=== PATIENT | male | born 1950 | race Caucasian/White ===

== ENCOUNTER → 2016-07-10 | Outpatient (CLI) | payer MEDICARE ==
--- NOTE | 2016-07-10 13:18 | REP ---
Clinical: Trauma. Technique: AP, lateral, bilateral oblique views of the left toes. Findings: There is a very subtle intra-articular corner fracture at the base of the second toe distal phalanx involving the DIP joint. No other fracture dislocation identified. Impression: Small corner fracture at the base of the second toe distal phalanx. Signed by Tom Heath MD 07/10/2016 01:09 P
== END ==
LOC: M RAD 12:43
PROVIDERS: ATTEND Physician Assistant Medical
DX: S92.535A Nondisplaced fracture of distal phalanx of left lesser toe(s), initial encounter for closed fracture (principal); X58.XXXA Exposure to other specified factors, initial encounter; Y92.89 Other specified places as the place of occurrence of the external cause; Y93.89 Activity, other specified; Y99.8 Other external cause status

== ENCOUNTER → 2016-07-13 | Outpatient (CLI) | payer MEDICARE | LOC: M WUC 08:56 | PROVIDERS: ATTEND Physician Assistant Medical | DX: G40.89 Other seizures (principal) ==

== ENCOUNTER → 2016-08-04 | Outpatient (CLI) | payer MEDICARE ==
--- NOTE | 2016-08-04 13:10 | REP ---
Lumbar spine five views History: Back pain There is no acute fracture or subluxation. The L3-4 through L5-S1 intervertebral discs are decreased in height consistent with disc degeneration. Osteophytes are present on L1-5. There is narrowing of the L4-5 and L5-S1 facet joints. There is scoliosis convex to the right. IMPRESSION: Degenerative change as described above. Signed by David Jimenez MD 08/04/2016 01:31 P
== END ==
LOC: M WUC 11:53
PROVIDERS: ATTEND Family Medicine
DX: M51.36 Other intervertebral disc degeneration, lumbar region (principal); M51.37 Other intervertebral disc degeneration, lumbosacral region

== ENCOUNTER 2016-09-01 23:17 | Inpatient (IN) | payer MEDICARE, MEDICAID ==
[~2016-09-01] VITALS: Ht 175.3 cm; Wt 77.2 kg
[2016-09-01] MEDS ORDERED: KEPP500T5 (23:37)
[2016-09-01] MEDS ORDERED: COMB0.2S OU (23:37)
[2016-09-01] MEDS ORDERED: OXYB5TA PO (23:37)
[2016-09-01] MEDS ORDERED: FIBE62TA PO (23:37)
[2016-09-01] MEDS ORDERED: DIVA500T3 PO (23:37)
[2016-09-01] MEDS ORDERED: FLOM5CAP PO (23:37)
[2016-09-01] MEDS ORDERED: COLA100C3 PO (23:37)
[2016-09-01] MEDS ORDERED: PROV100T4 PO (23:37)
[2016-09-01] MEDS ORDERED: [UNRECOGNIZED DRUG - OTHER] (23:37)
[2016-09-01] MEDS ORDERED: VIMP50TA3 PO (23:37)
[2016-09-02] MEDS ORDERED: ONDANSETRON 4MG/2ML VIAL (J2405) IV ONE (00:30)
[2016-09-02] MEDS ORDERED: MORPHINE 4 MG/ML 1ML SYRINGE IV PRN (00:30)
[2016-09-02 01:06] LABS: BASO % 0.2 % (0.0-1.0); EOS % 0.2 % (0.0-3.0); LARGE UNSTAINED CELL % 0.3 % (0.0-4.0); LYMPH # 0.5 K/mm3 (1.5-4.5); LYMPH % 3.7 % (24.0-44.0); MEAN CORPUSCULAR HEMOGLOBIN 31.4 pg (27.0-33.0); MEAN CORPUSCULAR HGB CONC 34.7 g/dl (32.0-36.5); MEAN CORPUSCULAR VOLUME 90.4 fl (80.0-96.0); MONO # 0.4 K/mm3 (0.0-0.8); MONO % 3.7 % (0.0-5.0); NEUTROPHILS # 10.5 K/mm3 (1.8-7.7); NEUTROPHILS % 91.9 % (36.0-66.0); PLATELET COUNT, AUTOMATED 221 k/mm3 (150-450); RED CELL DISTRIBUTION WIDTH 13.8 % (11.5-14.5); WHITE BLOOD COUNT 11.4 K/mm3 (4.0-10.0)
[2016-09-02] MEDS ORDERED: ISOVUE-370 76% 100ML VIAL (Q9967) As Ordered ONE (01:08)
[2016-09-02 01:33] LABS: ALBUMIN 3.7 GM/DL (3.2-5.2); ALBUMIN/GLOBULIN RATIO 1.09 (1.00-1.93); ALKALINE PHOSPHATASE 94 U/L (45-117); ALT/SGPT 19 U/L (12-78); ANION GAP 6 MEQ/L (8-16); AST/SGOT 13 U/L (15-37); BILIRUBIN,DIRECT 0.2 MG/DL (0.0-0.2); BILIRUBIN,TOTAL 0.5 MG/DL (0.2-1.0); BLOOD UREA NITROGEN 16 MG/DL (7-18); CALCIUM LEVEL 8.7 MG/DL (8.8-10.2); CARBON DIOXIDE LEVEL 30 MEQ/L (21-32); CHLORIDE LEVEL 93 MEQ/L (98-107); CREATININE FOR GFR 0.69 MG/DL (0.70-1.30); GLOMERULAR FILTRATION RATE > 60.0 (>49); GLUCOSE, FASTING 148 MG/DL (80-110); POTASSIUM SERUM 4.3 MEQ/L (3.5-5.1); SODIUM LEVEL 129 MEQ/L (136-145); TOTAL PROTEIN 7.1 GM/DL (6.4-8.2)
--- NOTE | 2016-09-02 02:30 | REPUSA ---
CLINICAL HISTORY: Abdominal pain. TECHNIQUE: Multiple axial, sagittal and coronal CT images were obtained through the abdomen and pelvi s after administration of oral and intravenous contrast material. COMMENTS: Comparison is made to the prior exam performed on 06/10/2015. Interval appearance of bilateral basilar atelectatic pulmonary changes and groundglass densities of t he lung bases. Moderate sliding hiatal hernia. Fluid and air distended stomach. Moderate partial small bowel obstruction. Transition zone in the right lower quadrant. Associated mil d ascites. Partial colectomy. Unremarkable left total quadrant colostomy. The liver is of uniform attenuation without mass or defect. There is no intra or extrahepatic biliary ductal dilatation. The spleen is normal. The gallbladder is distended containing multiple gallstones . The pancreas is of normal contour and attenuation characteristics. There is no evidence of adrenal mass. Both kidneys demonstrate prompt and equal nephrograms. The kidneys are normal in size, shape and conf iguration. There is no evidence of renal or ureteral mass. No renal or ureteral calculi are identifie d. There is no hydroureter or hydronephrosis. No evidence for appendicitis. There is no evidence of intrinsic or extrinsic bladder mass. Images of the lung bases show no evidence of pleural or parenchymal mass. There are no pleural effusi ons. Bilateral basilar atelectatic pulmonary changes. The bony structures are free of lytic or blastic lesions. Multilevel degenerative changes are seen in volving the thoracolumbar spine. Scattered calcifications are seen involving the aorta and major bran ches compatible with atherosclerosis. IMPRESSION: Moderate partial small bowel obstruction. Transition zone in the right lower quadrant. No evidence of bowel perforation or pneumatosis intestinalis. Mild ascites. Sliding hiatal hernia. Significantly distended gallbladder containing gallstones. Thank you for your kind referral of this patient.
[2016-09-02] MEDS ORDERED: FLON50SP (03:59)
[2016-09-02] MEDS ORDERED: MODA200T15 PO (03:59)
[2016-09-02] MEDS ORDERED: KEPP500T6 PO (03:59)
[2016-09-02] MEDS ORDERED: TRAV04OPD OU (03:59)
[2016-09-02] MEDS ORDERED: ALEN70TA39 PO (03:59)
[2016-09-02] MEDS ORDERED: CALCTAB68 PO (03:59)
[2016-09-02] MEDS ORDERED: ACET-654 PO (04:00)
[2016-09-02 04:45] VITALS: BP 139/82
[2016-09-02] MEDS ORDERED: ONDANSETRON 4MG/2ML VIAL (J2405) IV PRN (05:15)
[2016-09-02] MEDS: LR 1,000 ML IV SCH ×2 (05:24→14:36)
[2016-09-02 06:00] VITALS: BP 135/71
[2016-09-02 08:00] VITALS: BP 147/77
[2016-09-02] MEDS ORDERED: MAGNESIUM CITRATE 300 ML BTL PO ONE (09:15)
[2016-09-02] MEDS: PANTOPRAZOLE 40MG INJ (PROTONIX) (C9113) IV SCH (10:37)
[2016-09-02] MEDS: SENOKOT S TAB PO SCH ×2 (10:37→22:04)
[2016-09-02] MEDS: levETIRAcetam 250MG TABLET (KEPPRA) PO SCH ×2 (10:37→22:03)
[2016-09-02] MEDS: LACOSAMIDE 50 MG TAB (VIMPAT) PO SCH ×2 (10:37→22:03)
[2016-09-02] MEDS: DIVALPROEX 500 MG TAB PO SCH ×3 (10:37→22:03)
[2016-09-02] MEDS: AMPICILLIN SOD/SULBACTAM SOD 3 GM in D5W MINI-BAG PLUS 100 ML IV SCH ×3 (10:38→22:23)
[2016-09-02] MEDS: MODAFINIL 200MG TABLET PO SCH (10:38)
--- NOTE | 2016-09-02 10:58 | HPE ---
DATE OF ADMISSION: 09/02/2016 CHIEF COMPLAINT: Abdominal pain. HISTORY OF PRESENT ILLNESS: The patient 65-year-old male, currently a [facility] ([facility]) patient with mild intellectual disability. Presents to the emergency room (ER) with complaints of pain around his ostomy and low outputs for the past couple of days. He had a couple episodes of nausea and vomiting; and once he reached the emergency room, his bag was full the air. Laboratories were completed that showed he had a slightly elevated white count, as well as some hyponatremia; and then a CT scan was done, which showed some slightly dilated loops of small intestine with a transition zone somewhere in the right lower quadrant. No distinct transition site was identified. The patient does have the ostomy in the left lower quadrant. He is unsure of what this was for. He thinks it was due to having some bowel in the area, but the patient is a fairly poor historian. He was able to answer a few yes-and-no questions but not much more than that. The rest of her the history was obtained from his limited chart. These symptoms appear to have only been going on for a day or two. Currently, on examination, he feels much better. He has no more nausea or vomiting. No abdominal pains. He denies fevers, although the nurses reported a fever of 100.6 this morning. No problems with cough, shortness of breath. No difficulty with ambulation and no difficulty with diet. ALLERGIES: None. HOME MEDICATIONS: Please see medical record. REVIEW OF SYSTEMS: As per the history of present illness (HPI). MEDICAL HISTORY: History of seizures, osteoporosis, benign prostatic hypertrophy (BPH), and a colostomy. PAST SURGICAL HISTORY: Left knee surgery and a colostomy creation. SOCIAL HISTORY: Negative. PHYSICAL EXAMINATION: General: The patient is awake and alert. Vital signs: Temperature 98.9, pulse 72, respirations 18, blood pressure 138/81, pulse oximetry 96% on room air. HEENT: Pupils equally round and react to light and accommodation. Heart: S1, S2. Regular rate and rhythm. Lungs: Clear to auscultation bilaterally. Abdomen: Soft, nondistended, and nontender. Ostomy in the left lower quadrant. No signs of parastomal hernia. The ostomy is pink and patent. There is no air or stool in the bag currently. Extremities: No clubbing, cyanosis, or edema. LABORATORIES: White count 11.4, hemoglobin 13.3, platelets 221. Sodium 129, potassium 4.3, creatinine 0.69, lipase 139. IMAGING: CT abdomen and pelvis shows a moderate partial small bowel obstruction, transition zone in the right lower quadrant. No evidence of bowel perforation or pneumatosis intestinalis. ASSESSMENT AND PLAN: The patient is a 65-year-old male, currently a [facility] patient, presents with some vomiting and some abdominal pain, found to have a partial versus complete small bowel obstruction on CAT scan. He also has a mild leukocytosis, mild hyponatremia. Recommendation at this time is to keep him with the nasogastric (NG) tube for decompression. He has already had about 300-400 mL of dark liquid out, and the abdomen is soft and nondistended. Once he starts to have output from his ostomy, we will remove the NG tube, started him on a clear-liquid diet, and once he is having normal output from his ostomy and his abdominal pain is resolved, he will be able to be discharged home. We will replace his sodium slowly, give him a dose of antibiotics because of the mild leukocytosis. This partial small bowel obstruction could be secondary to an inflammatory versus infectious source versus scar tissue from previous surgeries, and the antibiotics will help to resolve it if it is a mild infectious source. On further review of the CT scan, he does also appear to have a significant amount of stool and air in the large intestine. Therefore, I will also attempt to clamp his NG tube later this afternoon and give him a half a dose of magnesium citrate to see if that will help to flush out his system gently, as well; and then again, once his ostomy is producing, the NG tube will be removed, and we will slowly advance his diet until he is ready be discharged home.
[2016-09-02] MEDS: HEPARIN SOD (PORCINE) 5000 UNITS/ML VIAL SC SCH ×2 (14:34→22:05)
[2016-09-02 16:00] VITALS: BP 141/74
[2016-09-02] MEDS: MORPHINE 2 MG/ML 1ML SYRINGE IV PRN (20:04)
--- NOTE | 2016-09-02 20:11 | REP ---
Clinical: NG tube placement. Technique: Two portable semiupright views of the chest. Findings: A nasogastric tube is identified coiled back in the mid esophagus. Mediastinum and cardiac silhouette are stable. Bibasilar atelectasis is suggested. Impression: Nasogastric tube coiled back in the mid esophagus. Bibasilar atelectasis. Signed by Tom Heath MD 09/02/2016 08:01 P
[2016-09-02 22:00] VITALS: BP 144/77
[2016-09-02] MEDS: TAMSULOSIN 0.4 MG CAP PO SCH (22:03)
[2016-09-02] MEDS: oxyBUTYnin 5 MG TAB PO SCH (22:04)
[2016-09-02] MEDS: LATANOPROST 0.005% OPHTH SOLN 2.5 ML OU SCH (22:05)
[2016-09-03] MEDS: LR 1,000 ML IV SCH ×2 (01:46→10:15)
[2016-09-03] MEDS: MORPHINE 2 MG/ML 1ML SYRINGE IV PRN ×3 (01:47→21:08)
[2016-09-03] MEDS: AMPICILLIN SOD/SULBACTAM SOD 3 GM in D5W MINI-BAG PLUS 100 ML IV SCH ×4 (05:46→22:00)
[2016-09-03] MEDS: HEPARIN SOD (PORCINE) 5000 UNITS/ML VIAL SC SCH ×3 (05:47→21:08)
[2016-09-03 06:00] VITALS: BP 142/80
[2016-09-03 07:00] LABS: MEAN CORPUSCULAR HEMOGLOBIN 31.2 pg (27.0-33.0); MEAN CORPUSCULAR HGB CONC 34.9 g/dl (32.0-36.5); MEAN CORPUSCULAR VOLUME 89.3 fl (80.0-96.0); RED CELL DISTRIBUTION WIDTH 13.5 % (11.5-14.5)
[2016-09-03 07:34] LABS: ANION GAP 7 MEQ/L (8-16); BLOOD UREA NITROGEN 11 MG/DL (7-18); CALCIUM LEVEL 7.7 MG/DL (8.8-10.2); CARBON DIOXIDE LEVEL 30 MEQ/L (21-32); CHLORIDE LEVEL 93 MEQ/L (98-107); CREATININE FOR GFR 0.59 MG/DL (0.70-1.30); GLOMERULAR FILTRATION RATE > 60.0 (>49); GLUCOSE, FASTING 120 MG/DL (80-110); MAGNESIUM LEVEL 1.9 MG/DL (1.8-2.4); POTASSIUM SERUM 3.7 MEQ/L (3.5-5.1); SODIUM LEVEL 130 MEQ/L (136-145)
--- NOTE | 2016-09-03 07:37 | REP ---
Clinical: Nasogastric tube placement. Comparison: 09/02/2016 at 07:27 p.m. Findings: Nasogastric tube is now identified in satisfactory position extending below left hemidiaphragm. Bibasilar infiltrate/atelectasis again noted. Small layering effusion cannot be excluded. No pneumothorax. Mediastinum and cardiac silhouette are stable. Atherosclerotic changes to the thoracic aorta again noted. Skeletal structures intact. Impression: Nasogastric tube courses below left hemidiaphragm in satisfactory position. Bibasilar atelectasis/infiltrate. Signed by Tom Heath MD 09/03/2016 07:29 A
[2016-09-03] MEDS: PANTOPRAZOLE 40MG INJ (PROTONIX) (C9113) IV SCH (09:27)
[2016-09-03] MEDS: SENOKOT S TAB PO SCH ×2 (09:30→20:04)
[2016-09-03] MEDS: DIVALPROEX 500 MG TAB PO SCH ×3 (09:30→20:04)
[2016-09-03] MEDS: LACOSAMIDE 50 MG TAB (VIMPAT) PO SCH ×2 (09:31→20:04)
[2016-09-03] MEDS: levETIRAcetam 250MG TABLET (KEPPRA) PO SCH ×2 (09:31→20:04)
[2016-09-03] MEDS: MODAFINIL 200MG TABLET PO SCH (09:31)
[2016-09-03 14:00] VITALS: BP 139/89
[2016-09-03] MEDS: KCL 10MEQ IN D5/0.45NS 1000ML 1,000 ML IV SCH (15:06)
[2016-09-03] MEDS: BISACODYL 10 MG SUPP XX SCH ×2 (16:43→23:01)
[2016-09-03] MEDS: oxyBUTYnin 5 MG TAB PO SCH (20:04)
[2016-09-03] MEDS: LATANOPROST 0.005% OPHTH SOLN 2.5 ML OU SCH (20:04)
[2016-09-03] MEDS: TAMSULOSIN 0.4 MG CAP PO SCH (20:04)
[2016-09-03 20:45] VITALS: BP 132/77
[2016-09-04] VITALS (13 sets, daily range): BP systolic 96–119; BP diastolic 61–71
[2016-09-04] MEDS: KCL 10MEQ IN D5/0.45NS 1000ML 1,000 ML IV SCH ×2 (01:35→04:05)
[2016-09-04] MEDS: AMPICILLIN SOD/SULBACTAM SOD 3 GM in D5W MINI-BAG PLUS 100 ML IV SCH (04:04)
[2016-09-04] MEDS ORDERED: LR 500 ML IV ONE (04:30)
[2016-09-04] MEDS: HEPARIN SOD (PORCINE) 5000 UNITS/ML VIAL SC SCH ×3 (05:41→23:33)
[2016-09-04] MEDS: BISACODYL 10 MG SUPP XX SCH ×3 (05:41→17:32)
[2016-09-04] MEDS ORDERED: ALENDRONATE 70 MG TABLET (FOSAMAX) PO SCH (06:00)
[2016-09-04] MEDS: ACETAMINOPHEN 325 MG SUPP PR PRN (06:06)
[2016-09-04 06:55] LABS: MEAN CORPUSCULAR HEMOGLOBIN 31.2 pg (27.0-33.0); MEAN CORPUSCULAR VOLUME 89.1 fl (80.0-96.0); PLATELET COUNT, AUTOMATED 170 k/mm3 (150-450); RED CELL DISTRIBUTION WIDTH 13.6 % (11.5-14.5); WHITE BLOOD COUNT 3.4 K/mm3 (4.0-10.0)
[2016-09-04 07:04] LABS: ANION GAP 7 MEQ/L (8-16); BLOOD UREA NITROGEN 15 MG/DL (7-18); CALCIUM LEVEL 7.7 MG/DL (8.8-10.2); CARBON DIOXIDE LEVEL 28 MEQ/L (21-32); CHLORIDE LEVEL 91 MEQ/L (98-107); CREATININE FOR GFR 0.66 MG/DL (0.70-1.30); GLOMERULAR FILTRATION RATE > 60.0 (>49); GLUCOSE, FASTING 116 MG/DL (80-110); MAGNESIUM LEVEL 2.1 MG/DL (1.8-2.4); POTASSIUM SERUM 3.7 MEQ/L (3.5-5.1); SODIUM LEVEL 126 MEQ/L (136-145)
--- NOTE | 2016-09-04 07:06 | REP ---
Clinical: Abdominal distension. Pneumoperitoneum. Technique: Portable supine view of the abdomen and pelvis. Findings: Evaluation is significantly limited by technique. A nasogastric tube is identified just passing the level of diaphragm and may warrant advancement. Gas filled stomach and air filled loops of bowel are identified along with diffuse hazy opacifications. No secondary signs are appreciated to suggest pneumoperitoneum although evaluation is significantly limited. Ostomy is identified overlying the left lower quadrant. Impression: 1. Significantly limited examination demonstrating air-filled stomach and for bowel without obvious or secondary signs of pneumoperitoneum. 2. Consider advancement of the nasogastric tube which is suspected to be just below the level of diaphragm. Signed by Tom Heath MD 09/04/2016 06:58 A
[2016-09-04] MEDS ORDERED: SODIUM CHLORIDE 0.9% 1000 ML IV ONE ×2 (07:30→14:30)
--- NOTE | 2016-09-04 07:50 | CR ---
DATE OF CONSULTATION: 09/04/2016 REASON FOR CONSULTATION: Atrial fibrillation with rapid ventricular response (RVR). CONSULTING PHYSICIAN: Dr. Faye covering for Dr. Ackerman. HISTORY OF PRESENT ILLNESS: Patient is a 65-year-old, [facility]) patient who presented to the hospital on 09/03/2016 after he started having pain around his colostomy and low output over the past 2 days. Patient had two episodes of nausea and vomiting. In the emergency room, he underwent a CT scan which showed slightly dilated loops of small intestine with transition zone somewhere in the right lower quadrant. He was admitted under surgical service for partial versus complete small bowel obstruction. Nasogastric (NG) tube was placed and patient was started on Unasyn for possible infectious etiology. Earlier this morning, patient went into atrial fibrillation RVR with heart rate in the 160s and the hospitalist service was consulted. REVIEW OF SYSTEMS: Unable to obtain due to patient's current mental status. PAST MEDICAL HISTORY: Significant for a history of seizures, osteoporosis, BPH and colostomy. SURGICAL HISTORY: Significant for colostomy and left knee surgery. SOCIAL HISTORY: Patient lives in a [facility] facility. FAMILY HISTORY: Noncontributory. ALLERGIES: None. HOME MEDICATIONS: Include: - Tylenol 650 mg every 4 hours as needed for pain - alendronate 70 mg by mouth once a week - calcium polycarbophil one tablet by mouth twice a day - calcium with vitamin D one tablet by mouth twice a day - divalproex 500 mg by mouth three times a day - Colace 100 mg by mouth twice a day - oxybutynin 5 mg at bedtime - modafinil 4 mg by mouth daily - Keppra 500 mg by mouth twice a day - Vimpat 50 mg by mouth twice a day - Flomax 0.4 mg at bedtime - Travatan one drop in each eye at bedtime PHYSICAL FINDINGS: Vital signs: 100.2 for temperature, pulse is 176, respiratory rate 30, blood pressure is 98/66, pulse oximetry 92% on 2 liter nasal cannula. HEENT: Pupils equal, round, and reactive to light and accommodation. Neck: Supple. No jugular venous distention (JVD). Lungs: Clear to auscultation (CTA) bilaterally. Abdomen: No tenderness to palpation, but abdomen is distended with hypoactive bowel sounds. Extremities: No clubbing, cyanosis or edema. LABORATORY FINDINGS: Sodium 126, potassium 3.7, chloride 91, BUN 15, creatinine 0.66, fasting glucose 116, calcium 7.7. Lactic acid yesterday was 1.3. WBC 3.4, hemoglobin 14, hematocrit 40.1, platelet count 170. Blood cultures are pending. Patient underwent a CT abdomen and pelvis on admission, which showed moderate partial small bowel obstruction. No evidence of bowel perforation. Another KUB was ordered this morning, which showed significantly limited exam, but demonstrating air-filled stomach and bowel without obvious or secondary signs of pneumoperitoneum. Chest x-ray showed NG tube in place and bibasilar atelectasis. ASSESSMENT AND PLAN: 1. Sepsis. Unknown etiology at this time. May be secondary to gastrointestinal process versus other. We will obtain blood cultures times two sets. We will start patient on broad-spectrum antibiotics, vancomycin and Zosyn. We will order lactic acid. We will continue IV fluids after a bolus of 500 mL. We will transfer patient down to progressive care unit (PCU). 2. Atrial fibrillation with rapid ventricular response. Likely secondary to sepsis with unknown etiology. We will start patient on a 500 mL fluid bolus and monitor on telemetry. May need cardiology consultation. 3. Small bowel obstruction. Surgery is involved in managing. Patient currently has NG tube with low output per KUB this morning. NG tube may need to be readjusted. We will defer to surgery for further imaging. 4. History of seizure disorder. Continue patient's home medications. 5. History of osteoporosis. 6. Deep venous thrombosis (DVT) prophylaxis. Sequential compressive devices (SCDs) while in bed.
[2016-09-04] MEDS: VANCOMYCIN HCL 1,000 MG, VIAL MATE ADAPTER 1 EACH in D5W 250 ML IV SCH ×2 (08:06→17:36)
[2016-09-04 08:17] LABS: BLOOD UREA NITROGEN 16 MG/DL (7-18); CHLORIDE LEVEL 91 MEQ/L (98-107); CREATININE FOR GFR 0.68 MG/DL (0.70-1.30); GLOMERULAR FILTRATION RATE > 60.0 (>49); GLUCOSE, FASTING 123 MG/DL (80-110); POTASSIUM SERUM 3.9 MEQ/L (3.5-5.1); SODIUM LEVEL 129 MEQ/L (136-145)
[2016-09-04 08:18] LABS: ANION GAP 9 MEQ/L (8-16); CALCIUM LEVEL 7.4 MG/DL (8.8-10.2); CARBON DIOXIDE LEVEL 29 MEQ/L (21-32)
--- NOTE | 2016-09-04 08:39 | PHACANCOPD ---
PHARMACY VANCOMYCIN DOSING Pt Demographics Demographics Patient Age:65 , Weight:72.000 , Gender: male Adjusted Body Weight Date: 09/04/16, Adjusted Body Weight: Kg Events Past 24 Hours Events Past 24 Hours: YES: Fever, Pending Diagnostics Vancomycin Vancomycin indication: SEPSIS Vancomycin Target Ranges: 15-20 mcg/ml Vancomycin Load Y/N: Yes Load Dose Date Time Vancomycin Load Dose: 1750mg Date: 09/04/16 Time: 0800 Vancomycin Dose Date: 09/04/16. Current Vancomycin Dose: [1g IV Q8H] Intermittent Dosing?: No Labs Labs Item Value Date Time White Blood Count 3.4 K/mm3 L 09/04/16 0635 White Blood Count 15.0 K/mm3 H 09/03/16 0639 White Blood Count 11.4 K/mm3 H 09/02/16 0030 Creatinine 0.68 MG/DL L 09/04/16 0726 Creatinine 0.66 MG/DL L 09/04/16 0635 Creatinine 0.59 MG/DL L 09/03/16 0639 Micro Microbiology 09/04/16 Blood Culture, Received Pending 09/04/16 Blood Culture, Received Pending Creatinine Clearance Date:09/04/16. Estimated Creatinine Clearance: [>100ml/min]. Pending Labs Vancomycin trough scheduled 09/05/16 @0700, prior to the 4th dose Assessment and Plan Maintaining Current Dose?: Yes Reason for dose change: No Dose Change Pharmacist Note Pharmacist Note Date: 09/04/16. Pharmacist note: Day #1 empiric zosyn/vancomycin initiated with a 1750mg loading dose, followed by a maintenance regimen of 1g IV Q8H for the treatment of sepsis - aiming for a goal trough of 15-20mcg/ml. WBC and BP are currently low, and pulse, temp, and RR are elevated. No PMH of MRSA or vanco use here at [facility]. A vancomycin trough has been scheduled 09/05/16 @0700. We will continue to monitor and adjust accordingly. [facility] September 04, 2016 08:39
[2016-09-04] MEDS ORDERED: GASTROGRAFIN SOLUTION 30ML PO ONE (08:45)
[2016-09-04] MEDS: DIVALPROEX 500 MG TAB PO SCH ×2 (08:55→14:05)
[2016-09-04] MEDS: SENOKOT S TAB PO SCH (08:56)
[2016-09-04] MEDS: MODAFINIL 200MG TABLET PO SCH (08:56)
--- NOTE | 2016-09-04 08:56 | REP ---
Clinical: Hypoxia. Comparison: 09/02/2016. Findings: Moderate right pleural effusion is suggested with bibasilar atelectasis. Further evaluation is limited by portable technique and poor inspiratory effort. No free air is identified below the diaphragm to suspect pneumoperitoneum. Mediastinum and cardiac silhouette are stable. A nasogastric tube is identified with its tip just extending below the diaphragm and may warrant advancement. No pneumothorax. Skeletal structures intact. Impression: Suspected moderate right pleural effusion and basilar atelectasis. Consider advancement to the nasogastric tube. No obvious free air below diaphragm to suspect pneumoperitoneum. Signed by Tom Heath MD 09/04/2016 08:47 A
[2016-09-04] MEDS ORDERED: VANCOMYCIN HCL 750 MG, VIAL MATE ADAPTER 1 EACH in D5W 250 ML IV ONE ×2 (09:00→21:58)
[2016-09-04] MEDS ORDERED: PREVNAR 13 VACCINE SYRINGE (CPT CODE:90670) IM ONE (09:00)
[2016-09-04] MEDS ORDERED: LACOSAMIDE 10MG/ML 20ML VIAL (VIMPAT) (C9254) IV SCH (09:00)
[2016-09-04] MEDS: PANTOPRAZOLE 40MG INJ (PROTONIX) (C9113) IV SCH (09:10)
[2016-09-04] MEDS: LACOSAMIDE 10MG/ML 20ML VIAL (VIMPAT) (C9254) IV SCH (09:11)
[2016-09-04] MEDS ORDERED: GASTROGRAFIN SOLUTION 30ML (Q9963) PO ONE ×2 (09:15→21:58)
[2016-09-04] MEDS ORDERED: NS 1,500 ML IV ONE (09:30)
[2016-09-04 09:31] LABS: BASO % 0.3 % (0.0-1.0); EOS % 0.3 % (0.0-3.0); LARGE UNSTAINED CELL # 0.1 K/mm3 (0.0-0.4); LARGE UNSTAINED CELL % 1.4 % (0.0-4.0); LYMPH # 0.5 K/mm3 (1.5-4.5); LYMPH % 11.8 % (24.0-44.0); MONO # 0.6 K/mm3 (0.0-0.8); MONO % 17.2 % (0.0-5.0); NEUTROPHILS # 2.4 K/mm3 (1.8-7.7); NEUTROPHILS % 69.1 % (36.0-66.0)
[2016-09-04 09:50] LABS: BANDS 16 % (< 11); BASOPHILS 1 % (0-4); EOSINOPHILS 1 % (0-5)
[2016-09-04 09:58] LABS: DIFF SLIDE NUMBER 28
[2016-09-04 10:10] LABS: OSMOLALITY SERUM 266 MOSM/KG (280-301)
[2016-09-04] MEDS ORDERED: ISOVUE-370 76% 100ML VIAL (Q9967) As Ordered ONE (10:29)
[2016-09-04] MEDS: PIPERACILLIN/TAZOBACTAM SOD 3.375 GM in D5W MINI-BAG PLUS 50 ML IV SCH ×2 (11:22→18:00)
--- NOTE | 2016-09-04 11:22 | REP ---
Clinical: Bowel obstruction. Comparison: 09/02/2016. Technique: Axial contrast enhanced images from the lung bases to the pubic symphysis using oral and 100 ml Isovue 370 intravenous contrast material with coronal and sagittal re-formations. Findings: There is evidence for high-grade small bowel obstruction with small-bowel fecal sign extending to the right lower abdomen/pelvis likely related to the point of obstruction, but the exact transition is not identifiable. The colon is completely collapsed to the ostomy in the left lower anterior abdominal wall. Moderate amount of free fluid is identified without free air to suggest perforation. Liver, spleen, pancreas, bilateral adrenal glands and kidneys are relatively normal. Incidental note is made of a 1.7 cm left renal cyst. Cholelithiasis noted without CT evidence for acute cholecystitis. Pelvis demonstrates a Tai catheter in collapsed bladder and age appropriate prostate/seminal vesicles. Normal Dawna's pouch identified in the pelvis. Musculoskeletal structures demonstrate degenerative changes including hemangioma in the T12 vertebral body as well as posterior left eighth through tenth rib fractures. Lung bases demonstrate right lower lobe consolidation and smaller left lower lobe consolidation along with small pleural effusions. Impression: 1. High-grade small bowel obstruction with transition suggested in the right lower abdomen. Complete collapse of the residual colon extending to the ostomy. Small to moderate amount of free fluid. No free air. 2. Moderate right and small left lower lobe consolidations with small pleural effusions. 3. Multiple nondisplaced left posterior rib fractures appear subacute. 4. 1.7 cm left renal cyst. Signed by Tom Heath MD 09/04/2016 11:14 A
[2016-09-04 11:24] LABS: MEAN CORPUSCULAR HEMOGLOBIN 30.5 pg (27.0-33.0); MEAN CORPUSCULAR HGB CONC 33.8 g/dl (32.0-36.5); MEAN CORPUSCULAR VOLUME 90.2 fl (80.0-96.0); PLATELET COUNT, AUTOMATED 144 k/mm3 (150-450); RED CELL DISTRIBUTION WIDTH 13.4 % (11.5-14.5)
--- NOTE | 2016-09-04 11:29 | REP ---
Clinical: Small bowel obstruction and chest pain with dyspnea. Rule out infiltrate. Technique: Axial contrast enhanced images from the thoracic inlet to the upper abdomen using 100 ml Isovue 370 intravenous contrast material with coronal and sagittal re-formations. Findings: Moderate right and small left lower lobe consolidations with associated small pleural effusions (right greater than left) noted. No pneumothorax. Tracheobronchial tree is patent. No obvious adenopathy. Atherosclerotic changes to the thoracic aorta and coronary arteries noted without aortic aneurysm/dissection or cardiomegaly. Nasogastric tube terminates at the gastroesophageal junction and oral contrast fills the mid/distal esophagus and stomach. Upper abdomen demonstrates presumed high-grade small bowel obstruction with ascites. Skeletal structures demonstrate a subacute left 8th through 11th rib fractures and hemangioma in the T12 vertebral body. Impression: 1. Moderate right and small left lower lobe consolidations with air bronchograms and associated pleural effusions. 2. The nasogastric tube terminates at the gastroesophageal junction and requires advancement. Oral contrast noted in the mid to distal esophagus and stomach. 3. Left 8th through 11th rib fractures appears subacute. Signed by Tom eHath MD 09/04/2016 11:20 A
[2016-09-04] MEDS ORDERED: MORPHINE 2 MG/ML 1ML SYRINGE IV ONE (11:30)
[2016-09-04 11:49] LABS: BANDS 6 % (< 11); BASOPHILS 1 % (0-4)
[2016-09-04 11:59] LABS: ANION GAP 6 MEQ/L (8-16); BLOOD UREA NITROGEN 13 MG/DL (7-18); CALCIUM LEVEL 7.1 MG/DL (8.8-10.2); CARBON DIOXIDE LEVEL 32 MEQ/L (21-32); CHLORIDE LEVEL 92 MEQ/L (98-107); CREATININE FOR GFR 0.69 MG/DL (0.70-1.30); GLOMERULAR FILTRATION RATE > 60.0 (>49); GLUCOSE, FASTING 94 MG/DL (80-110); POTASSIUM SERUM 4.1 MEQ/L (3.5-5.1); SODIUM LEVEL 130 MEQ/L (136-145)
[2016-09-04] MEDS: levETIRAcetam INJection 500 MG in D5W MINI-BAG PLUS 100 ML IV SCH ×2 (12:05→23:33)
[2016-09-04] MEDS: NS 1,000 ML IV SCH ×2 (12:26→23:26)
[2016-09-04] MEDS ORDERED: MORPHINE 2 MG/ML 1ML SYRINGE IV PRN (13:00)
--- NOTE | 2016-09-04 14:35 | ECGEPIP ---
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
--- NOTE | 2016-09-04 14:37 | IPNPDOC ---
Text Note Date of Service The patient was seen on 09/04/16. NOTE Subjective: Patient is a 65 year old male from [facility] with a PMHx of Seizures, Osteoporosis, BPH and Sigmoidectomy - s/p Colostomy (2/2 Obstruction) who presented to the ER on 09/03/2016 after there was decreased output from the colostomy. Patient was found to have nausea and vomiting. He received a CT abdomen/pelvis which revealed a SBO (partial vs. complete). He received an NGT and was started on Unasyn. On the morning of 09/04/2016 patient had gone into a tachycardic episode and the hospitalist service was consulted. Patient was seen and examined at the bedside. He was noted to have left upper / lower quadrant abdominal pain. Objective: Vitals (See below) General: Lying in bed, no acute distress, comfortable, AAOx3 HEENT: NC, AT, NGT in place CVS: Tachycardic, regular rhythm, +S1S2 Lungs: Fair air entry b/l, -w/r/r Abdomen: Soft, Mildly distended, Left upper / lower quadrant, +BSx4 Extremities: +PPx4, - Edema, - Calf tenderness Assessment and plan: 1. Hypotensive / Tachycardic - likely 2/2 sepsis, less likely 2/2 arrhythmia - Etiology of sepsis - likely 2/2 intra-abdominal source, possibly 2/2 healthcare associated pneumonia - Physical reveals L upper / lower quadrant abdominal pain; + Fever of 100.2F - EKG reviewed; appears regular, P waves present, sinus tachycardia - CT chest 09/04: moderate R & L LL consolidations + pleural effusions, L 8-11th rib fracture - CT abdomen / pelvis 09/04: high grade SBO, 1.7 cm L renal cyst - Will check cardiac enzymes and trend - Will f/u Blood cultures - Will continue with IV fluid hydration; s/p 2 L bolus, will give additional 1 L and c/w 100cc/hr - c/w Broad spectrum antibiotics (Vancomycin and Zosyn - Day #0); s/p Unasyn - Plan for surgical intervention today with Dr. Ackerman 2. SBO - c/w IV fluid hydration to improve HR - BP has improved - c/w NGT - Plan for surgical intervention today with Dr. Ackerman 3. Seizure disorder - converted some medications to IV route; given SBO and history of nausea / vomiting - c/w seizure precautions 4. Osteoporosis 5. DVT prophylaxis - c/w SCDs VS,Fishbone, I+O VS, Fishbone, I+O Laboratory Tests 09/04/16 06:35 Red Blood Count 4.50, Mean Corpuscular Volume 89.1, Mean Corpuscular Hemoglobin 31.2, Mean Corpuscular Hemoglobin Concent 35.0, Red Cell Distribution Width 13.6 , Calcium Level 7.7 L 09/04/16 07:26 Calcium Level 7.4 L 09/04/16 11:09 Red Blood Count 4.31, Mean Corpuscular Volume 90.2, Mean Corpuscular Hemoglobin 30.5, Mean Corpuscular Hemoglobin Concent 33.8, Red Cell Distribution Width 13.4 , Calcium Level 7.1 L Vital Signs Date Time Temp Pulse Resp B/P (MAP) Pulse Ox O2 Delivery O2 Flow Rate FiO2 09/04/16 13:28 18 95 Nasal Cannula 2.0 09/04/16 13:01 100.5 155 108/63 (78) I&O- Last 24 Hours up to 6 AM 09/04/16 06:00 Intake Total 790 ml Output Total 975 ml Balance -185 ml CONNOR JONES MD September 04, 2016 14:37
--- NOTE | 2016-09-04 14:40 | ECGEPIP ---
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
[2016-09-04 14:47] LABS: ALBUMIN 2.5 GM/DL (3.2-5.2); ALBUMIN/GLOBULIN RATIO 0.83 (1.00-1.93); ALKALINE PHOSPHATASE 62 U/L (45-117); ALT/SGPT 12 U/L (12-78); ANION GAP 8 MEQ/L (8-16); AST/SGOT 10 U/L (15-37); BILIRUBIN,TOTAL 0.8 MG/DL (0.2-1.0); BLOOD UREA NITROGEN 15 MG/DL (7-18); CALCIUM LEVEL 7.3 MG/DL (8.8-10.2); CARBON DIOXIDE LEVEL 28 MEQ/L (21-32); CHLORIDE LEVEL 92 MEQ/L (98-107); CREATININE FOR GFR 0.58 MG/DL (0.70-1.30); GLOMERULAR FILTRATION RATE > 60.0 (>49); GLUCOSE, FASTING 114 MG/DL (80-110); POTASSIUM SERUM 3.9 MEQ/L (3.5-5.1); SODIUM LEVEL 128 MEQ/L (136-145); TOTAL PROTEIN 5.5 GM/DL (6.4-8.2)
--- NOTE | 2016-09-04 14:48 | ECGEPIP ---
Stationary ECG Study [facility] Test Date: 2016-09-04 Pat Name: Kelli BANKS Department: Room: [place] [address] Gender: M Study Specialist: : 1950 Requested By: CONNOR JONES Order Number: [id number] Reading MD: Ankush Harley Measurements Intervals [place] Rate: 98 P: 46 WV: 136 QRS: 7 QRSD: 104 T: 32 QT: 334 QTc: 428 Interpretive Statements SINUS RHYTHM Low voltages with slow precordial R-wave progression Body habitus versus pulmonary disease Nonspecific ST/T-wave abnormalities Rhythm has converted from tracing earlier this same day. Electronically Signed On 09-04-2016 14:47:40 EDT by Ankush Harley
[2016-09-04 15:11] LABS: ANION GAP 5 MEQ/L (8-16); BLOOD UREA NITROGEN 12 MG/DL (7-18); CARBON DIOXIDE LEVEL 30 MEQ/L (21-32); CHLORIDE LEVEL 95 MEQ/L (98-107); CREATININE FOR GFR 0.55 MG/DL (0.70-1.30); GLOMERULAR FILTRATION RATE > 60.0 (>49); GLUCOSE, FASTING 101 MG/DL (80-110); POTASSIUM SERUM 3.8 MEQ/L (3.5-5.1); SODIUM LEVEL 130 MEQ/L (136-145)
[2016-09-04] MEDS ORDERED: PROPOFOL 200 MG/20 ML VIAL As Ordered ONE (16:54)
[2016-09-04] MEDS ORDERED: MIDAZOLAM INJ 5 MG/ML VIAL (J2250) As Ordered ONE (16:54)
[2016-09-04] MEDS ORDERED: ROCURONIUM BROMIDE 50 MG/5 ML VIAL As Ordered ONE ×3 (16:54→20:36)
[2016-09-04] MEDS ORDERED: fentaNYL 250 MCG/5 ML INJECTION (J3010) As Ordered ONE (16:54)
[2016-09-04] MEDS ORDERED: LIDOCAINE 2% INJ 100 MG/5 ML SDV (FOR ANES.) As Ordered ONE (16:54)
[2016-09-04] MEDS ORDERED: VANCOMYCIN 1000 MG/20 ML VIAL (J3370) As Ordered ONE (17:01)
[2016-09-04] MEDS ORDERED: PHENYLephrine HCL 500 MCG/5 ML (100MCG/ML) SYRINGE (J2370) As Ordered ONE ×2 (17:23→19:23)
[2016-09-04] MEDS ORDERED: PHENYLEPHRINE INJ 10MG/ML VIAL (J2370) As Ordered ONE (18:12)
[2016-09-04] MEDS ORDERED: HYDROmorphone HCL 2 MG/ML 1ML VIAL (J1170) As Ordered ONE (18:13)
[2016-09-04 18:20] LABS: ABG BASE EXCESS 1.9 (-2.0-2.0); ABG DEVICE MECHAN. VENT; ABG HCO3 24.7 MEQ/L (22.0-26.0); ABG PARTIAL PRESSURE CO2 32.6 mmHg (35.0-45.0); ABG PARTIAL PRESSURE O2 104.3 mmHg (75.0-100.0); ABG STANDARD HCO3 26.2 MEQ/L (22.0-26.0); ABG TOTAL CO2 25.7 MEQ/L (23.0-31.0); ABG pH (ARTERIAL) 7.497 UNITS (7.350-7.450)
[2016-09-04] MEDS ORDERED: DESFLURANE 240 ML INHALANT As Ordered ONE (19:04)
[2016-09-04] MEDS ORDERED: ESMOLOL INJ 100MG/10ML VIAL As Ordered ONE (19:35)
[2016-09-04 20:12] LABS: ABG BASE EXCESS -1.8 (-2.0-2.0); ABG DEVICE MECHAN. VENT; ABG HCO3 22.6 MEQ/L (22.0-26.0); ABG PARTIAL PRESSURE CO2 37.6 mmHg (35.0-45.0); ABG PARTIAL PRESSURE O2 83.5 mmHg (75.0-100.0); ABG STANDARD HCO3 22.9 MEQ/L (22.0-26.0); ABG TOTAL CO2 23.8 MEQ/L (23.0-31.0); ABG pH (ARTERIAL) 7.397 UNITS (7.350-7.450)
[2016-09-04] MEDS: LATANOPROST 0.005% OPHTH SOLN 2.5 ML OU SCH (21:00)
[2016-09-04] MEDS ORDERED: LACOSAMIDE 50 MG TAB (VIMPAT) PO SCH (21:58)
[2016-09-04] MEDS ORDERED: PROPOFOL 1,000 MG/100 ML VIAL As Ordered ONE (22:19)
[2016-09-04] MEDS ORDERED: fentaNYL 100 MCG/2 ML INJECTION (J3010) IV PRN (22:30)
[2016-09-04 22:31] LABS: ABG BASE EXCESS -3.9 (-2.0-2.0); ABG HCO3 21.1 MEQ/L (22.0-26.0); ABG PARTIAL PRESSURE CO2 38.2 mmHg (35.0-45.0); ABG PARTIAL PRESSURE O2 197.1 mmHg (75.0-100.0); ABG STANDARD HCO3 21.3 MEQ/L (22.0-26.0); ABG TOTAL CO2 22.3 MEQ/L (23.0-31.0)
[2016-09-04 22:32] LABS: DIFF SLIDE NUMBER 324; MEAN CORPUSCULAR HEMOGLOBIN 30.4 pg (27.0-33.0); MEAN CORPUSCULAR HGB CONC 34.6 g/dl (32.0-36.5); MEAN CORPUSCULAR VOLUME 87.8 fl (80.0-96.0); PLATELET COUNT, AUTOMATED 138 k/mm3 (150-450); RED CELL DISTRIBUTION WIDTH 14.7 % (11.5-14.5); WHITE BLOOD COUNT 2.2 K/mm3 (4.0-10.0)
[2016-09-04 22:42] LABS: OSMOLALITY SERUM 271 MOSM/KG (280-301)
[2016-09-04] MEDS ORDERED: NOREPINEPHRINE BITARTRATE 8 MG in D5W 500 ML IV SCH (22:45)
[2016-09-04 22:48] LABS: ALT/SGPT 7 U/L (12-78); ANION GAP 10 MEQ/L (8-16); AST/SGOT 7 U/L (15-37); BILIRUBIN,TOTAL 2.3 MG/DL (0.2-1.0); BLOOD UREA NITROGEN 13 MG/DL (7-18); CALCIUM LEVEL 5.9 MG/DL (8.8-10.2); CARBON DIOXIDE LEVEL 22 MEQ/L (21-32); CHLORIDE LEVEL 103 MEQ/L (98-107); CREATININE FOR GFR 0.62 MG/DL (0.70-1.30); GLOMERULAR FILTRATION RATE > 60.0 (>49); GLUCOSE, FASTING 138 MG/DL (80-110); PHOSPHORUS LEVEL 2.5 MG/DL (2.5-4.9); POTASSIUM SERUM 3.5 MEQ/L (3.5-5.1); SODIUM LEVEL 135 MEQ/L (136-145)
[2016-09-04 22:49] LABS: ALBUMIN 1.9 GM/DL (3.2-5.2); ALBUMIN/GLOBULIN RATIO 1.12 (1.00-1.93); ALKALINE PHOSPHATASE 48 U/L (45-117); CHOLESTEROL LEVEL < 50 MG/DL (< 200); MAGNESIUM LEVEL 1.6 MG/DL (1.8-2.4); TOTAL PROTEIN 3.6 GM/DL (6.4-8.2); TRIGLYCERIDES LEVEL 65 MG/DL (<150)
[2016-09-04 23:04] LABS: ANISOCYTOSIS 1+; BANDS 4 % (< 11); BASOPHILS 1 % (0-4)
[2016-09-04 23:05] LABS: DOHLE BODIES 1+
[2016-09-04] MEDS: PROPOFOL 1,000 MG in APPROPRIATE DILUENT 1 EA IV SCH (23:27)
[2016-09-04] MEDS: NOREPINEPHRINE BITARTRATE 8 MG in D5W 500 ML IV SCH (23:45)
[2016-09-04] MEDS: MORPHINE 2 MG/ML 1ML SYRINGE IV PRN (23:47)
[2016-09-05] VITALS (37 sets, daily range): BP systolic 80–142; BP diastolic 40–69
[2016-09-05] MEDS ORDERED: METOPROLOL 5 MG/5 ML VIAL As Ordered ONE
[2016-09-05] MEDS ORDERED: METOPROLOL 5 MG/5 ML VIAL IV STA (00:09)
[2016-09-05] MEDS ORDERED: NS 500 ML IV ONE ×3 (00:15→16:15)
[2016-09-05] MEDS: LACOSAMIDE 10MG/ML 20ML VIAL (VIMPAT) (C9254) IV SCH ×3 (00:35→21:33)
[2016-09-05] MEDS: oxyBUTYnin 5 MG TAB PO SCH ×2 (00:36→21:36)
[2016-09-05] MEDS: SENOKOT S TAB PO SCH ×3 (00:36→21:35)
[2016-09-05] MEDS: TAMSULOSIN 0.4 MG CAP PO SCH ×2 (00:36→21:36)
[2016-09-05] MEDS: DIVALPROEX 500 MG TAB PO SCH ×2 (00:36→08:23)
[2016-09-05] MEDS: MIDAZOLAM INJ 2 MG/2 ML VIAL (J2250) IV PRN ×12 (01:14→19:18)
[2016-09-05] MEDS: VANCOMYCIN HCL 1,000 MG, VIAL MATE ADAPTER 1 EACH in D5W 250 ML IV SCH ×3 (01:16→15:17)
[2016-09-05] MEDS: PIPERACILLIN/TAZOBACTAM SOD 3.375 GM in D5W MINI-BAG PLUS 50 ML IV SCH ×3 (02:38→17:44)
[2016-09-05] MEDS: PROPOFOL 1,000 MG in APPROPRIATE DILUENT 1 EA IV SCH ×3 (04:36→21:07)
[2016-09-05] MEDS: HEPARIN SOD (PORCINE) 5000 UNITS/ML VIAL SC SCH ×3 (05:10→21:35)
[2016-09-05] MEDS: BISACODYL 10 MG SUPP XX SCH ×3 (05:12→12:00)
[2016-09-05] MEDS: NOREPINEPHRINE BITARTRATE 8 MG in D5W 500 ML IV SCH ×3 (05:34→21:39)
[2016-09-05] MEDS: NS 1,000 ML IV SCH (05:34)
[2016-09-05] MEDS ORDERED: VASOPRESSIN INJ 20 UNITS/ML VIAL As Ordered ONE (05:37)
[2016-09-05] MEDS: VASOPRESSIN INJ 20 UNITS in NS 500 ML IV SCH ×3 (05:45→22:14)
[2016-09-05 05:57] LABS: ABG BASE EXCESS -0.1 (-2.0-2.0); ABG HCO3 23.2 MEQ/L (22.0-26.0); ABG PARTIAL PRESSURE CO2 33.2 mmHg (35.0-45.0); ABG PARTIAL PRESSURE O2 83.1 mmHg (75.0-100.0); ABG STANDARD HCO3 24.4 MEQ/L (22.0-26.0); ABG TOTAL CO2 24.2 MEQ/L (23.0-31.0); ABG pH (ARTERIAL) 7.462 UNITS (7.350-7.450)
[2016-09-05 06:19] LABS: MEAN CORPUSCULAR HEMOGLOBIN 30.5 pg (27.0-33.0); MEAN CORPUSCULAR HGB CONC 35.2 g/dl (32.0-36.5); MEAN CORPUSCULAR VOLUME 86.7 fl (80.0-96.0); PLATELET COUNT, AUTOMATED 136 k/mm3 (150-450); WHITE BLOOD COUNT 3.4 K/mm3 (4.0-10.0)
[2016-09-05 06:43] LABS: ALBUMIN 1.9 GM/DL (3.2-5.2); ALKALINE PHOSPHATASE 35 U/L (45-117); ALT/SGPT 8 U/L (12-78); ANION GAP 7 MEQ/L (8-16); AST/SGOT 9 U/L (15-37); BILIRUBIN,TOTAL 1.6 MG/DL (0.2-1.0); BLOOD UREA NITROGEN 15 MG/DL (7-18); CARBON DIOXIDE LEVEL 25 MEQ/L (21-32); CHLORIDE LEVEL 102 MEQ/L (98-107); CHOLESTEROL LEVEL 52 MG/DL (< 200); CREATININE FOR GFR 0.64 MG/DL (0.70-1.30); GLOMERULAR FILTRATION RATE > 60.0 (>49); GLUCOSE, FASTING 115 MG/DL (80-110); MAGNESIUM LEVEL 1.4 MG/DL (1.8-2.4); PHOSPHORUS LEVEL 1.6 MG/DL (2.5-4.9); POTASSIUM SERUM 3.4 MEQ/L (3.5-5.1); SODIUM LEVEL 134 MEQ/L (136-145); TOTAL PROTEIN 3.8 GM/DL (6.4-8.2); TRIGLYCERIDES LEVEL 80 MG/DL (<150)
--- NOTE | 2016-09-05 06:56 | REP ---
Clinical: Hypoxia. Comparison: 09/04/2016. Findings: Nasogastric tube in satisfactory position. Endotracheal tube appears to be approximately 3.3 cm above the ernesto. Mildly increasing bilateral opacities (right greater left) suggest layering pleural effusions. Air bronchograms in the right lower lobe suggests associated consolidation as well as bibasilar atelectasis. No pneumothorax. Mediastinum and cardiac silhouette stable. Impression: Suspected subtle increase in the bilateral pleural effusions with right lower lobe consolidation and bibasilar atelectasis. Signed by Tom Heath MD 09/05/2016 06:47 A
--- NOTE | 2016-09-05 06:58 | REP ---
Clinical: Shortness of breath. Fluid overload. Comparison: 09/04/2016. Findings: Endotracheal tube and nasogastric tube are in stable, satisfactory position. Right subclavian catheter with tip in the right atrium. The cardiac silhouette is stable and within normal limits. Lung modi demonstrate continued bilateral opacities (right greater than left) consistent with pleural effusions, right lower lobe consolidation and bibasilar atelectasis. Impression: Bibasilar opacities as described above similar to prior examination. Signed by Tom Heath MD 09/05/2016 06:49 A
[2016-09-05 07:03] LABS: BANDS 7 % (< 11)
--- NOTE | 2016-09-05 07:38 | PHACANCOPD ---
PHARMACY VANCOMYCIN DOSING Pt Demographics Demographics Patient Age:65 , Weight:84.200 , Gender: male Adjusted Body Weight Date: 09/04/16, Adjusted Body Weight: Kg Vancomycin Vancomycin indication: SEPSIS Vancomycin Target Ranges: 15-20 mcg/ml Vancomycin Load Y/N: Yes Load Dose Date Time Vancomycin Load Dose: 1750mg Date: 09/04/16 Time: 0800 Vancomycin Dose Date: 09/04/16. Current Vancomycin Dose: [1g IV Q8H] Intermittent Dosing?: No Labs Micro Microbiology 09/04/16 Blood Culture - Preliminary, Resulted No growth after 24 hours . All specim... 09/04/16 Blood Culture - Preliminary, Resulted No growth after 24 hours . All specim... Creatinine Clearance Date:09/04/16. Estimated Creatinine Clearance: [>100ml/min]. Pending Labs Vancomycin trough scheduled 09/05/16 @0700, prior to the 4th dose Assessment and Plan Maintaining Current Dose?: Yes Reason for dose change: No Dose Change Pharmacist Note Pharmacist Note 09/05/16: Day #2 empirix abx. Trough level today resulted at 11.5mcg/ml. I will schedule a 2g loading dose to be given this morning, and we will resume the 1g IV Q8H regimen thereafter. Scr remains stable, output is reduced, and blood cultures are still pending. A follow-up vancomycin trough has been scheduled for tomorrow, 09/05/16, at 1500. We will continue to monitor and make further dose adjustments if needed. Date: 09/04/16. Pharmacist note: Day #1 empiric zosyn/vancomycin initiated with a 1750mg loading dose, followed by a maintenance regimen of 1g IV Q8H for the treatment of sepsis - aiming for a goal trough of 15-20mcg/ml. WBC and BP are currently low, and pulse, temp, and RR are elevated. No PMH of MRSA or vanco use here at [facility]. A vancomycin trough has been scheduled 09/05/16 @0700. We will continue to monitor and adjust accordingly. SARAH BACA [facility] September 05, 2016 07:38
[2016-09-05] MEDS ORDERED: MAG SULF 1GM/100ML (MAG RUN) 1 GM in APPROPRIATE DILUENT 1 EA IV ONE (08:00)
[2016-09-05] MEDS ORDERED: NS 1,000 ML IV ONE ×2 (08:00→18:30)
[2016-09-05] MEDS: PANTOPRAZOLE 40MG INJ (PROTONIX) (C9113) IV SCH (08:21)
[2016-09-05] MEDS: levETIRAcetam INJection 500 MG in D5W MINI-BAG PLUS 100 ML IV SCH ×2 (08:24→21:00)
[2016-09-05] MEDS: MODAFINIL 200MG TABLET PO SCH (08:50)
[2016-09-05] MEDS ORDERED: VANCOMYCIN HCL 1,000 MG, VIAL MATE ADAPTER 1 EACH in D5W 250 ML IV ONE (09:00)
[2016-09-05] MEDS ORDERED: POTASSIUM PHOSPHATE INJ 30 MMOL in D5W 500 ML IV ONE (09:00)
--- NOTE | 2016-09-05 09:26 | REP ---
Portable chest x-ray: Single view. History: Respiratory failure. Comparison study: September 05, 2016. Findings: Endotracheal tube terminates in good position at the level of the transverse aorta. A right internal jugular venous line terminates in the region of the right atrium. NG tube enters the left upper quadrant of the abdomen. EKG electrodes are seen. The heart is unchanged in size, not enlarged. There is evidence of right pleural effusion and probably some left pleural fluid. This is unchanged. No new infiltrate is seen. Signed by Damian Gee MD 09/05/2016 11:19 A
--- NOTE | 2016-09-05 10:12 | CCN ---
DATE: 09/05/2016 START TIME: 09 hours STOP TIME: 0954 hours I again attended Mr. Quintero. The patient was examined. Electronic medical record and imaging has been reviewed. He remains intubated, sedated, and mechanically ventilated. Overnight, he had difficulties with his blood pressure and the hospitalist service did give additional IV fluids, but had increase in his Levophed, as well as the addition of vasopressin. Central venous pressure this morning remained between 8 and 12. Significant volume resuscitation was reinstituted. Blood pressure currently in the 120 systolic. He is beginning to make better urinary output. Maximum temperature (t-max) overnight 98.6, blood pressure 70s to currently the mid 120s. Heart rate was as high as 180 and currently is about 106 with a sinus mechanism. Respiratory rate upper teens to mid 20s. Most recent laboratories showed a white blood cell count of 3.4, hemoglobin 10.6, platelet count 136,000. Differential shows 78% segmented neutrophils, 7% bands. Sodium 134, potassium 3.4, chloride 102, CO2 of 25, BUN 15, creatinine is 0.64, glucose 115. Calcium 6, phosphorous 1.6, magnesium 1.4. Total bilirubin 1.6 today, down from 2.3 yesterday. Albumin 1.9. Most recent blood gas done on a PRVC rate of 15, tidal volume 400, PEEP 5, FiO2 of 30% shows pH of 7.462, PCO2 of 33.2, PO2 of 83.1, saturation of 97%. Chest x-ray is essentially an expiratory film, but lines and tubes appear in good position. On examination, when sedation is lightened, he is agitated. He does have significant underlying mental disability and is a resident of [facility] ([facility] . Pupils do react. Trachea is in the midline. Chest shows symmetric expansion, clear anteriorly, some dependent opening crackles and diminished breath sounds at the bases. No focal adventitious breath sounds are identified. Cardiac examination is mildly tachycardic but regular. Peripheral pulses palpable. There is diffuse trace edema. Abdomen shows dressings to be intact. Drains appear to be working well. Abdomen is generally soft. There may be some faint bowel sounds. Extremities show no cyanosis or clubbing. Diffuse edema, as noted above. Neurologically, he does have move all extremities when stimulated. 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 At this point, I plan no ventilator weaning today until we are sure that he is adequately volume resuscitated. CVPP was 8 to 12 this morning and I believe that it is safe to continue to push that as clinically he is still very volume responsive. As his fluids are increased, I would try to wean the Levophed first. I am in agreement with his current antibiotics. Ulcer and deep vein thrombosis (DVT) prophylaxis are in place through the primary service. He has not had any seizure activity. He is on his regular seizure medications, but currently the addition of Propofol and Versed for sedation both have seizure protective properties. Overall, he remains critically ill. I left the bedside at 0954 hours. 42 minutes of critical care time was delivered at the bedside, not including procedures.
[2016-09-05] MEDS: D5W/LR 1,000 ML IV SCH ×3 (11:39→21:07)
--- NOTE | 2016-09-05 14:51 | IPNPDOC ---
Text Note Date of Service The patient was seen on 09/05/16. NOTE Subjective: Patient is a 65 year old male from [facility] with a PMHx of Seizures, Osteoporosis, BPH and Sigmoidectomy - s/p Colostomy (2/2 Obstruction) who presented to the ER on 09/03/2016 after there was decreased output from the colostomy. Patient was found to have nausea and vomiting. He received a CT abdomen/pelvis which revealed a SBO (partial vs. complete). He received an NGT and was started on Unasyn. On the morning of 09/04/2016 patient had gone into a tachycardic episode and the hospitalist service was consulted. Patient was seen and examined at the bedside. He is currently intubated and sedated on a mechanical ventilator. Objective: Vitals (See below) General: Lying in bed, intubated and sedated HEENT: NC, AT, NGT in place, ETT in place CVS: Tachycardic, regular rhythm, +S1S2 Lungs: Fair air entry b/l, -w/r/r Abdomen: Soft, Mildly distended, Midline incision with dressing, Hypoactive BS Extremities: +PPx4, - Edema, - Calf tenderness Assessment and plan: 1. Hypotensive / Tachycardic - likely 2/2 sepsis, less likely 2/2 arrhythmia - Etiology of sepsis - likely 2/2 intra-abdominal source, possibly 2/2 healthcare associated pneumonia - Physical reveals L upper / lower quadrant abdominal pain; + Fever of 100.2F - EKG reviewed; appears regular, P waves present, sinus tachycardia - CT chest 09/04: moderate R & L LL consolidations + pleural effusions, L 8-11th rib fracture - CT abdomen / pelvis 09/04: high grade SBO, 1.7 cm L renal cyst - Blood cultures negative at 24 hours - s/p surgical intervention 09/04/[address] Ackerman - c/w IV fluid hydration; will adjust based on CVP - c/w Broad spectrum antibiotics (Vancomycin and Zosyn - Day #1); s/p Unasyn - c/w Pressor support (Levophed and Vasopressin) - will taper down as tolerated 2. Ventilator dependent respiratory failure - likely 2/2 hemodynamic instability - 2/2 sepsis - ABG this AM appears well compensated - Managed by Dr. Spicer in pulmonary / critical care 3. s/p SBO - c/w IV fluid hydration to improve HR - c/w NGT - s/p surgical intervention 4. Normocytic anemia - Hg has been trending down since surgery - s/p 2 unit PRBC - s/p 4 units FFP 5. Hyponatremia - likely 2/2 hypovolemic isotonic hyponatremia - c/w fluid resuscitation 6. Hypokalemia 7. Hypophosphatemia 8. Hypomagnesemia 9. Seizure disorder - converted some medications to IV route; given SBO and history of nausea / vomiting - c/w seizure precautions 10. Osteoporosis 11. DVT prophylaxis - c/w SCDs VS,Fishbone, I+O VS, Fishbone, I+O Laboratory Tests 09/04/16 14:38 Calcium Level 7.0 L 09/04/16 22:15 Calcium Level 5.9 #*L, Red Blood Count 4.11 L, Mean Corpuscular Volume 87.8, Mean Corpuscular Hemoglobin 30.4, Mean Corpuscular Hemoglobin Concent 34.6, Red Cell Distribution Width 14.7 H, Phosphorus Level 2.5, Aspartate Amino Transf ( AST/SGOT) 7 L, Alanine Aminotransferase (ALT/SGPT) 7 L, Lactate Dehydrogenase 118, Total Creatine Kinase 58, Alkaline Phosphatase 48, Total Bilirubin 2.3 #H, Triglycerides Level 65, Cholesterol Level < 50, Total Protein 3.6 #L, Albumin 1.9 #L 09/05/16 05:51 Calcium Level 6.0 L, Red Blood Count 3.47 L, Mean Corpuscular Volume 86.7, Mean Corpuscular Hemoglobin 30.5, Mean Corpuscular Hemoglobin Concent 35.2, Red Cell Distribution Width 15.0 H, Phosphorus Level 1.6 #L, Aspartate Amino Transf (AST/ SGOT) 9 L, Alanine Aminotransferase (ALT/SGPT) 8 L, Lactate Dehydrogenase 132, Total Creatine Kinase 65, Alkaline Phosphatase 35 L, Total Bilirubin 1.6 H, Triglycerides Level 80, Cholesterol Level 52, Total Protein 3.8 L, Albumin 1.9 L 09/05/16 13:30 Vital Signs Date Time Temp Pulse Resp B/P (MAP) Pulse Ox O2 Delivery O2 Flow Rate FiO2 09/05/16 12:16 101 102/59 (73) 98 112/51 (71) 09/05/16 12:01 97.0 17 09/05/16 12:00 30 09/05/16 06:00 Ventilator 09/04/16 14:01 2.0 I&O- Last 24 Hours up to 6 AM 09/05/16 05:59 Intake Total 8125 ml Output Total 3815 ml Balance 4310 ml CONNOR JONES MD September 05, 2016 14:51
[2016-09-05] MEDS: VALPROIC ACID SYRUP 250 MG/5 ML UDC PO SCH ×2 (17:44→21:36)
--- NOTE | 2016-09-05 17:50 | RO ---
DATE OF PROCEDURE: 09/04/2016 PREOPERATIVE DIAGNOSIS: Small bowel obstruction. POSTOPERATIVE DIAGNOSIS: Small bowel obstruction secondary to internal hernia with closed loop obstruction. PROCEDURES: Exploratory laparotomy with extensive lysis of adhesions, release of internal hernia, small bowel resection with primary anastomosis repair of small bowel enterotomy, abdominal washout and drain placement and SURGEON: Dr. Ackerman HOUSEHOLD COORDINATOR: Dr. Faye ANESTHESIA: General. ESTIMATED BLOOD LOSS: 800. COMPLICATIONS: None. INDICATIONS FOR PROCEDURE: The patient is a 65-year-old male presented with a small bowel obstruction. He continued to get progressively worse throughout the week which showed signs of sepsis starting early this morning with a heart rate 170. Therefore recommendation was to take him to the operation room for exploration. Risks and benefits of procedure were discussed with the patient's caregiver which is his sister. Risks include but are not limited bleeding, infection, hernia formation, damage to surrounding structures, possible need for further surgery and possible bowel resection and anastomotic leak. She understood the risks and agreed to proceed with the procedure. PROCEDURE: The patient brought back to operating room six after sufficient sedation the abdomen sterilely prepped and draped. Next a time-out was done to confirm patient and proper procedure. Following that a midline incision was created, incision was carried down to level of fascia with electrocautery. The fascia was then elevated and gently entered, there is serosanguineous fluid throughout the peritoneal cavity. This was all irrigated out along with a lot of very large distended loops of small bowel. The incision was extended superior and inferiorly. Inferiorly there were no adhesions the abdominal wall, superiorly there were adhesions to the abdominal wall. In the process obtained and down there was a small less than 1 cm enterotomy was created. This was oversewn with silk to prevent it from leaking throughout the rest of procedure. The next 2 1/2 hours was used to take down adhesions. There was a very tight band over the right midabdomen down to the left pelvis crossing through the entire abdominal cavity. There was a loop of small bowel underneath this that was twisted and completely kinked off and necrotic. All these adhesions were taken down. The bands were released. We were able to run the bowel from the ligament Treitz all the way to the terminal ileum. Once this was completed, the patient was starting to show signs of disseminated vascular coagulation (DIC), he was losing from every surface. We cannot control the oozing at all his blood pressure was dropping so we decided to resect the necrotic area, close abdomen and sent to the intensive care unit (ICU) for resuscitation. Took a KENDY 100 stapler and stapled across the small bowel proximal and distal to the area of that was necrotic. Went across the mesentery using the LigaSure. Once this was completed his bowel immediately started pink up. The oozing ceased and his blood pressure started to be stabilized. We cover up the bowel and waited a few minutes and let anesthesia recovery with a couple liters of fluid. He was much more stable, so he decided to continue the procedure because we were almost completed. Next, we made two small enterotomies on both sides of the small bowel where the anastomosis was to be created. KENDY 100 stapler was used to create a [id number] anastomosis. One KENDY stapler was used to bring the loops together parallel to each other another KENDY 100 load was used to go across the two enterotomies that we had created. Once this was completed the suture lines were oversewn with #3-0 silk sutures. The mesentery was then approximated with an 0 Vicryl suture. The other enterotomy that had been created in the proximal small bowel in the superior abdomen was elevated up and taken out with a TX 90 stapler. Once this was completed that was also oversewn with interrupted sutures. Both suture lines were then covered with Tisseel. The abdomen was irrigated. A 19-Thai Fredy drain was placed inside the pelvis next to the inferior anastomosis and brought out through the right lower quadrant. The fascia was then reapproximated with running #1 PDS sutures. The skin was brought together with staplers. Drains was tied in place with silk suture and abdomen was cleaned and dried, 4x4 and tape were applied thus ending procedure.
[2016-09-05] MEDS: MORPHINE 2 MG/ML 1ML SYRINGE IV PRN (18:28)
[2016-09-05 18:51] LABS: DIFF SLIDE NUMBER 313; MEAN CORPUSCULAR HEMOGLOBIN 30.1 pg (27.0-33.0); MEAN CORPUSCULAR HGB CONC 34.4 g/dl (32.0-36.5); MEAN CORPUSCULAR VOLUME 87.6 fl (80.0-96.0); RED CELL DISTRIBUTION WIDTH 14.9 % (11.5-14.5); WHITE BLOOD COUNT 7.6 K/mm3 (4.0-10.0)
[2016-09-05 19:14] LABS: MAGNESIUM LEVEL 1.7 MG/DL (1.8-2.4); PHOSPHORUS LEVEL 1.9 MG/DL (2.5-4.9)
[2016-09-05 19:15] LABS: ALBUMIN 1.6 GM/DL (3.2-5.2); ALBUMIN/GLOBULIN RATIO 0.84 (1.00-1.93); ALKALINE PHOSPHATASE 34 U/L (45-117); ALT/SGPT 10 U/L (12-78); ANION GAP 8 MEQ/L (8-16); AST/SGOT 17 U/L (15-37); BILIRUBIN,TOTAL 1.1 MG/DL (0.2-1.0); BLOOD UREA NITROGEN 13 MG/DL (7-18); CALCIUM LEVEL 5.5 MG/DL (8.8-10.2); CARBON DIOXIDE LEVEL 22 MEQ/L (21-32); CHLORIDE LEVEL 101 MEQ/L (98-107); CREATININE FOR GFR 0.53 MG/DL (0.70-1.30); GLOMERULAR FILTRATION RATE > 60.0 (>49); GLUCOSE, FASTING 152 MG/DL (80-110); POTASSIUM SERUM 3.6 MEQ/L (3.5-5.1); SODIUM LEVEL 131 MEQ/L (136-145); TOTAL PROTEIN 3.5 GM/DL (6.4-8.2)
[2016-09-05 19:16] LABS: PLATELET COUNT, AUTOMATED 90 k/mm3 (150-450)
[2016-09-05 19:29] LABS: BANDS 17 % (< 11); BURR CELLS 1+; DOHLE BODIES 1+; TOXIC GRANULATION 1+
[2016-09-05 19:30] LABS: TOXIC VACUOLATION 1+
--- NOTE | 2016-09-05 19:46 | ECGEPIP ---
Stationary ECG Study [facility] Test Date: 2016-09-05 Pat Name: Kelli BANKS Department: Room: T0212-94 Gender: M Online Marketing Coordinator: DARA : 1950 Requested By: TREVOR Brooks Order Number: [id number] Reading MD: Floyd Monahan Measurements Intervals [place] Rate: 142 P: 249 MD: 108 QRS: 11 QRSD: 104 T: 0 QT: 217 QTc: 334 Interpretive Statements Atrial tachycardia versus junctional tachycardia. NONSPECIFIC ST & T-WAVE ABNORMALITY ABNORMAL RHYTHM ECG Electronically Signed On 09-05-2016 19:46:31 EDT by Floyd Monahan
[2016-09-05] MEDS: LATANOPROST 0.005% OPHTH SOLN 2.5 ML OU SCH (21:00)
--- NOTE | 2016-09-05 21:29 | CCN ---
DATE: 09/04/2016 START TIME: 21:53. STOP TIME: 22:39 I attended SHERRIE Flores in the recovery room immediately upon his arrival from the operating room. Spoke at length with Dr. Reynolds from anesthesia and Dr. Ackerman from general surgery. Chart has been reviewed. In essence, this is a 65-year-old gentleman registered at [facility] with longstanding seizures disorder. She had a previous colostomy. He has underlying benign prostatic hypertrophy (BPH). He was admitted to the hospital with a small bowel obstruction. He did have some difficulties with atrial fibrillation with rapid ventricular response. Today had worsening mental status and went to the operating room. He was found to have an incarcerated internal hernia with ischemic bowel. He had developed what appeared to be early disseminated intravascular coagulation intraoperatively with diffuse oozing, but once the ischemic bowel was resected, that seemed to be improve. He did have some difficulties with episode of hypotension that also improved after resection of his ischemic segment. Intraoperatively, received 4 liters of Crystalloid, 2 units of packed red blood cells. He was on phenylephrine initially. This was weaned off in the recovery room. Ventilator settings changed by myself immediately after he arrived in the operating room. Blood gas done at 2215 hours showed a pH of 7.36, pCO2 of 38.2 and a pO2 97.1, saturating 99.5%. On PRVC, rate of 15, tidal volume 400, PEEP of 5, FiO2 of 100%. He has a CVB in place, but measurement able to be made yet. He does have an A-line in place. As stated above, phenylephrine weaned off. Low-dose Levophed added. He was receiving Crystalloid in the form of lactated Ringers at 200 mL an hour apparently. Blood pressure now 138 systolic. Heart rate varies from 120 to 140 in what appears to be currently a sinus mechanism. The remainder of his exam shows him to be sedate, but starting to arise from anesthesia. Membranes are mildly dry. Trachea is in the midline. There is a right IJ line in place. Oral endotracheal tube and nasogastric tube are noted. No obvious jugular venous distension (JVD). Chest shows symmetric expansion. No wheeze or rhonchi. Tactile fremitus is palpable. Cardiac exam was markedly tachycardiac. Peripheral pulses markedly diminished. He is currently cool. His temperature is 96.3 degrees. Abdomen shows his dressings and drains in place. Abdomen is quiet. Extremities do show mottling of the knees. Peripheral pulses markedly diminished. Neurologically, he is sedated, but is starting to move extremities as he is arousing from anesthesia. Other laboratories done postoperatively show a white blood cell count of 2.2, hepatitis B 12.5, platelet count 138,000. No differential available. Repeat electrolytes were done postoperative, but are pending. Chest x-ray done postop shows the endotracheal tube and central venous pressure (CVP) line to be good position. No acute findings. Most pressing problems requiring my immediate presence at the bedside are respiratory failure, hypothermia postoperative, ischemic bowel, now status post resection, known history of seizure disorder, intermittent atrial fibrillation with rapid ventricular response. At this point, we need to assure adequate volume resuscitation. His acid base status appears reasonable. He is beginning to make urine. We need to get him warmed up as well. Empiric broad-spectrum antimicrobials have been added by general surgery. He has been changed from phenylephrine to Levophed. My hope is that we can continue to wean this. He has shown improvements in his level of tachycardia in the recovery room, just with increased IV fluids and weaning vasopressors. We do plan on leaving him intubated overnight at the minimum. We will continue his IV fluids. Ulcer and deep vein thrombosis (DVT) prophylaxis has been ordered by general surgery. He is to continue his seizure medications. We will use low-dose propofol and as needed Versed for sedation. Pain medication per general surgery. At this point, he is critically ill. I left the bedside at 22:39 hours. 46 minutes of critical care time was delivered at the bedside, not including procedures. EDSON
[2016-09-05] MEDS ORDERED: PREVNAR 13 VACCINE SYRINGE (CPT CODE:90670) IM SCH (21:58)
[2016-09-05 22:44] LABS: INR 1.84
[2016-09-06] VITALS (35 sets, daily range): BP systolic 82–114; BP diastolic 51–68
[2016-09-06] MEDS: VANCOMYCIN HCL 1,000 MG, VIAL MATE ADAPTER 1 EACH in D5W 250 ML IV SCH ×4 (00:22→22:49)
[2016-09-06] MEDS: PROPOFOL 1,000 MG in APPROPRIATE DILUENT 1 EA IV SCH ×5 (02:19→21:24)
[2016-09-06] MEDS: PIPERACILLIN/TAZOBACTAM SOD 3.375 GM in D5W MINI-BAG PLUS 50 ML IV SCH ×3 (02:19→18:25)
[2016-09-06] MEDS: D5W/LR 1,000 ML IV SCH ×3 (03:25→15:04)
[2016-09-06 05:34] LABS: ABG BASE EXCESS -2.5 (-2.0-2.0); ABG HCO3 20.3 MEQ/L (22.0-26.0); ABG PARTIAL PRESSURE CO2 28.6 mmHg (35.0-45.0); ABG PARTIAL PRESSURE O2 76.1 mmHg (75.0-100.0); ABG STANDARD HCO3 22.3 MEQ/L (22.0-26.0); ABG TOTAL CO2 21.1 MEQ/L (23.0-31.0); ABG pH (ARTERIAL) 7.468 UNITS (7.350-7.450)
[2016-09-06] MEDS: HEPARIN SOD (PORCINE) 5000 UNITS/ML VIAL SC SCH ×3 (05:39→21:39)
[2016-09-06 05:45] LABS: DIFF SLIDE NUMBER 35; MEAN CORPUSCULAR HEMOGLOBIN 30.5 pg (27.0-33.0); MEAN CORPUSCULAR HGB CONC 34.6 g/dl (32.0-36.5); MEAN CORPUSCULAR VOLUME 88.1 fl (80.0-96.0); RED CELL DISTRIBUTION WIDTH 14.5 % (11.5-14.5); WHITE BLOOD COUNT 9.6 K/mm3 (4.0-10.0)
[2016-09-06 05:48] LABS: PLATELET COUNT, AUTOMATED 81 k/mm3 (150-450)
[2016-09-06] MEDS ORDERED: ALENDRONATE 70 MG TABLET (FOSAMAX) PO SCH ×2 (06:00→09:00)
[2016-09-06 06:07] LABS: ALBUMIN 1.6 GM/DL (3.2-5.2); ALKALINE PHOSPHATASE 46 U/L (45-117); ALT/SGPT 13 U/L (12-78); ANION GAP 9 MEQ/L (8-16); AST/SGOT 13 U/L (15-37); BILIRUBIN,TOTAL 1.5 MG/DL (0.2-1.0); BLOOD UREA NITROGEN 14 MG/DL (7-18); CALCIUM LEVEL 5.8 MG/DL (8.8-10.2); CARBON DIOXIDE LEVEL 23 MEQ/L (21-32); CHLORIDE LEVEL 99 MEQ/L (98-107); CHOLESTEROL LEVEL < 50 MG/DL (< 200); CREATININE FOR GFR 0.51 MG/DL (0.70-1.30); GLOMERULAR FILTRATION RATE > 60.0 (>49); GLUCOSE, FASTING 138 MG/DL (80-110); MAGNESIUM LEVEL 1.5 MG/DL (1.8-2.4); PHOSPHORUS LEVEL 1.5 MG/DL (2.5-4.9); POTASSIUM SERUM 3.4 MEQ/L (3.5-5.1); SODIUM LEVEL 131 MEQ/L (136-145); TOTAL PROTEIN 3.6 GM/DL (6.4-8.2); TRIGLYCERIDES LEVEL 175 MG/DL (<150)
[2016-09-06] MEDS: VASOPRESSIN INJ 20 UNITS in NS 500 ML IV SCH ×3 (06:08→21:39)
[2016-09-06 06:35] LABS: BANDS 15 % (< 11)
[2016-09-06 06:36] LABS: BURR CELLS 1+; DOHLE BODIES 1+; TOXIC VACUOLATION 1+
[2016-09-06 06:38] LABS: ANISOCYTOSIS 1+
--- NOTE | 2016-09-06 07:40 | REP ---
Clinical: Respiratory failure. Comparison: 09/05/2016. Findings: Endotracheal tube is approximately 2.5 cm above the ernesto. Nasogastric tube courses below left hemidiaphragm. Right IJ line with tip in the SVC. Mediastinum and cardiac silhouette are stable. Mid to lower lobe opacities (right greater left) are again noted and similar to prior examination. Findings suggest underlying moderate pleural effusions and consolidation/atelectasis. Impression: Continued moderate to large pleural effusions and underlying infiltrates (right greater than left). Signed by Tom Heath MD 09/06/2016 07:32 A
[2016-09-06] MEDS ORDERED: CALCIUM GLUCONATE 1,000 MG in D5W MINI-BAG PLUS 100 ML IV ONE (08:00)
[2016-09-06] MEDS ORDERED: NS 1,000 ML IV ONE (09:00)
[2016-09-06] MEDS ORDERED: MAG SULF 1GM/100ML (MAG RUN) 1 GM in APPROPRIATE DILUENT 1 EA IV ONE ×2 (09:00→16:00)
[2016-09-06] MEDS: PANTOPRAZOLE 40MG INJ (PROTONIX) (C9113) IV SCH (09:10)
[2016-09-06] MEDS: levETIRAcetam INJection 500 MG in D5W MINI-BAG PLUS 100 ML IV SCH ×2 (09:14→21:09)
[2016-09-06] MEDS: LACOSAMIDE 10MG/ML 20ML VIAL (VIMPAT) (C9254) IV SCH ×2 (09:16→22:13)
[2016-09-06] MEDS: VALPROIC ACID SYRUP 250 MG/5 ML UDC PO SCH ×3 (09:21→21:09)
[2016-09-06] MEDS: NEUTRA-PHOS 1.25 GM PACKET PO SCH ×2 (09:21→21:09)
[2016-09-06] MEDS: SENOKOT S TAB PO SCH ×2 (09:21→21:09)
[2016-09-06] MEDS: MODAFINIL 200MG TABLET PO SCH (09:28)
--- NOTE | 2016-09-06 10:12 | CCN ---
DATE OF VISIT: 09/06/2016 START TIME: 829 STOP TIME: 911 I again attended Mr. Flores here in the intensive care unit. He remains intubated, sedated, and mechanically ventilated. I had a long discussion this morning with Dr. Ackerman from general surgery concerning his status. He remains exquisitely volume sensitive. With more aggressive volume resuscitation, he has been able to be again weaned from vasopressors, and his heart rate is back under 100 with a sinus mechanism. He is making much better urine. Maximum temperature (Tmax) overnight 98.6, blood pressure as low as 82 is now 114 systolic. Heart rate currently in the 90s. Respiratory rate anywhere from 17-26. Chest x-ray again shows a poor inspiratory effort. A question of increasing edema. Other laboratories show a sodium of 131, potassium of 3.4, chloride 99, CO2 23, BUN 14, creatinine 0.51, glucose 138, lactic acid 2.6, calcium remains low at 5.8, phosphorous 1.5, magnesium 1.5, bilirubin also 1.5. White blood cell count 9.6, hemoglobin 10.3, platelet count 81,000, 77% segmented neutrophils, 15% bands. INR yesterday 1.84. Is receiving fresh frozen plasma (FFP). Blood gas done on a PRVC rate of 15, tidal volume 400, PEEP of 5, FiO2 of 30%, has pH 7.468, PCO2 of 28.6, PO2 of 76, saturation of 96.5%. On examination, he is sedate but does interact when sedation lightened. Pupils do react. Trachea is in the midline. Chest shows him to be clear anteriorly. Expansion symmetric. There are some basilar crackles. No convincing wheeze or egophony. Cardiac examination is regular. Peripheral pulses are diminished but palpable. There is diffuse edema. Abdomen shows his dressings to be intact. Question of some faint bowel sounds. No obvious organomegaly or masses. Extremities without cyanosis or clubbing. Neurologically, he is sedate. Intake and output (I and O) for the 24 hours ending at midnight: 7085 mL in with 2300 mL out. Medication list has been reviewed. Antimicrobials managed though primary service and the hospitalists. The most pressing problems requiring my presence at the bedside: respiratory alkalosis, respiratory failure requiring mechanical ventilatory support, ischemic small bowel status post resection, seizure disorder, mental disability, coagulopathy. At this point, we can leave his ventilator disabled, but I do not believe he can achieve extubation, given his continued need for aggressive intravenous (IV) fluids. His lactate is only mildly elevated. He is on broad-spectrum antimicrobials. He is being monitored closely by general surgery, who is his primary service. I will give him some FFP today. We will begin total parenteral nutrition (TPN), as he clearly needs nutritional support. Ulcer and deep vein thrombosis (DVT) prophylaxis are in place. Overall, he remains quite critically ill. I left the bedside at 0912 hours. 42 minutes of critical care time was delivered at the bedside, not including procedures.
[2016-09-06] MEDS ORDERED: POTASSIUM PHOSPHATE INJ 30 MMOL in D5W 500 ML IV ONE (11:00)
[2016-09-06 12:59] LABS: DIFF SLIDE NUMBER 84; MEAN CORPUSCULAR HEMOGLOBIN 29.8 pg (27.0-33.0); MEAN CORPUSCULAR HGB CONC 33.9 g/dl (32.0-36.5); MEAN CORPUSCULAR VOLUME 87.9 fl (80.0-96.0); RED CELL DISTRIBUTION WIDTH 14.6 % (11.5-14.5); WHITE BLOOD COUNT 8.1 K/mm3 (4.0-10.0)
[2016-09-06 13:02] LABS: ALBUMIN 1.5 GM/DL (3.2-5.2); ALBUMIN/GLOBULIN RATIO 0.75 (1.00-1.93); ALKALINE PHOSPHATASE 46 U/L (45-117); ALT/SGPT 14 U/L (12-78); ANION GAP 10 MEQ/L (8-16); AST/SGOT 14 U/L (15-37); BILIRUBIN,TOTAL 1.2 MG/DL (0.2-1.0); BLOOD UREA NITROGEN 15 MG/DL (7-18); CALCIUM LEVEL 5.9 MG/DL (8.8-10.2); CARBON DIOXIDE LEVEL 23 MEQ/L (21-32); CHLORIDE LEVEL 99 MEQ/L (98-107); CHOLESTEROL LEVEL 63 MG/DL (< 200); CREATININE FOR GFR 0.54 MG/DL (0.70-1.30); GLOMERULAR FILTRATION RATE > 60.0 (>49); GLUCOSE, FASTING 157 MG/DL (80-110); MAGNESIUM LEVEL 1.9 MG/DL (1.8-2.4); PHOSPHORUS LEVEL 2.2 MG/DL (2.5-4.9); POTASSIUM SERUM 3.6 MEQ/L (3.5-5.1); SODIUM LEVEL 132 MEQ/L (136-145); TOTAL PROTEIN 3.5 GM/DL (6.4-8.2); TRIGLYCERIDES LEVEL 239 MG/DL (<150)
[2016-09-06 13:09] LABS: PLATELET COUNT, AUTOMATED 68 k/mm3 (150-450)
--- NOTE | 2016-09-06 13:15 | IPNPDOC ---
Text Note Date of Service The patient was seen on 09/06/16. NOTE Subjective: Patient is a 65 year old male from [facility] with a PMHx of Seizures, Osteoporosis, BPH and Sigmoidectomy - s/p Colostomy (2/2 Obstruction) who presented to the ER on 09/03/2016 after there was decreased output from the colostomy. Patient was found to have nausea and vomiting. He received a CT abdomen/pelvis which revealed a SBO (partial vs. complete). He received an NGT and was started on Unasyn. On the morning of 09/04/2016 patient had gone into a tachycardic episode and the hospitalist service was consulted. Patient was seen and examined at the bedside. Remains intubate and sedated at this time. Yesterday (09/05/2016) patient had a tachycardic episode with HR into 170s. His CVP was checked at that time and was found to be 19. Cardiology / Critial care was consulted and after discussion he received 2 units or PRBC and his HR improved without additional intervention. Objective: Vitals (See below) General: Lying in bed, intubated and sedated HEENT: NC, AT, NGT in place, ETT in place CVS: Tachycardic, regular rhythm, +S1S2 Lungs: Fair air entry b/l, -w/r/r Abdomen: Soft, Mildly distended, Midline incision with dressing, Hypoactive BS Extremities: +PPx4, - Edema, - Calf tenderness Assessment and plan: 1. Hypotensive / Tachycardic - likely 2/2 sepsis - likely 2/2 intra-abdominal source - small bowel ischemia, possibly 2/2 healthcare associated pneumonia - Physical reveals L upper / lower quadrant abdominal pain; + Fever of 100.2F - EKG reviewed; appears regular, P waves present, sinus tachycardia - CT chest 09/04: moderate R & L LL consolidations + pleural effusions, L 8-11th rib fracture - CT abdomen / pelvis 09/04: high grade SBO, 1.7 cm L renal cyst - Blood cultures negative at 48 hours - Dr. Ackerman (09/04/2016) performed exploratory laparotomy and removed section of small bowel (re: ischemia) - c/w IV fluid hydration; will adjust based on CVP - c/w Broad spectrum antibiotics (Vancomycin and Zosyn - Day #3); s/p Unasyn - c/w Pressor support (Vasopressin) - will taper down as tolerated; s/p Levophed 2. Ventilator dependent respiratory failure - likely 2/2 hemodynamic instability - 2/2 sepsis - ABG this AM appears hyperventilated - Managed by Dr. Spicer in pulmonary / critical care 3. s/p SBO and Small bowel ischemia - s/p resection - c/w IV fluid hydration to improve HR - c/w NGT - s/p surgical intervention 4. Normocytic anemia - Hg has been trending down since surgery - s/p 4 unit PRBC - s/p 4 units FFP - Received 2 units yesterday when he was tachycardic - Hg post transfusion was 10.3 - Will repeat H&H at 12PM 5. Hyponatremia - likely 2/2 hypovolemic isotonic hyponatremia - c/w fluid resuscitation 6. Hypokalemia - will replete 7. Hypophosphatemia - will replete 8. Hypomagnesemia - will replete 9. Seizure disorder - converted some medications to IV route; given SBO and history of nausea / vomiting - c/w seizure precautions 10. Osteoporosis 11. GI Prophylaxis - c/w Protonix 12. DVT prophylaxis - c/w Heparin VS,Fishbone, I+O VS, Fishbone, I+O Laboratory Tests 09/05/16 13:30 09/05/16 15:39 09/05/16 18:32 Red Blood Count 2.88 L, Mean Corpuscular Volume 87.6, Mean Corpuscular Hemoglobin 30.1, Mean Corpuscular Hemoglobin Concent 34.4, Red Cell Distribution Width 14.9 H, Calcium Level 5.5 *L, Aspartate Amino Transf (AST/ SGOT) 17, Alanine Aminotransferase (ALT/SGPT) 10 L, Alkaline Phosphatase 34 L, Total Bilirubin 1.1 H, Total Protein 3.5 L, Albumin 1.6 L 09/06/16 05:13 Red Blood Count 3.37 L, Mean Corpuscular Volume 88.1, Mean Corpuscular Hemoglobin 30.5, Mean Corpuscular Hemoglobin Concent 34.6, Red Cell Distribution Width 14.5, Calcium Level 5.8 *L, Aspartate Amino Transf (AST/SGOT ) 13 L, Alanine Aminotransferase (ALT/SGPT) 13, Alkaline Phosphatase 46, Total Bilirubin 1.5 H, Total Protein 3.6 L, Albumin 1.6 L, Phosphorus Level 1.5 #L, Lactate Dehydrogenase 148, Total Creatine Kinase 53, Triglycerides Level 175 H, Cholesterol Level < 50 09/06/16 12:09 Red Blood Count 3.00 L, Mean Corpuscular Volume 87.9, Mean Corpuscular Hemoglobin 29.8, Mean Corpuscular Hemoglobin Concent 33.9, Red Cell Distribution Width 14.6 H Vital Signs Date Time Temp Pulse Resp B/P (MAP) Pulse Ox O2 Delivery O2 Flow Rate FiO2 09/06/16 11:35 97.8 93 20 105/59 93 Ventilator 30 09/04/16 14:01 2.0 I&O- Last 24 Hours up to 6 AM 09/06/16 05:59 Intake Total 7085 ml Output Total 2485 ml Balance 4600 ml CONNOR JONES MD September 06, 2016 13:15
[2016-09-06 13:20] LABS: ANISOCYTOSIS 1+; BANDS 8 % (< 11); BURR CELLS 1+; DOHLE BODIES 1+
[2016-09-06] MEDS: CALCIUM GLUCONATE 1,000 MG in D5W MINI-BAG PLUS 100 ML IV SCH ×2 (14:47→15:56)
--- NOTE | 2016-09-06 16:36 | ECGEPIP ---
Stationary ECG Study [facility] Test Date: 2016-09-05 Pat Name: Kelli BANKS Department[facility] Room: [place] [address] Gender: M [employer]: : 1950 Requested By: CONNOR JONES Order Number: [id number] Reading MD: Forest Phillip Measurements Intervals [place] Rate: 165 P: AK: 0 QRS: 11 QRSD: 94 T: 0 QT: 194 QTc: 322 Interpretive Statements NARROW COMPLEX TACHYCARDIA: ATRIAL FLUTTER VERSUS JUNCTIONAL TACHYCARDIA VS SUPRAVENTRICULAR TACHYCARDIA LOW QRS VOLTAGE IN EXTREMITY LEADS NONSPECIFIC ST-T ABNORMALITY LAST TRACING ON 09/05/2016 AT 0:09:33, HEART RATE IS NOW FASTER Electronically Signed On 09-06-2016 16:36:30 EDT by Forest Phillip
[2016-09-06] MEDS ORDERED: POTASSIUM PHOSPHATE INJ 15 MMOL in D5W 250 ML IV ONE (17:00)
[2016-09-06] MEDS ORDERED: SODIUM ACETATE IV SCH ×8 (18:00)
[2016-09-06] MEDS ORDERED: [UNRECOGNIZED DRUG - OTHER] IV SCH ×8 (18:00)
[2016-09-06] MEDS ORDERED: FAT EMULSION IV 20% 500 ML IV SCH (18:00)
[2016-09-06] MEDS ORDERED: SODIUM CHLORIDE IV SCH ×8 (18:00)
[2016-09-06 18:23] LABS: ALBUMIN 1.6 GM/DL (3.2-5.2); ALKALINE PHOSPHATASE 56 U/L (45-117); ALT/SGPT 16 U/L (12-78); ANION GAP 8 MEQ/L (8-16); AST/SGOT 15 U/L (15-37); BILIRUBIN,TOTAL 1.1 MG/DL (0.2-1.0); BLOOD UREA NITROGEN 15 MG/DL (7-18); CALCIUM LEVEL 6.5 MG/DL (8.8-10.2); CARBON DIOXIDE LEVEL 25 MEQ/L (21-32); CHLORIDE LEVEL 97 MEQ/L (98-107); CHOLESTEROL LEVEL 64 MG/DL (< 200); CREATININE FOR GFR 0.45 MG/DL (0.70-1.30); GLOMERULAR FILTRATION RATE > 60.0 (>49); GLUCOSE, FASTING 134 MG/DL (80-110); MAGNESIUM LEVEL 2.1 MG/DL (1.8-2.4); POTASSIUM SERUM 3.5 MEQ/L (3.5-5.1); SODIUM LEVEL 130 MEQ/L (136-145); TOTAL PROTEIN 3.9 GM/DL (6.4-8.2); TRIGLYCERIDES LEVEL 232 MG/DL (<150)
[2016-09-06] MEDS: HumaLOG INSULIN (NovoLOG) PER UNIT SC SCH (18:35)
[2016-09-06 18:36] LABS: DIFF SLIDE NUMBER 127; MEAN CORPUSCULAR HEMOGLOBIN 30.5 pg (27.0-33.0); MEAN CORPUSCULAR HGB CONC 34.4 g/dl (32.0-36.5); MEAN CORPUSCULAR VOLUME 88.7 fl (80.0-96.0); RED CELL DISTRIBUTION WIDTH 14.7 % (11.5-14.5)
[2016-09-06 19:21] LABS: PLATELET COUNT, AUTOMATED 65 k/mm3 (150-450)
--- NOTE | 2016-09-06 19:32 | PHACANCOPD ---
PHARMACY VANCOMYCIN DOSING Pt Demographics Demographics Patient Age:65 , Weight:84.200 , Gender: male Adjusted Body Weight Date: 09/04/16, Adjusted Body Weight: Kg Events Past 24 Hours Events Past 24 Hours: NO: Dialysis, Diuretic Therapy, Change in CrCl, Fever, Elevation in WBC, Pending Diagnostics, Pending Procedures, Other Vancomycin Vancomycin indication: SEPSIS Vancomycin Target Ranges: 15-20 mcg/ml Vancomycin Load Y/N: Yes Load Dose Date Time Vancomycin Load Dose: 1750mg Date: 09/04/16 Time: 0800 Vancomycin Dose Date: 09/06/16. Current Vancomycin Dose: [1g IV Q6H] Intermittent Dosing?: No Labs Labs Item Value Date Time White Blood Count 8.0 K/mm3 09/06/16 1750 Creatinine 0.54 MG/DL L 09/06/16 1209 Creatinine 0.45 MG/DL L 09/06/16 1750 Vancomycin Level Trough 11.7 UG/ML 09/06/16 1500 Vital Signs Label Value Date Time Patient Temperature 99.1 degrees F 09/06/16 1832 Temperature Source Temporal 09/06/16 1832 Micro Microbiology 09/04/16 Blood Culture - Preliminary, Resulted No Growth after 48 hours. All Specime... 09/04/16 Blood Culture - Preliminary, Resulted No Growth after 48 hours. All Specime... Creatinine Clearance Date:09/04/16. Estimated Creatinine Clearance: [>100ml/min]. Pending Labs Vancomycin trough scheduled 09/05/16 @0700, prior to the 4th dose Assessment and Plan Maintaining Current Dose?: No Reason for dose change: Trough too low Pharmacist Note Pharmacist Note Date: 09/04/16. Pharmacist note: Trough of 11.7 is below target range. Have increased dose to 1000mg q6h with a trough ordered for - @0800. Will continue to monitor and make adjustments as needed. JULIETH LACEY PHARMACY September 06, 2016 19:32
[2016-09-06 19:49] LABS: BANDS 1 % (< 11)
[2016-09-06] MEDS: MIDAZOLAM INJ 2 MG/2 ML VIAL (J2250) IV PRN ×2 (19:51→21:12)
[2016-09-06] MEDS: MORPHINE 2 MG/ML 1ML SYRINGE IV PRN (19:52)
[2016-09-06 20:16] LABS: BURR CELLS 2+
[2016-09-06 20:17] LABS: ANISOCYTOSIS 1+; POIKILOCYTOSIS 1+
[2016-09-06 20:23] LABS: DOHLE BODIES 1+; TOXIC GRANULATION 1+
[2016-09-06] MEDS: NOREPINEPHRINE BITARTRATE 8 MG in D5W 500 ML IV SCH (21:00)
[2016-09-06] MEDS: oxyBUTYnin 5 MG TAB PO SCH (21:09)
[2016-09-06] MEDS: TAMSULOSIN 0.4 MG CAP PO SCH (21:09)
[2016-09-06 21:12] LABS: INR 1.37
[2016-09-06] MEDS: LATANOPROST 0.005% OPHTH SOLN 2.5 ML OU SCH (21:39)
[2016-09-07] VITALS (37 sets, daily range): BP systolic 87–142; BP diastolic 51–69
[2016-09-07] MEDS: HumaLOG INSULIN (NovoLOG) PER UNIT SC SCH ×3 (00:40→12:21)
[2016-09-07] MEDS: PIPERACILLIN/TAZOBACTAM SOD 3.375 GM in D5W MINI-BAG PLUS 50 ML IV SCH ×3 (01:21→17:55)
[2016-09-07] MEDS: D5W/LR 1,000 ML IV SCH (01:22)
[2016-09-07] MEDS: PROPOFOL 1,000 MG in APPROPRIATE DILUENT 1 EA IV SCH ×5 (02:58→21:35)
[2016-09-07] MEDS: VANCOMYCIN HCL 1,000 MG, VIAL MATE ADAPTER 1 EACH in D5W 250 ML IV SCH ×4 (03:07→21:01)
[2016-09-07 04:53] LABS: DIFF SLIDE NUMBER 26; MEAN CORPUSCULAR HEMOGLOBIN 30.8 pg (27.0-33.0); MEAN CORPUSCULAR HGB CONC 34.6 g/dl (32.0-36.5); MEAN CORPUSCULAR VOLUME 88.9 fl (80.0-96.0); RED CELL DISTRIBUTION WIDTH 14.5 % (11.5-14.5); WHITE BLOOD COUNT 6.3 K/mm3 (4.0-10.0)
[2016-09-07 05:00] LABS: INR 1.27
[2016-09-07 05:02] LABS: ABG BASE EXCESS -3.6 (-2.0-2.0); ABG HCO3 21.7 MEQ/L (22.0-26.0); ABG PARTIAL PRESSURE CO2 39.8 mmHg (35.0-45.0); ABG PARTIAL PRESSURE O2 63.6 mmHg (75.0-100.0); ABG STANDARD HCO3 21.4 MEQ/L (22.0-26.0); ABG TOTAL CO2 22.9 MEQ/L (23.0-31.0); ABG pH (ARTERIAL) 7.354 UNITS (7.350-7.450)
[2016-09-07 05:14] LABS: PLATELET COUNT, AUTOMATED 76 k/mm3 (150-450)
[2016-09-07 05:16] LABS: ALBUMIN 1.5 GM/DL (3.2-5.2); ALKALINE PHOSPHATASE 79 U/L (45-117); ALT/SGPT 18 U/L (12-78); ANION GAP 8 MEQ/L (8-16); AST/SGOT 16 U/L (15-37); BILIRUBIN,TOTAL 1.2 MG/DL (0.2-1.0); BLOOD UREA NITROGEN 15 MG/DL (7-18); CALCIUM LEVEL 6.7 MG/DL (8.8-10.2); CARBON DIOXIDE LEVEL 22 MEQ/L (21-32); CHLORIDE LEVEL 99 MEQ/L (98-107); CHOLESTEROL LEVEL 72 MG/DL (< 200); CREATININE FOR GFR 0.49 MG/DL (0.70-1.30); GLOMERULAR FILTRATION RATE > 60.0 (>49); GLUCOSE, FASTING 115 MG/DL (80-110); PHOSPHORUS LEVEL 1.8 MG/DL (2.5-4.9); POTASSIUM SERUM 3.4 MEQ/L (3.5-5.1); SODIUM LEVEL 129 MEQ/L (136-145); TOTAL PROTEIN 4.5 GM/DL (6.4-8.2); TRIGLYCERIDES LEVEL 311 MG/DL (<150)
[2016-09-07 05:19] LABS: BANDS 3 % (< 11)
[2016-09-07 05:20] LABS: ANISOCYTOSIS 1+; DOHLE BODIES 1+; POLYCHROMASIA 1+; TOXIC GRANULATION 1+
[2016-09-07 05:21] LABS: BURR CELLS 2+
[2016-09-07] MEDS: HEPARIN SOD (PORCINE) 5000 UNITS/ML VIAL SC SCH (05:26)
[2016-09-07] MEDS ORDERED: POTASSIUM PHOSPHATE INJ 30 MMOL in D5W 500 ML IV ONE (08:00)
--- NOTE | 2016-09-07 08:09 | REP ---
Clinical: Respiratory failure. Comparison: 09/06/2016. Findings: Trachea appears to be 16 mm from the ernesto. Right IJ line with tip in the SVC/RA. Nasogastric tube courses below left hemidiaphragm. Increasing moderate to significant diffuse bilateral infiltrates (right greater left) consistent with multifocal pneumonia. Layering effusions cannot be excluded. No obvious pneumothorax. Impression: 1. Increasing moderate to significant bilateral infiltrates and possible layering effusions. 2. Endotracheal tube 16 mm from the ernetso. Signed by Tom Heath MD 09/07/2016 08:01 A
[2016-09-07] MEDS: PANTOPRAZOLE 40MG INJ (PROTONIX) (C9113) IV SCH (08:55)
[2016-09-07] MEDS: LACOSAMIDE 10MG/ML 20ML VIAL (VIMPAT) (C9254) IV SCH ×2 (08:56→21:02)
[2016-09-07] MEDS: levETIRAcetam INJection 500 MG in D5W MINI-BAG PLUS 100 ML IV SCH ×2 (08:57→21:01)
[2016-09-07] MEDS: VALPROIC ACID SYRUP 250 MG/5 ML UDC PO SCH ×3 (08:57→21:02)
[2016-09-07] MEDS: NEUTRA-PHOS 1.25 GM PACKET PO SCH ×2 (08:57→21:02)
[2016-09-07] MEDS: SENOKOT S TAB PO SCH ×2 (08:58→21:02)
[2016-09-07] MEDS: MODAFINIL 200MG TABLET PO SCH (08:58)
[2016-09-07] MEDS: MORPHINE 2 MG/ML 1ML SYRINGE IV PRN ×3 (09:52→18:34)
--- NOTE | 2016-09-07 09:57 | CCN ---
DATE OF VISIT: 09/07/2016 START TIME: 849 STOP TIME: 923 I again attended Mr. lFores here in the intensive care unit. He remains intubated, sedated, and mechanically ventilated. He has been able to wean from the vasopressors, both his Levophed and his vasopressin. He is beginning to diurese well on his own. Through the night, however, he had increased FiO2 requirements. He is down between 60% and 80% FiO2. Chest x-ray shows what I believe is diffuse increase in edema. Essentially, an expiratory film. Maximum temperature (Tmax) overnight 99 degrees, heart rate 90 to low 100s with a sinus mechanism, blood pressure between 108 and 130 systolic, again off of vasopressors. He does overbreathe the ventilator. Intake and output (I and O) ending at midnight last night: 8137 mL in with 2670 mL out. This morning, since midnight, he has had a total of 520 mL in with 1380 mL out. Last central venous pressure (CVP) measured at 12. White blood cell count 6.3, hemoglobin 10.8, platelet count is 76,000, 85% segmented neutrophils, 3% bands. Sodium of 129, potassium of 3.4, chloride 99, CO2 22, BUN 15, creatinine 0.49, calcium 6.7, phosphorous 1.8, magnesium 2. Blood gas done this morning on a PRVC rate of 8, tidal volume 400, PEEP of 5, FiO2 of 60%, pH 7.354, PCO2 of 39, PO2 of 63. Adjustments in his electrolytes have been made on the total parenteral nutrition (TPN) ordered by Dr. Ackerman. On examination, he is ill-appearing. He does overbreathe the ventilator. Vital signs as outlined above. Pupils do react. He moves all extremities with stimulation. Membranes are moist. There is some scattered rhonchi today, right greater than left. Expansion is diminished but symmetric. No rubs. No convincing egophony. Cardiac examination is regular. Peripheral pulses are palpable. Diffuse edema noted. Abdomen shows his dressings and drains intact. There may be some faint bowel sounds. Extremities show no cyanosis or clubbing. Neurologically, he does move all extremities. IMPRESSION: The most pressing problems requiring my immediate presence at the bedside: 1. Acute hypoxemic respiratory failure, multifactorial. 2. Increasing edema consistent with his recent septic event. 3. Recent ischemic bowel, status post resection/laparotomy. 4. Learning disability. At this point, I will make some minor ventilator changes. I believe much of his issues are on the basis of edema, and this is, unfortunately, not unexpected. He has been able to be weaned from vasopressors and is beginning to autodiurese. I spoke at length with the hospitalist service this morning. At this point, I am agreeing with his full ulcer and deep venous thrombosis (DVT) prophylaxis, as well as his broad-spectrum antimicrobials. He is on TPN, and orders for that have been written by Dr. Ackerman this morning. We will proceed as outlined above. Further recommendations will be made as new information is available. His prognosis remains guarded. I left the bedside at 0924 hours. 34 minutes of critical care time was delivered at the bedside, not including procedures.
--- NOTE | 2016-09-07 11:35 | IPNPDOC ---
Text Note Date of Service The patient was seen on 09/07/16. NOTE Subjective: Patient is a 65 year old male from [facility] with a PMHx of Seizures, Osteoporosis, BPH and Sigmoidectomy - s/p Colostomy (2/2 Obstruction) who presented to the ER on 09/03/2016 after there was decreased output from the colostomy. Patient was found to have nausea and vomiting. He received a CT abdomen/pelvis which revealed a SBO (partial vs. complete). He received an NGT and was started on Unasyn. On the morning of 09/04/2016 patient had gone into a tachycardic episode and the hospitalist service was consulted. Patient was seen and examined at the bedside. Remains intubate and sedated at this time. Patient is completely off of vasopressors and fluids at this time. His oxygenation requirements have gone up and his overall appearance is consistent with generalized edema. Objective: Vitals (See below) General: Lying in bed, intubated and sedated, Generalized edema HEENT: NC, AT, NGT in place, ETT in place CVS: Tachycardic, regular rhythm, +S1S2 Lungs: Fair air entry b/l, -w/r/r Abdomen: Soft, Mildly distended, Midline incision with dressing, Hypoactive BS Extremities: +PPx4, - Calf tenderness Assessment and plan: 1. s/p Septic shock - likely 2/2 intra-abdominal source - 2/2 small bowel ischemia, possibly 2/2 healthcare associated pneumonia - Physical reveals L upper / lower quadrant abdominal pain; + Fever of 100.2F - EKG reviewed; appears regular, P waves present, sinus tachycardia - CT chest 09/04: moderate R & L LL consolidations + pleural effusions, L 8-11th rib fracture - CT abdomen / pelvis 09/04: high grade SBO, 1.7 cm L renal cyst - Blood cultures negative at 72 hours - Dr. Ackerman (09/04/2016) performed exploratory laparotomy and removed section of small bowel (re: ischemia) - s/p IV fluid hydration and Pressor support (Vasopressin and Levophed) - c/w Broad spectrum antibiotics (Vancomycin and Zosyn - Day #3); s/p Unasyn 2. Ventilator dependent respiratory failure - likely 2/2 hemodynamic instability - 2/2 sepsis and fluid overload - ABG this AM appears hyperventilated - Managed by Dr. Spicer in pulmonary / critical care 3. Diffuse edema and increasing oxygen requirement - likely 2/2 hypervolemia - 2 /2 iatrogenic fluid resuscitation - this is expected as he was given aggressive IV fluids for his septic shock - he continues to produce copious amounts of urine without any diuretics - will continue to monitor his electrolytes and urine output - Repeat CMP, Mg and Phos at 1PM 4. s/p SBO and Small bowel ischemia - s/p resection - c/w IV fluid hydration to improve HR - c/w NGT - s/p surgical intervention 5. Normocytic anemia - likely 2/2 dilutional etiology, less likely 2/2 acute blood loss - Hg has been trending down since surgery, remains stable currently - s/p 5 unit PRBC - s/p 6 units FFP - Repeat CBC at 1PM 6. Hyponatremia - likely 2/2 hypovolemic isotonic hyponatremia - s/p fluid resuscitation - will check serum osmolality - will monitor for now 7. Hypokalemia - will replete 8. Hypophosphatemia - will replete 9. s/p Hypomagnesemia 10. Seizure disorder - converted some medications to IV route; given SBO and history of nausea / vomiting - c/w seizure precautions 11. Osteoporosis 12. GI Prophylaxis - c/w Protonix 13. DVT prophylaxis - c/w Heparin VS,Fishbone, I+O VS, Fishbone, I+O Laboratory Tests 09/06/16 12:09 Red Blood Count 3.00 L, Mean Corpuscular Volume 87.9, Mean Corpuscular Hemoglobin 29.8, Mean Corpuscular Hemoglobin Concent 33.9, Red Cell Distribution Width 14.6 H, Calcium Level 5.9 *L, Phosphorus Level 2.2 #L, Aspartate Amino Transf (AST/SGOT) 14 L, Alanine Aminotransferase (ALT/SGPT) 14, Lactate Dehydrogenase 121, Total Creatine Kinase 41, Alkaline Phosphatase 46, Total Bilirubin 1.2 H, Triglycerides Level 239 H, Cholesterol Level 63, Total Protein 3.5 L, Albumin 1.5 L 09/06/16 17:50 Red Blood Count 2.92 L, Mean Corpuscular Volume 88.7, Mean Corpuscular Hemoglobin 30.5, Mean Corpuscular Hemoglobin Concent 34.4, Red Cell Distribution Width 14.7 H, Calcium Level 6.5 L, Phosphorus Level 2.0 L, Aspartate Amino Transf (AST/SGOT) 15, Alanine Aminotransferase (ALT/SGPT) 16, Lactate Dehydrogenase 120, Total Creatine Kinase 35 L, Alkaline Phosphatase 56, Total Bilirubin 1.1 H, Triglycerides Level 232 H, Cholesterol Level 64, Total Protein 3.9 L, Albumin 1.6 L 09/07/16 04:24 Red Blood Count 3.50 L, Mean Corpuscular Volume 88.9, Mean Corpuscular Hemoglobin 30.8, Mean Corpuscular Hemoglobin Concent 34.6, Red Cell Distribution Width 14.5, Calcium Level 6.7 L, Phosphorus Level 1.8 L, Aspartate Amino Transf (AST/SGOT) 16, Alanine Aminotransferase (ALT/SGPT) 18, Lactate Dehydrogenase 143, Total Creatine Kinase 35 L, Alkaline Phosphatase 79, Total Bilirubin 1.2 H, Triglycerides Level 311 H, Cholesterol Level 72, Total Protein 4.5 L, Albumin 1.5 L Vital Signs Date Time Temp Pulse Resp B/P (MAP) Pulse Ox O2 Delivery O2 Flow Rate FiO2 09/07/16 10:07 110 26 134/91 92 Ventilator 80 09/07/16 08:08 98.4 09/04/16 14:01 2.0 I&O- Last 24 Hours up to 6 AM 09/07/16 05:59 Intake Total 8657.6 ml Output Total 2940 ml Balance 5717.6 ml CONNOR JONES MD September 07, 2016 11:35
[2016-09-07 12:45] LABS: ABG BASE EXCESS -2.6 (-2.0-2.0); ABG HCO3 23.6 MEQ/L (22.0-26.0); ABG PARTIAL PRESSURE CO2 46.2 mmHg (35.0-45.0); ABG PARTIAL PRESSURE O2 53.7 mmHg (75.0-100.0); ABG STANDARD HCO3 22.1 MEQ/L (22.0-26.0); ABG pH (ARTERIAL) 7.326 UNITS (7.350-7.450)
[2016-09-07 12:59] LABS: DIFF SLIDE NUMBER 99; MEAN CORPUSCULAR HEMOGLOBIN 30.5 pg (27.0-33.0); MEAN CORPUSCULAR HGB CONC 34.1 g/dl (32.0-36.5); MEAN CORPUSCULAR VOLUME 89.6 fl (80.0-96.0); RED CELL DISTRIBUTION WIDTH 14.8 % (11.5-14.5); WHITE BLOOD COUNT 7.1 K/mm3 (4.0-10.0)
[2016-09-07] MEDS ORDERED: LIDOCAINE 1% MDV 20ML VIAL As Ordered ONE (13:01)
[2016-09-07 13:17] LABS: ALBUMIN 1.5 GM/DL (3.2-5.2); ALBUMIN/GLOBULIN RATIO 0.58 (1.00-1.93); ALKALINE PHOSPHATASE 89 U/L (45-117); ALT/SGPT 17 U/L (12-78); ANION GAP 8 MEQ/L (8-16); AST/SGOT 14 U/L (15-37); BILIRUBIN,TOTAL 1.3 MG/DL (0.2-1.0); BLOOD UREA NITROGEN 10 MG/DL (7-18); CALCIUM LEVEL 7.1 MG/DL (8.8-10.2); CARBON DIOXIDE LEVEL 26 MEQ/L (21-32); CHLORIDE LEVEL 110 MEQ/L (98-107); CHOLESTEROL LEVEL 99 MG/DL (< 200); CREATININE FOR GFR 0.49 MG/DL (0.70-1.30); GLOMERULAR FILTRATION RATE > 60.0 (>49); GLUCOSE, FASTING 108 MG/DL (80-110); MAGNESIUM LEVEL 2.3 MG/DL (1.8-2.4); PHOSPHORUS LEVEL 2.6 MG/DL (2.5-4.9); POTASSIUM SERUM 3.6 MEQ/L (3.5-5.1); SODIUM LEVEL 144 MEQ/L (136-145); TOTAL PROTEIN 4.1 GM/DL (6.4-8.2); TRIGLYCERIDES LEVEL 308 MG/DL (<150)
[2016-09-07 13:27] LABS: OSMOLALITY SERUM 286 MOSM/KG (280-301)
[2016-09-07] MEDS: MIDAZOLAM INJ 2 MG/2 ML VIAL (J2250) IV PRN (13:27)
--- NOTE | 2016-09-07 13:31 | ECHO ---
DATE OF SERVICE: 09/06/2016 AGE: 65. REFERRING PROVIDER: Kael Enriquez MD. PATIENT LOCATION: Room 3210. REASON FOR THE ECHOCARDIOGRAM: Abnormal electrocardiogram (EKG). 2D MEASUREMENTS: IVS: 1.0 cm LV: 3.4 cm LVPW: 1.0 cm LA: 4.0 cm Aorta: 3.1 cm LV: 2.7 cm DOPPLER MEASUREMENTS: Peak velocity across the aortic valve: 1.1 m/s Mitral E: 0.63 Mitral A: 0.55 with a ratio of 1.14 Maximum tricuspid valve velocity: 2.2 m/s 2D COMMENTS: 1. Normal left ventricular size, wall thickness, and normal global left ventricular systolic function. The estimated left ventricular systolic ejection fraction is 60% to 65%. 2. Borderline enlarged left atrium. Normal right atrium and right ventricle. 3. The atrial septum appeared to be normal without evidence of defect or shunt. 4. Normal aortic root. 5. No pericardial effusion seen. 6. Aortic valve, mitral valve, and tricuspid valve, as well as the pulmonic valve appeared to be normal. The proximal pulmonary artery branches were not well visualized. 7. The inferior vena cava was not visualized. DOPPLER: Only trace mitral regurgitation and trace tricuspid regurgitation detected. The calculated pulmonary artery systolic pressure was normal. Abnormal relaxation pattern was noted across the septal and lateral mitral valve anulus consistent with the pseudo-normal pattern. Left ventricular end- diastolic pressure might be elevated. IMPRESSION; 1. Normal global left ventricular systolic function. There are features of left ventricular diastolic dysfunction. 2. Trace mitral regurgitation. 3. Trace tricuspid regurgitation with a normal calculated pulmonary artery systolic pressure. MTDD
[2016-09-07 13:38] LABS: PLATELET COUNT, AUTOMATED 89 k/mm3 (150-450)
[2016-09-07 13:49] LABS: BANDS 5 % (< 11); DOHLE BODIES 1+; TOXIC GRANULATION 1+; TOXIC VACUOLATION 1+
[2016-09-07 13:51] LABS: BURR CELLS 1+
--- NOTE | 2016-09-07 14:04 | CCN ---
DATE: 09/07/2016 START TIME: 1310 STOP TIME: 1330 I was called to examine Paula Quintero due to progressive difficulties with hypoxemia and increasing FiO2 requirements. Upon my arrival, oxygen saturation 88% on 90% FiO2. Recent arterial blood gas done on those settings showed a pH of 7.326, pCO2 46.2 and a pO2 of 53.7. Some rhonchi were noted on exam. Ventilator change is made with an increase in his PEEP as well as an increase in his rate. Due to the rhonchi on exam and concern over retained secretions, fiberoptic bronchoscopy is planned in an emergent fashion. Please refer to that note for details of procedure. CRITICAL CARE TIME: 1310 to 1330. Additional time at the bedside dictated under bronchoscopy note. MTDD
--- NOTE | 2016-09-07 14:24 | RO ---
DATE OF PROCEDURE: 09/07/2016 PREPROCEDURE DIAGNOSIS: Mucus plugging. POSTPROCEDURE DIAGNOSIS: Mucus plugging. PROCEDURE: Therapeutic bronchoscopy with aspiration of secretions. The procedure was performed emergently due to decreased oxygen saturations. SURGEON: Dr. Terry Spicer FRACTIONATING STILL OPERATOR: ANESTHESIA: Intravenous propofol, which was already running. The patient recently received morphine and was given 2 mg of intravenous (IV) Versed just prior to the procedure. The patient was ventilated with an Ambu bag valve device equipped with PEEP valve during the procedure. OPERATIVE FINDINGS: 1. Endotracheal tube in good position. 2. Mild edema throughout. 3. Focal edema with retained secretions medial left lower lobe. DESCRIPTION OF PROCEDURE: After the patient was identified and appropriate time-out taken and the above anesthesia given, the fiberoptic bronchoscope was easily passed via the existing endotracheal tube. Cetacaine spray was used for lubrication. 1% Xylocaine, 4 mL, was instilled for anesthesia locally prior to passing of the bronchoscope. The endotracheal tube was widely patent. It was in good position, at least 2 cm above the ernesto. The ernesto was sharp and did move. Both mainstem bronchi widely patent. There were scant secretions noted in the right mainstem, easily suctioned clear. In a sequential fashion upper, middle, and lower lobes on the right were identified. Only minimal secretions were identified and were able to be suctioned clear. Attention was then turned to the left. The left mainstem widely patent. The left upper lobe widely patent. Distally, in the left lower lobe, there was some focal edema with some retained secretions. These were able to be suctioned clear, but the medial left base still remained somewhat "fishmouthed." Did open with lavage, however. No other focal abnormalities were identified. The scope was then withdrawn and the procedure terminated. The patient tolerated the procedure well. No immediate complications identified. Oxygen saturation 94% postprocedure.
[2016-09-07] MEDS ORDERED: SLF 3 ML SYR IV PRN (16:30)
[2016-09-07] MEDS ORDERED: FAT EMULSION IV 20% 500 ML IV SCH (18:00)
[2016-09-07] MEDS ORDERED: SODIUM ACETATE IV SCH ×8 (18:00)
[2016-09-07] MEDS ORDERED: [UNRECOGNIZED DRUG - OTHER] IV SCH ×8 (18:00)
[2016-09-07] MEDS ORDERED: SODIUM CHLORIDE IV SCH ×8 (18:00)
--- NOTE | 2016-09-07 19:10 | ECGEPIP ---
Stationary ECG Study [facility] Test Date: 2016-09-06 Pat Name: Kelli BANKS [facility] Room: [place] [address] Gender: M Digital Forensic Analyst: : 1950 Requested By: CONNOR JONES Order Number: [id number] Reading MD: Forest Phillip Measurements Intervals [place] Rate: 141 P: 247 [place]: 123 QRS: 13 QRSD: 108 T: 0 QT: 215 QTc: 330 Interpretive Statements JUNCTIONAL TACHYCARDIA, POSSIBLE ATRIAL FLUTTER NONSPECIFIC ST & T-WAVE ABNORMALITY LOW-VOLTAGE QRS COMPLEXES ABNORMAL RHYTHM ECG WARNING: DATA QUALITY MAY AFFECT INTERPRETATION COMPARED TO THE LAST TRACING ON 09/05/2016 AT 18:44:20, HEART RATE IS NOW SLOWER DONE BY ICU STAFF Electronically Signed On 09-07-2016 19:08:58 EDT by Forest Phillip
[2016-09-07] MEDS: oxyBUTYnin 5 MG TAB PO SCH (20:53)
[2016-09-07] MEDS: LATANOPROST 0.005% OPHTH SOLN 2.5 ML OU SCH (21:01)
[2016-09-07] MEDS: TAMSULOSIN 0.4 MG CAP PO SCH (21:02)
[2016-09-07] MEDS: SODIUM CHLORIDE 0.9% INJ 10 ML SYR IV SCH (21:41)
[2016-09-07] MEDS: SLF 3 ML SYR IV SCH (21:41)
[2016-09-08] VITALS (31 sets, daily range): BP systolic 87–145; BP diastolic 48–67
[2016-09-08] MEDS: PIPERACILLIN/TAZOBACTAM SOD 3.375 GM in D5W MINI-BAG PLUS 50 ML IV SCH ×3 (02:11→17:14)
[2016-09-08] MEDS: PROPOFOL 1,000 MG in APPROPRIATE DILUENT 1 EA IV SCH ×5 (02:12→22:30)
[2016-09-08] MEDS: VANCOMYCIN HCL 1,000 MG, VIAL MATE ADAPTER 1 EACH in D5W 250 ML IV SCH ×4 (03:29→20:46)
[2016-09-08] MEDS: SLF 3 ML SYR IV SCH ×3 (04:51→22:00)
[2016-09-08] MEDS: SODIUM CHLORIDE 0.9% INJ 10 ML SYR IV SCH ×3 (05:02→22:00)
[2016-09-08 05:31] LABS: DIFF SLIDE NUMBER 24; MEAN CORPUSCULAR HEMOGLOBIN 29.7 pg (27.0-33.0); MEAN CORPUSCULAR HGB CONC 32.3 g/dl (32.0-36.5); MEAN CORPUSCULAR VOLUME 91.8 fl (80.0-96.0); RED CELL DISTRIBUTION WIDTH 14.8 % (11.5-14.5); WHITE BLOOD COUNT 9.9 K/mm3 (4.0-10.0)
[2016-09-08 05:32] LABS: PLATELET COUNT, AUTOMATED 92 k/mm3 (150-450)
[2016-09-08 05:48] LABS: ALBUMIN 1.2 GM/DL (3.2-5.2); ALBUMIN/GLOBULIN RATIO 0.52 (1.00-1.93); ALKALINE PHOSPHATASE 99 U/L (45-117); ALT/SGPT 14 U/L (12-78); ANION GAP 6 MEQ/L (8-16); AST/SGOT 13 U/L (15-37); BILIRUBIN,TOTAL 1.4 MG/DL (0.2-1.0); BLOOD UREA NITROGEN 12 MG/DL (7-18); CALCIUM LEVEL 7.5 MG/DL (8.8-10.2); CARBON DIOXIDE LEVEL 26 MEQ/L (21-32); CHLORIDE LEVEL 114 MEQ/L (98-107); CHOLESTEROL LEVEL 101 MG/DL (< 200); CREATININE FOR GFR 0.71 MG/DL (0.70-1.30); GLOMERULAR FILTRATION RATE > 60.0 (>49); GLUCOSE, FASTING 115 MG/DL (80-110); MAGNESIUM LEVEL 2.3 MG/DL (1.8-2.4); PHOSPHORUS LEVEL 2.7 MG/DL (2.5-4.9); POTASSIUM SERUM 3.4 MEQ/L (3.5-5.1); SODIUM LEVEL 146 MEQ/L (136-145); TOTAL PROTEIN 3.5 GM/DL (6.4-8.2); TRIGLYCERIDES LEVEL 386 MG/DL (<150)
[2016-09-08 06:33] LABS: BANDS 2 % (< 11)
[2016-09-08 06:35] LABS: DOHLE BODIES 1+; TOXIC GRANULATION 1+; TOXIC VACUOLATION 1+
[2016-09-08 06:36] LABS: ANISOCYTOSIS 1+
[2016-09-08 06:43] LABS: ABG BASE EXCESS -1.8 (-2.0-2.0); ABG HCO3 23.5 MEQ/L (22.0-26.0); ABG PARTIAL PRESSURE O2 74.3 mmHg (75.0-100.0); ABG STANDARD HCO3 22.9 MEQ/L (22.0-26.0); ABG TOTAL CO2 24.8 MEQ/L (23.0-31.0); ABG pH (ARTERIAL) 7.365 UNITS (7.350-7.450)
--- NOTE | 2016-09-08 08:06 | REP ---
Clinical: Respiratory failure. Comparison: 09/07/2016. Findings: Nasogastric tube courses below left hemidiaphragm. Endotracheal tube approximately 1.8 cm above the ernesto. Right central venous catheter with tip in the SVC. Diffuse bilateral infiltrates are again noted and relatively similar to prior examination although the left upper lobe opacity appears moderately more pronounced. Underlying layering effusions cannot be excluded (left greater than right). Impression: Diffuse bilateral infiltrates with left upper lobe infiltrate moderately increased compared to prior examination. Signed by Tom Heath MD 09/08/2016 07:58 A
[2016-09-08] MEDS: VALPROIC ACID SYRUP 250 MG/5 ML UDC PO SCH ×3 (08:57→20:46)
[2016-09-08] MEDS: KCL 10MEQ IN 100ML SWI (KRUN) 10 MEQ in APPROPRIATE DILUENT 1 EA IV SCH ×4 (08:58→10:38)
[2016-09-08] MEDS: LACOSAMIDE 10MG/ML 20ML VIAL (VIMPAT) (C9254) IV SCH ×2 (08:59→20:46)
[2016-09-08] MEDS: PANTOPRAZOLE 40MG INJ (PROTONIX) (C9113) IV SCH (08:59)
[2016-09-08] MEDS: levETIRAcetam INJection 500 MG in D5W MINI-BAG PLUS 100 ML IV SCH ×2 (08:59→20:46)
[2016-09-08] MEDS: SENOKOT S TAB PO SCH ×2 (09:00→20:45)
[2016-09-08] MEDS: MODAFINIL 200MG TABLET PO SCH (09:06)
--- NOTE | 2016-09-08 10:23 | CCN ---
DATE: 09/08/2016 START TIME: 923 STOP TIME: 955 I again attended Mr. Flores. The patient has been examined and EMR has been reviewed. Chest x-ray this morning shows a varying pattern/migratory pattern of infiltrates or edema. T-max overnight 99.3. Blood pressure 89 to 104 systolic and he remains off of vasopressors. Heart rate in the low 100s with a sinus mechanism. Respiratory rate 17 to 22 without accessory muscle use. Ins and outs yesterday 4017 mL in with 40091 mL out. This was spontaneous diuresis. Since midnight, 1061 mL in with 1310 mL out. White blood cell count 9.9, hemoglobin 10.2 and platelet count 92,000 with 93% segs, 2% bands. Sodium 146, potassium 3.4, chloride 114, CO2 26, BUN 12, creatinine 0.71. Albumin 1.2. Arterial blood gas obtained on a PRVC, tidal volume 460, rate of 15, PEEP 10, and FiO2 of 80% has a pH of 7.365, pCO2 of 42.0 and pAO2 of 74.3. On exam, he is sedate, but does respond to stimuli. Pupils do react. Trachea is in the midline. Chest fairly clear anteriorly. There are only the rarest of rhonchi. There is some dependent basilar crackles. No rubs or egophony. Cardiac exam is regular. Peripheral pulses are palpable. Diffuse edema is unchanged. Abdomen shows dressings and drains intact. Extremities show no cyanosis or clubbing. Neurologically, he is sedate, but does move extremities when stimulated. Chest x-ray is outlined above and shows lines and tubes in good position. His migratory increased interstitial markings/edema as outlined above. The most pressing problems requiring my presence at the bedside are: 1. Hypoxemic respiratory failure, probably multifactorial (edema versus acute respiratory distress syndrome versus infiltrate). 2. Ischemic small bowel status post resection. 3. Known seizure disorder. At this point, we have been able to wean his FiO2. I believe much of this really is driven by edema as his lungs do not have significant high peak airway pressures. He is actually auto diuresing. Electrolytes are reasonable. Nutritional status is being addressed by the primary service. Will proceed as outlined above. Ulcer and deep vein thrombosis (DVT) prophylaxis are in place. I am in agreement with his broad spectrum antimicrobials. Given his difficulties with intermittent tachycardia and his known underlying seizure disorder, I do not believe he is a good candidate to be continued on modafinil and this was discontinued. At this point, however, his status still remains guarded. He remains critically ill. I left the bedside at 0956 hours. 32 minutes of critical care time was spent at bedside, not including procedures.
--- NOTE | 2016-09-08 11:59 | IPNPDOC ---
Text Note Date of Service The patient was seen on 09/08/16. NOTE Subjective: Patient is a 65 year old male from [facility] with a PMHx of Seizures, Osteoporosis, BPH and Sigmoidectomy - s/p Colostomy (2/2 Obstruction) who presented to the ER on 09/03/2016 after there was decreased output from the colostomy. Patient was found to have nausea and vomiting. He received a CT abdomen/pelvis which revealed a SBO (partial vs. complete). He received an NGT and was started on Unasyn. On the morning of 09/04/2016 patient had gone into a tachycardic episode and the hospitalist service was consulted. Patient was seen and examined at the bedside. Remains intubate and sedated at this time. Continues to require supplemental oxygenation. Has made adaquate amounts of urine over last 48 hours. Objective: Vitals (See below) General: Lying in bed, intubated and sedated, Generalized edema HEENT: NC, AT, NGT in place, ETT in place CVS: Tachycardic, regular rhythm, +S1S2 Lungs: Difficult to appreciate bilaterally Abdomen: Soft, Mildly distended, Midline incision with dressing, Hypoactive BS Extremities: +PPx4, - Calf tenderness Assessment and plan: 1. s/p Septic shock - likely 2/2 intra-abdominal source - 2/2 small bowel ischemia, possibly 2/2 healthcare associated pneumonia - Physical reveals L upper / lower quadrant abdominal pain; + Fever of 100.2F - EKG reviewed; appears regular, P waves present, sinus tachycardia - CT chest 09/04: moderate R & L LL consolidations + pleural effusions, L 8-11th rib fracture - CT abdomen / pelvis 09/04: high grade SBO, 1.7 cm L renal cyst - Blood cultures negative at 72 hours - Dr. Ackerman (09/04/2016) performed exploratory laparotomy and removed section of small bowel (re: ischemia) - s/p IV fluid hydration and Pressor support (Vasopressin and Levophed) - c/w Broad spectrum antibiotics (Vancomycin and Zosyn - Day #4); s/p Unasyn 2. Ventilator dependent respiratory failure - likely 2/2 hemodynamic instability - 2/2 sepsis and fluid overload - s/p Bronchoscopy 09/07: findings of secretions and edema - Managed by Dr. Spicer in pulmonary / critical care 3. Diffuse edema and increasing oxygen requirement - likely 2/2 hypervolemia - 2 /2 iatrogenic fluid resuscitation - this is expected as he was given aggressive IV fluids for his septic shock - he continues to produce copious amounts of urine without any diuretics; s/p 10 Liters of urine output - Current volume balance is +7 Liters - will continue to monitor his electrolytes and urine output 4. s/p SBO and Small bowel ischemia - s/p resection - c/w IV fluid hydration to improve HR - c/w NGT - s/p surgical intervention 5. Normocytic anemia - likely 2/2 dilutional etiology, less likely 2/2 acute blood loss - Hg has been trending down since surgery, remains stable currently - s/p 5 unit PRBC - s/p 6 units FFP 6. Thrombocytopenia - likely 2/2 consumptive etiology, less likely 2/2 DIC - no evidence of bleeding events - will monitor for now 7. s/p Hyponatremia - likely 2/2 hypovolemic isotonic hyponatremia 8. Hypokalemia - will replete 9. s/p Hypophosphatemia 10. s/p Hypomagnesemia 11. Seizure disorder - converted some medications to IV route; given SBO and history of nausea / vomiting - c/w seizure precautions 12. Osteoporosis 13. GI Prophylaxis - c/w Protonix 14. DVT prophylaxis - c/w Heparin VS,Fishbone, I+O VS, Fishbone, I+O Laboratory Tests 09/07/16 12:41 Red Blood Count 3.88 L, Mean Corpuscular Volume 89.6, Mean Corpuscular Hemoglobin 30.5, Mean Corpuscular Hemoglobin Concent 34.1, Red Cell Distribution Width 14.8 H, Calcium Level 7.1 L, Phosphorus Level 2.6 #, Aspartate Amino Transf (AST/SGOT) 14 L, Alanine Aminotransferase (ALT/SGPT) 17, Lactate Dehydrogenase 144, Total Creatine Kinase 32 L, Alkaline Phosphatase 89, Total Bilirubin 1.3 H, Triglycerides Level 308 H, Cholesterol Level 99, Total Protein 4.1 L, Albumin 1.5 L 09/08/16 05:04 Red Blood Count 3.44 L, Mean Corpuscular Volume 91.8, Mean Corpuscular Hemoglobin 29.7, Mean Corpuscular Hemoglobin Concent 32.3, Red Cell Distribution Width 14.8 H, Calcium Level 7.5 L, Phosphorus Level 2.7, Aspartate Amino Transf (AST/SGOT) 13 L, Alanine Aminotransferase (ALT/SGPT) 14, Lactate Dehydrogenase 134, Total Creatine Kinase 21 L, Alkaline Phosphatase 99, Total Bilirubin 1.4 H, Triglycerides Level 386 H, Cholesterol Level 101, Total Protein 3.5 L, Albumin 1.2 L Vital Signs Date Time Temp Pulse Resp B/P (MAP) Pulse Ox O2 Delivery O2 Flow Rate FiO2 09/08/16 11:09 109 99/51 09/08/16 10:00 70 09/08/16 06:00 22 95 Ventilator 09/08/16 04:00 98.3 09/04/16 14:01 2.0 I&O- Last 24 Hours up to 6 AM 09/08/16 06:00 Intake Total 4558 ml Output Total 9995 ml Balance -5437 ml CONNOR JONES MD September 08, 2016 11:59
[2016-09-08] MEDS: HEPARIN SOD (PORCINE) 5000 UNITS/ML VIAL SC SCH ×2 (14:59→21:39)
[2016-09-08] MEDS: NYSTATIN 500,000 U/5 ML SUSP UDC SS SCH (17:13)
[2016-09-08] MEDS ORDERED: SODIUM CHLORIDE IV SCH ×10 (18:00)
[2016-09-08] MEDS ORDERED: [UNRECOGNIZED DRUG - OTHER] IV SCH ×10 (18:00)
[2016-09-08] MEDS ORDERED: FAT EMULSION IV 20% 500 ML IV SCH (18:00)
[2016-09-08] MEDS ORDERED: SODIUM ACETATE IV SCH ×10 (18:00)
[2016-09-08] MEDS: TAMSULOSIN 0.4 MG CAP PO SCH ×2 (20:45→20:56)
[2016-09-08] MEDS: LATANOPROST 0.005% OPHTH SOLN 2.5 ML OU SCH (20:46)
[2016-09-08] MEDS: oxyBUTYnin 5 MG TAB PO SCH (20:49)
[2016-09-09] VITALS (30 sets, daily range): BP systolic 94–133; BP diastolic 51–63
[2016-09-09] MEDS: NYSTATIN 500,000 U/5 ML SUSP UDC SS SCH ×4 (00:23→17:41)
[2016-09-09] MEDS: PIPERACILLIN/TAZOBACTAM SOD 3.375 GM in D5W MINI-BAG PLUS 50 ML IV SCH ×3 (01:55→17:41)
[2016-09-09] MEDS: VANCOMYCIN HCL 1,000 MG, VIAL MATE ADAPTER 1 EACH in D5W 250 ML IV SCH ×4 (03:53→21:25)
[2016-09-09] MEDS: SODIUM CHLORIDE 0.9% INJ 10 ML SYR IV SCH ×3 (05:42→21:29)
[2016-09-09] MEDS: MORPHINE 2 MG/ML 1ML SYRINGE IV PRN ×2 (05:43→14:03)
[2016-09-09 05:59] LABS: ABG BASE EXCESS -0.6 (-2.0-2.0); ABG PARTIAL PRESSURE CO2 34.3 mmHg (35.0-45.0); ABG PARTIAL PRESSURE O2 91.8 mmHg (75.0-100.0); ABG TOTAL CO2 24.1 MEQ/L (23.0-31.0); ABG pH (ARTERIAL) 7.445 UNITS (7.350-7.450)
[2016-09-09] MEDS: SLF 3 ML SYR IV SCH ×3 (06:00→21:29)
[2016-09-09] MEDS: HEPARIN SOD (PORCINE) 5000 UNITS/ML VIAL SC SCH ×3 (06:00→21:29)
[2016-09-09 06:01] LABS: MEAN CORPUSCULAR HEMOGLOBIN 30.3 pg (27.0-33.0); MEAN CORPUSCULAR HGB CONC 33.3 g/dl (32.0-36.5); MEAN CORPUSCULAR VOLUME 90.9 fl (80.0-96.0); PLATELET COUNT, AUTOMATED 125 k/mm3 (150-450); RED CELL DISTRIBUTION WIDTH 15.2 % (11.5-14.5); WHITE BLOOD COUNT 14.5 K/mm3 (4.0-10.0)
[2016-09-09 06:29] LABS: BANDS 3 % (< 11); EOSINOPHILS 1 % (0-5)
[2016-09-09 06:30] LABS: ANISOCYTOSIS 1+; DOHLE BODIES 1+; TOXIC GRANULATION 1+
[2016-09-09 06:33] LABS: ALBUMIN 1.1 GM/DL (3.2-5.2); ALBUMIN/GLOBULIN RATIO 0.44 (1.00-1.93); ALKALINE PHOSPHATASE 144 U/L (45-117); ALT/SGPT 14 U/L (12-78); ANION GAP 8 MEQ/L (8-16); AST/SGOT 16 U/L (15-37); BILIRUBIN,TOTAL 1.8 MG/DL (0.2-1.0); BLOOD UREA NITROGEN 19 MG/DL (7-18); CALCIUM LEVEL 7.7 MG/DL (8.8-10.2); CARBON DIOXIDE LEVEL 25 MEQ/L (21-32); CHLORIDE LEVEL 111 MEQ/L (98-107); CHOLESTEROL LEVEL 131 MG/DL (< 200); CREATININE FOR GFR 0.79 MG/DL (0.70-1.30); GLOMERULAR FILTRATION RATE > 60.0 (>49); GLUCOSE, FASTING 103 MG/DL (80-110); MAGNESIUM LEVEL 2.3 MG/DL (1.8-2.4); POTASSIUM SERUM 3.3 MEQ/L (3.5-5.1); SODIUM LEVEL 144 MEQ/L (136-145); TOTAL PROTEIN 3.6 GM/DL (6.4-8.2); TRIGLYCERIDES LEVEL 424 MG/DL (<150)
--- NOTE | 2016-09-09 07:17 | REP ---
Clinical: Respiratory failure. Comparison: 09/08/2016. Findings: Endotracheal tube approximately 2 cm above the ernesto. Nasogastric tube courses below left hemidiaphragm. Right subclavian catheter with tip in the SVC. Visualized portions of the cardiac silhouette appear within normal limits. Diffuse bilateral infiltrates similar to prior examination. No obvious effusion or pneumothorax. Impression: Lines and tubes in satisfactory position. Diffuse bilateral infiltrates. No significant change from prior examination. Signed by Tom Heath MD 09/09/2016 07:09 A
[2016-09-09] MEDS ORDERED: KCL 20MEQ IN 100ML SWI (KRUN) 20 MEQ in APPROPRIATE DILUENT 1 EA IV ONE ×2 (08:00)
[2016-09-09] MEDS ORDERED: FUROSEMIDE 20 MG/2 ML VIAL (J1940) IV ONE (08:30)
[2016-09-09] MEDS: LACOSAMIDE 10MG/ML 20ML VIAL (VIMPAT) (C9254) IV SCH ×2 (08:34→21:00)
[2016-09-09] MEDS: SENOKOT S TAB PO SCH ×2 (08:34→21:26)
[2016-09-09] MEDS: VALPROIC ACID SYRUP 250 MG/5 ML UDC PO SCH ×3 (08:34→21:26)
[2016-09-09] MEDS: PANTOPRAZOLE 40MG INJ (PROTONIX) (C9113) IV SCH (08:35)
[2016-09-09] MEDS: levETIRAcetam INJection 500 MG in D5W MINI-BAG PLUS 100 ML IV SCH ×2 (08:35→21:28)
--- NOTE | 2016-09-09 09:22 | IPN ---
DATE OF SERVICE: 09/09/2016 Per nursing, no acute issues. The patient has had significant edema on the stoma for the past several days and scrotal edema. Central venous pressure (CVP) this morning is 16. The patient is sedated. Does not answer to commands. Does not open his eyes spontaneously. The patient is still on the ventilator 40% FiO2 with trials of weaning. The patient is slightly febrile at 100.8. Chest x-ray 09/09/2016 shows diffuse bilateral infiltrates. No change from prior examination. Vital signs: Maximum temperature (Tmax) 100.8, pulse 96, sinus, respiratory rate 26, blood pressure 115/58, 97% FiO2 of 40%. Generally, the patient is heavily sedated. Nasogastric tube and endotracheal tube in place. Intake and output: Overnight, input 3221, output 2975, positive 246. Current weight is 93.1 kg. Generally, lying in bed, intubated, sedated, with generalized edema. Normocephalic, atraumatic. Nasogastric tube and endotracheal tube (ET) in place. Heart: S1, S2, sinus rhythm. Lungs: Diminished, bilateral crackles at the bases. Abdomen: Soft, slight distention. Midline incision with dressing. Hypoactive bowel sounds. Swollen edematous stoma on the left. Scrotal edema. Extremities: No calf tenderness. Trace edema to 1+ edema. White count 14.5, hemoglobin 10, hematocrit 31, platelet count 125. Sodium 144, potassium 3.3, chloride 111, bicarbonate 25, BUN 19, creatinine 0.79, glucose of 103. MICROBIOLOGY: Sputum culture with Enterobacter, sensitive to Zosyn. Blood culture is negative for 5 days. ASSESSMENT AND PLAN: This is a 65-year-old male from [facility] ([facility] History of seizures, osteoporosis, benign prostatic hypertrophy (BPH), sigmoidectomy, status post colostomy secondary to obstruction, presented to the emergency room (ER) 09/02/2016 due to decreased output via the colostomy, found to have nausea and vomiting and small bowel obstruction. The patient was admitted by surgical services, Dr. Ariel Ackerman. Nasogastric tube was placed. The patient was started on Unasyn. On 09/04/2016, the patient had a tachycardic episode. The hospitalist service was consulted. The patient was intubated on 09/04/2016 due to respiratory failure, hypothermia postoperative with an ischemic bowel, status post resection and intermittent atrial fibrillation (AFib) with rapid ventricular response (RVR). The patient was placed on phenylephrine initially, changed to Levophed, which has been weaned. CURRENT ISSUES: 1. Ischemic incarcerated bowel requiring emergent surgery. 2. Incarcerated internal hernia with ischemic bowel, status post early GIC intraoperatively requiring vasopressor therapy initially with phenylephrine and Levophed with hypothermia postoperatively requiring intubation for acute respiratory failure. The patient is status post resection with interval development of intermittent atrial fibrillation with rapid ventricular response. Management per primary team. The patient is currently off vasopressor therapy. Systolic pressure and mean atrial pressure . Cultures grew out Enterobacter in the sputum, sensitive to Zosyn, which we will continue. Once final sputum culture is available, will discontinue vancomycin. Primary team managing postoperative course. Dr. Ackerman will start nasogastric tube feeding today, per nursing. Total parenteral nutrition (TPN) will be discontinued. Potassium will be replaced. 3. Respiratory failure secondary to severe sepsis and hypothermia postoperatively secondary to incarcerated hernia with ischemic bowel. Per Dr. Spicer, trials of extubation. 4. Atrial fibrillation with rapid ventricular response, currently sinus rhythm. Rate is adequate at 96-98. No rate control medications at this time. 5. History of seizure disorder. On intravenous (IV) levetiracetam and Vimpat. 6. Enterobacter sputum. Currently, on Zosyn. 7. Diffuse edema with hypervolemia, status post aggressive IV fluids for septic shock. The patient remains in positive balance. Therefore, will give Lasix intravenously this morning. 8. Normocytic anemia, dilutional, most likely, status post 5 units of red blood cell (RBC), 6 units of fresh frozen plasma (FFP). 9. Thrombocytopenia, appears to be secondary to DIC. No evidence of active bleeding. 10. Hyponatremia, stable. 11. Hypomagnesemia, resolved. 12. Osteoporosis, chronic. 13. Gastrointestinal (GI) prophylaxis with Protonix. 14. Deep venous thrombosis (DVT) prophylaxis with subcutaneous heparin.
--- NOTE | 2016-09-09 10:08 | CCN ---
DATE OF VISIT: 09/09/2016 START TIME: 815 STOP TIME: 851 I again attended Mr. Flores here in the intensive care unit. He remains intubated, mechanically ventilated. We have been able to minimize his sedation. Maximum temperature (Tmax) overnight 100.8, blood pressure 94-130 systolic, and he remains off of vasopressors, heart rate 90 to the low 100s, respiratory rate generally in the 20s without accessory muscle use. We have been able to wean his FiO2 to 40%. PEEP remains at 10. Chest x-ray shows his areas of edema/infiltrate to be much less dense today Intake and output (I and O) through midnight last night, 3221 mL in with 2975 mL out. The most recent laboratories show a white blood cell count of 14.5, hemoglobin 10.4, platelet count now up to 125,000, 86% segmented neutrophils, 3% bands. Sodium 144, potassium of 3.3, chloride 111, CO2 25, BUN 19, creatinine 0.79, glucose 103, alkaline phosphatase 144, albumin down to 1.1. The most recent arterial blood gas done on a pressure-regulated volume control (PRVC) rate of 15, tidal volume of 460, PEEP of 10, and FiO2 of 40%, has a pH of 7.445, PCO2 of 34.3, and pO2 of 91.8. Sputum grew Enterobacter cloacae, sensitive to the Zosyn that he is on. On examination, he does arouse to stimulus. Pupils do react. Trachea is in the midline. Chest shows some scattered rhonchi today that clear generally with suctioning. Expansion is symmetric. There are fine dependent crackles. No rubs. No convincing egophony. Cardiac examination is generally regular. Peripheral pulses are palpable. Diffuse edema is unchanged. Abdomen shows dressings and drains to be intact. I do believe there are some faint bowel sounds. Extremities show no cyanosis or clubbing. Neurologically, as outlined above. The most pressing problems requiring my presence at the bedside are: 1. Respiratory failure, hypoxemic, multifactorial. 2. Pulmonary edema versus acute respiratory distress syndrome (ARDS) versus infiltrate. 3. Laparotomy and resection. 4. Seizure disorder. 5. Mental disability. At this point, I would continue his current antimicrobials. Sputum did grow an organism, fortunately, sensitive to the antibiotics that he is on. At this point, I would not wean his PEEP any further. Will see how the next 24-48 hours goes in that regard. I see that he has been given a small dose of diuretics. We will monitor this closely, as with an albumin depressed, we may not get the benefit from diuretics that we hope. Trickle feeds have been started by surgery, and we will monitor that. He is on ulcer and deep venous thrombosis (DVT) prophylaxis. Overall, he does remain critically ill. The prognosis remains guarded. I left the bedside at 0852 hours. 36 minutes of critical care time delivered at the bedside, not including procedures.
[2016-09-09] MEDS ORDERED: METOPROLOL 5 MG/5 ML VIAL IV STA (13:37)
[2016-09-09] MEDS ORDERED: ADENOSINE 6MG/2ML INJECTION (J0153) IV STA (13:39)
[2016-09-09] MEDS ORDERED: ADENOSINE 6MG/2ML INJECTION (J0153) IV ONE ×2 (13:43→13:45)
--- NOTE | 2016-09-09 13:51 | IPN ---
DATE: 09/09/2016 This afternoon the patient developed supraventricular tachycardia (SVT), ventricular rate of 179. Blood pressure is well maintained at 143 systolic. Adenosine was given 0.6 mg, additional 0.6 with no significant results and 12 mg of adenosine. If note significant improvement will change to metoprolol 5 mg IV every 5 minutes. If blood pressure permits, up to three doses. If no significant change then will change to Cardizem bolus 20 mg IV and a Cardizem drip at 5 mg per hour until heart rate improves.
[2016-09-09] MEDS: METOPROLOL 5 MG/5 ML VIAL IV SCH ×3 (13:55→14:40)
[2016-09-09] MEDS: PROPOFOL 1,000 MG in APPROPRIATE DILUENT 1 EA IV SCH (16:24)
[2016-09-09] MEDS ORDERED: SODIUM CHLORIDE IV SCH ×8 (18:00)
[2016-09-09] MEDS ORDERED: FAT EMULSION IV 20% 500 ML IV SCH (18:00)
[2016-09-09] MEDS ORDERED: [UNRECOGNIZED DRUG - OTHER] IV SCH ×8 (18:00)
[2016-09-09] MEDS ORDERED: SODIUM ACETATE IV SCH ×8 (18:00)
[2016-09-09] MEDS: TAMSULOSIN 0.4 MG CAP PO SCH (21:00)
[2016-09-09] MEDS: oxyBUTYnin 5 MG TAB PO SCH (21:26)
[2016-09-09] MEDS: LATANOPROST 0.005% OPHTH SOLN 2.5 ML OU SCH (21:26)
--- NOTE | 2016-09-09 22:38 | ECGEPIP ---
Stationary ECG Study [facility] Test Date: 2016-09-09 Pat Name: Kelli BANKS Department: Room: [place] [address] Gender: M Sample Driller: : 1950 Requested By: MARILYNN Hien Order Number: [id number] Reading MD: Floyd Monahan Measurements Intervals [place] Rate: 179 P: DC: 0 QRS: 40 QRSD: 106 T: 0 QT: 190 QTc: 328 Interpretive Statements SUPRAVENTRICULAR TACHYCARDIA LOW QRS VOLTAGE IN EXTREMITY LEADS ST DEPRESSION, CONSIDER SUBENDOCARDIAL INJURY Electronically Signed On 09-09-2016 22:38:29 EDT by Floyd Monahan
[2016-09-10] VITALS (27 sets, daily range): BP systolic 108–146; BP diastolic 53–82
[2016-09-10] MEDS: NYSTATIN 500,000 U/5 ML SUSP UDC SS SCH ×5 (00:09→23:41)
[2016-09-10] MEDS: PROPOFOL 1,000 MG in APPROPRIATE DILUENT 1 EA IV SCH ×3 (00:47→19:20)
[2016-09-10] MEDS ORDERED: DIGOXIN INJ 0.5 MG/2 ML AMP (J1160) As Ordered ONE (01:44)
[2016-09-10] MEDS ORDERED: DIGOXIN INJ 0.5 MG/2 ML AMP (J1160) IV ONE ×2 (01:45→06:15)
[2016-09-10] MEDS: PIPERACILLIN/TAZOBACTAM SOD 3.375 GM in D5W MINI-BAG PLUS 50 ML IV SCH ×3 (01:56→17:03)
[2016-09-10] MEDS: VANCOMYCIN HCL 1,000 MG, VIAL MATE ADAPTER 1 EACH in D5W 250 ML IV SCH ×4 (03:16→21:01)
[2016-09-10] MEDS: SLF 3 ML SYR IV SCH ×3 (05:46→21:03)
[2016-09-10] MEDS: SODIUM CHLORIDE 0.9% INJ 10 ML SYR IV SCH ×3 (05:46→21:04)
[2016-09-10] MEDS: HEPARIN SOD (PORCINE) 5000 UNITS/ML VIAL SC SCH ×3 (05:46→21:03)
[2016-09-10 06:12] LABS: MEAN CORPUSCULAR HEMOGLOBIN 30.4 pg (27.0-33.0); MEAN CORPUSCULAR VOLUME 92.1 fl (80.0-96.0); PLATELET COUNT, AUTOMATED 158 k/mm3 (150-450); RED CELL DISTRIBUTION WIDTH 14.8 % (11.5-14.5); WHITE BLOOD COUNT 15.5 K/mm3 (4.0-10.0)
[2016-09-10 06:30] LABS: BANDS 7 % (< 11); EOSINOPHILS 1 % (0-5)
[2016-09-10 06:32] LABS: ANISOCYTOSIS 1+; HYPOCHROMASIA 1+
[2016-09-10 06:33] LABS: ABG BASE EXCESS -1.8 (-2.0-2.0); ABG HCO3 21.5 MEQ/L (22.0-26.0); ABG PARTIAL PRESSURE CO2 31.9 mmHg (35.0-45.0); ABG PARTIAL PRESSURE O2 83.6 mmHg (75.0-100.0); ABG STANDARD HCO3 22.9 MEQ/L (22.0-26.0); ABG TOTAL CO2 22.5 MEQ/L (23.0-31.0); ABG pH (ARTERIAL) 7.447 UNITS (7.350-7.450)
[2016-09-10 06:35] LABS: ALBUMIN 1.1 GM/DL (3.2-5.2); ALBUMIN/GLOBULIN RATIO 0.42 (1.00-1.93); ALKALINE PHOSPHATASE 141 U/L (45-117); ALT/SGPT 14 U/L (12-78); ANION GAP 8 MEQ/L (8-16); AST/SGOT 21 U/L (15-37); BILIRUBIN,TOTAL 2.4 MG/DL (0.2-1.0); BLOOD UREA NITROGEN 25 MG/DL (7-18); CALCIUM LEVEL 7.4 MG/DL (8.8-10.2); CARBON DIOXIDE LEVEL 27 MEQ/L (21-32); CHLORIDE LEVEL 109 MEQ/L (98-107); CREATININE FOR GFR 0.95 MG/DL (0.70-1.30); GLOMERULAR FILTRATION RATE > 60.0 (>49); GLUCOSE, FASTING 94 MG/DL (80-110); MAGNESIUM LEVEL 2.1 MG/DL (1.8-2.4); POTASSIUM SERUM 3.6 MEQ/L (3.5-5.1); SODIUM LEVEL 144 MEQ/L (136-145); TOTAL PROTEIN 3.7 GM/DL (6.4-8.2)
[2016-09-10] MEDS: MIDAZOLAM INJ 2 MG/2 ML VIAL (J2250) IV PRN ×4 (08:18→15:59)
[2016-09-10] MEDS ORDERED: AMIODARONE HCL 150 MG in APPROPRIATE DILUENT 1 EA IV ONE (08:30)
[2016-09-10] MEDS: PANTOPRAZOLE 40MG INJ (PROTONIX) (C9113) IV SCH (08:34)
[2016-09-10] MEDS: LACOSAMIDE 10MG/ML 20ML VIAL (VIMPAT) (C9254) IV SCH ×2 (08:34→21:01)
[2016-09-10] MEDS: levETIRAcetam INJection 500 MG in D5W MINI-BAG PLUS 100 ML IV SCH ×2 (08:34→20:52)
[2016-09-10] MEDS: VALPROIC ACID SYRUP 250 MG/5 ML UDC PO SCH ×3 (08:35→20:59)
[2016-09-10] MEDS: SENOKOT S TAB PO SCH ×2 (08:35→21:01)
--- NOTE | 2016-09-10 08:44 | REP ---
Portable chest, single AP view, the patient semi upright, 09/10/2016, 07:00 a.m.: Comparison is 09/09/2016. Diffuse bilateral perihilar alveolar and interstitial infiltrates are again identified extending into the peripheral upper and lower lung zones. The pattern is unchanged. Cardiac size is normal. The endotracheal tube and nasogastric tube remain in satisfactory locations, unchanged. Impression: No interval change. Signed by Ariel Khan MD 09/10/2016 08:36 A
--- NOTE | 2016-09-10 10:16 | CCN ---
DATE: 09/10/2016 START TIME: 904 STOP TIME: 944 I again attended Mr. Flores. He had more difficulties with intermittent atrial fibrillation through the night. He responded to some IV digoxin. I have now asked cardiology to become involved in his care. He has been seen this morning by Dr. Barron. Maximum temperature (T-max) overnight 101.3. Heart rate 96 to the 160s, currently a sinus mechanism in the 90s. Blood pressure 108 to 130 systolic and he has remained off of vasopressors. Respiratory rate generally in the 20s without accessory muscle use. Ins and outs to midnight last night for the previous 24 hours 3393 mL in with 3840 mL out. Most recent labs show a white blood cell count of 15.5, hemoglobin 10.2, and platelet count 158,000 with 76% segs, 7 bands. Sodium 144, potassium 3.6, chloride 109, CO2 27, BUN 25, creatinine 0.95, albumin 1.1. Total bilirubin mildly elevated from yesterday, now 2.4 this morning. The most recent arterial blood gas done on a PRVC, rate of 15, tidal volume of 460, PEEP of 10, FiO2 of 30% has pH 7.47, pCO2 31.9, pO2 of 83.6. Chest x-ray shows lines and tubes in good position. His densities/edema versus infiltrate are less pronounced than yesterday. On examination, he remains ill appearing. He over breathes the ventilator. Eyes are open. He does intermittently respond to voice, but does not follow commands. Pupils do react. Sclerae clear. Chest shows symmetric expansion. There are some rhonchi, some dependent crackles. Cardiac examination is regular. Peripheral pulses are palpable. Edema is unchanged, at least 2+. Abdomen shows his colostomy appears to be working, is pink. Dressings and drains are intact. Extremities show no cyanosis or clubbing. Neurologically as outlined above, consistent with his known mental disability. The most pressing problems requiring my presence at the bedside are: 1. Hypoxemic respiratory failure. 2. Pulmonary edema/noncardiogenic versus infiltrate. 3. Ischemic bowel status post resection. 4. Seizures. 5. Supraventricular tachycardia (SVT)/atrial fibrillation. 6. Fevers. At this point, infectious disease and cardiology are involved in his care. Tube feeds have been started by the primary service as he had been weaned from the TPN. At this point, I will gently diminish his PEEP as we have been able to decrease his level of FiO2. I need to see some more significant progress before I believe he will be able to tolerate extubation. Hopefully, in the next 24-48 hours, we can push his weaning somewhat. Antibiotics per primary service and infectious disease (ID). Ulcer and deep vein thrombosis (DVT) prophylaxis are in place. Overall, his prognosis remains guarded. Will proceed as outlined above. I left the bedside at 0945 hours. 40 minutes of critical care time delivered at the bedside, not including procedures.
--- NOTE | 2016-09-10 14:01 | IPN ---
DATE: 09/10/2016 Patient is seen and examined at the bedside. Chart has been reviewed. Yesterday, patient had episodes of supraventricular tachycardia (SVT) with ventricular rate of 162, 157. Was given two doses of adenosine this morning at 6 a.m. Patient continued to have tachyarrhythmia at 1:30 a.m. with rate of 157. Dr. Barron has been consulted this morning with a rate of 160. Patient was given amiodarone times one dose and rate currently is sinus rhythm of 89-104. Systolic pressure is well-maintained in the 110s to 146. Per nursing, patient has had adequate urine output of about 100 mL/hour. He had a maximum temperature (Tmax) of 101.3 at midnight and at 4 a.m. No signs of cellulitis. Lines appear clean. Patient has serous discharge at the stoma. White count is steadily increasing, currently at 15.5. No skin breakdown. No erythematous or maculopapular rash. No bowel movements. PHYSICAL EXAMINATION: Temperature 98.3, Tmax of 101.3, pulse 89, respiratory rate 25, blood pressure 134/63, 30% FiO2 vented. Generally: Patient is heavily sedated, winces to examination to painful stimuli. Nasogastric tube, endotracheal (ET) tube in place. Input 3393, output 3840, negative 446. Current weight 93.1 kg. Lungs: Diminished. Coarse rhonchi and bibasilar crackles. Heart: S1, S2, tachycardic. Abdomen soft. Stoma is edematous. Scrotal edema. Colostomy. Dressing and drains, nonerythematous, serous drainage. Extremities: Positive pitting edema. White count 15.5, hemoglobin 10, hematocrit 30, platelet count 158. Sodium 144, potassium 3.6, chloride 109, bicarbonate 27, BUN 25, creatinine 0.95, glucose 94, calcium 7.4. Microbiology: Sputum culture Enterobacter, resistant to cephazolin. 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 Ackerman. Nasogastric (NG) tube placed and Unasyn was administered. He was tachycardic and was intubated due to respiratory failure. Developed postoperative hypothermia with ischemic bowel status post resection and supraventricular tachycardia (SVT). Patient was initially on phenylephrine, changed to Levophed, both vasopressors have been weaned. CURRENT ISSUES: 1. Ischemic incarcerated bowel requiring emergency surgery secondary to incarcerated internal hernia requiring vasopressor therapy. He developed postoperative hypothermia and respiratory distress requiring intubation for respiratory failure. Had been off vasopressor therapy, had been in positive balance. Patient had been placed on broad-spectrum antibiotics, vancomycin and Zosyn. Cultures grew out Enterobacter in the sputum. He continues to have recurrent fevers and Dr. Dale has been consulted. 2. Respiratory failure secondary to severe sepsis. Hypothermia postoperative. Respiratory failure due to ischemic bowel. Per Dr. Spicer, the patient is critically ill. Hold off at this time. 3. Supraventricular tachycardia (SVT). Patient had received adenosine times two doses and amiodarone this morning. Per Dr. Barron, continue with telemetry. Management per cardiology. 4. History of seizure disorder. On IV levetiracetam and Vimpat. 5. Enterobacter in sputum. On Zosyn. 6. Diffuse edema with hypervolemia. Patient received significant IV fluids for septic shock, remains in positive balance. 7. Normocytic anemia, dilutional, status post 5 units of red blood cells, 6 units of fresh frozen plasma (FFP). 8. Thrombocytopenia, resolved. Initially secondary to disseminated intravascular coagulation (DIC) from septic shock. 9. Hyponatremia is stable. 10. Hypomagnesemia, resolved. 11. Osteoporosis, chronic. 12. Gastrointestinal (GI) prophylaxis with Protonix. 13. Nutrition via total parenteral nutrition (TPN).
--- NOTE | 2016-09-10 17:18 | CR ---
INFECTIOUS DISEASE CONSULTATION: DATE OF CONSULTATION: 09/10/2016 Asked to consult by Dr. Savage for evaluation of a fever in a patient who recently had a small bowel resection due to obstruction. HISTORY OF PRESENT ILLNESS: Mr. Flores is a 65-year-old gentleman who was admitted on 09/02/[address] Ackerman for small bowel obstruction and abdominal pain. He is a resident of [facility] ([facility]) for mild intellectual disability. He came to the emergency room complaining of abdominal pain around his ostomy and decreased output. The patient has a colostomy done many years ago for a benign condition. He had a followup colonoscopy done in 2012, which was negative. The patient stated he has episodes of nausea with vomiting. He had a white count on admission of 11.4, which worsened to 15 the next day and down to 2.2 on 09/04/2016. At that point, it was felt that the patient was worsening and he was taken to the emergency room for a small bowel obstruction, small bowel resection with primary anastomosis. The small bowel loop with found to be necrotic. It was felt to be caused by an internal hernia. On 09/04/2016, the patient had a blood culture, two sets that were negative. A chest CT showed right and small left lower lobe consolidation and rib fractures on the through , which were subacute. He was in the intensive care unit (ICU) and progressively was getting worse with worsening hypoxia and oxygenation. On 09/08/2016, he had a temperature of 100.2; on 09/09/2016, 100.8. On 09/07/2016, he also had increasing oxygen demand and was bronchoscoped by Dr. Spicer for mucus plugging. Secretions had a few Enterobacter cloacae. His FiO2 was up to 100%. Patient FiO2 currently is down to 30% with a PEEP of 8. He has minimal secretions. He was started on vancomycin and Zosyn. The patient has slowly improved but still has low-grade fever. He is intubated, sedated on propofol, and patient has a central line through which he is getting total parenteral nutrition (TPN), but also he was started on tube feeds today. PAST MEDICAL HISTORY: Is significant for seizure disorder, osteoporosis, BPH. PAST SURGICAL HISTORY: Colostomy and left knee surgery. SOCIAL HISTORY: Lives at [facility]. FAMILY HISTORY: Could not be obtained. ALLERGIES: None. MEDICATIONS: - TPN - nystatin 5 mL swish and swallow every 6 hours - vancomycin 1 gram intravenously (IV) every 6 hours - alendronate 70 mg every Thursday - Depakene 500 mg by mouth three times a day - propofol drip - midazolam as needed - Keppra 500 mg IV twice a day - Zosyn 3.375 grams IV every 8 hours - Ditropan 5 mg by mouth nightly - Xalatan eye drops one drop both eyes nightly - Protonix 40 mg IV daily - Senokot one tablet by mouth twice a day LABS: White count is 15.5, hemoglobin 10.2, hematocrit 30.8, platelets 158, 76% neutrophils, 7% bands, 2% lymphocytes, 8% monocytes. Sodium 144, potassium 3.6, chloride 109, bicarbonate 27, BUN 25, creatinine 0.95, glucose 94, calcium 7.4, magnesium 2.1, bilirubin 2.4, AST 21, ALT 14, alkaline phosphatase 141, BNP 334, total protein 3.7, albumin 1.1, cholesterol 131, triglycerides 424. Blood cultures done on 09/04/2016 were no growth after 5 days. Sputum culture from bronchoscopy had very few Enterobacter cloacae, only resistant to cefazolin. Repeat blood cultures were ordered for today. IMAGING: Chest x-ray shows no change with bilateral interstitial infiltrates on 09/10/2016. Nasogastric (NG) tube and endotracheal (ET) tube were in appropriate positions. ON PHYSICAL EXAM: Maximum temperature (Tmax) 100.3, currently 98.2. Pulse 98. Respirations 24 on the ventilator. Blood pressure 128/60. Oxygen saturation 97% on room air. FiO2 30%. HEART: Normal S1, S2. No murmurs appreciated. LUNGS: Few expiratory rhonchi. ABDOMEN: Soft, distended. Diminished bowel sounds. Multiple areas of scabs or skin breakdown from tape. Midline of the abdomen has leticia. Very minimal serosanguineous discharge. There is a Kevin-Crump (EUSEBIA) drain on the right lower quadrant. There is a colostomy left lower quadrant, which is very edematous with minimal, mostly yellowish bloody drainage in the bag but no stool. EXTREMITIES: +1 pitting edema bilaterally. Ecchymosis of the big toe on the right side. Ecchymosis of the 2nd toe on the left side. No calf tenderness. +1 ankle edema bilaterally. SCROTUM: Very edematous, symmetric. No purulence. Excoriation with maceration of the skin. IMPRESSION: This is a 65-year-old gentleman who was admitted with small bowel obstruction from an internal hernia with necrotic bowel who underwent on 09/04/2016 a resection with primary anastomosis. On 09/07/2016, he decompensated with mucus plugging. Bronchoscopy secretions had very few Enterobacter cloacae. The patient had a fever. Chest CT shows some consolidation. He developed hypoxemic respiratory failure, which could be a combination of edema, pulmonary edema versus infiltrate. Sputum culture did not have significant growth. The fevers could be related also to his ischemic bowel and necrosis. Patient is currently on vancomycin and Zosyn. PLAN: Obtain blood cultures to rule out possibly line infection, although this is unlikely. The patient has only had the line for 5 days. Rule out candidemia. The patient had bowel resection and, therefore, is at risk of candidemia as well as TPN increases his risk. If the patient has positive blood cultures for fungus, would add Diflucan; otherwise, would hold off at this time. The patient seems to be doing better. If blood cultures remain negative, would discontinue vancomycin and would just continue with Zosyn. Will continue to follow. Nystatin powder to scrotal area. Patient has significant maceration. Elevate the scrotum. Edited: raven 09/10/2016 [id number]
[2016-09-10] MEDS ORDERED: FAT EMULSION IV 20% 500 ML IV SCH (18:00)
[2016-09-10] MEDS ORDERED: SODIUM CHLORIDE IV SCH ×10 (18:00)
[2016-09-10] MEDS ORDERED: SODIUM ACETATE IV SCH ×10 (18:00)
[2016-09-10] MEDS ORDERED: [UNRECOGNIZED DRUG - OTHER] IV SCH ×10 (18:00)
[2016-09-10] MEDS: oxyBUTYnin 5 MG TAB PO SCH (21:01)
[2016-09-10] MEDS: LATANOPROST 0.005% OPHTH SOLN 2.5 ML OU SCH (21:02)
[2016-09-10] MEDS: TAMSULOSIN 0.4 MG CAP PO SCH (21:04)
[2016-09-10] MEDS: NYSTATIN 100,000 UNITS/GM TOPICAL PWD 15 GM TOP SCH (21:06)
--- NOTE | 2016-09-10 22:35 | CR ---
DATE OF CARDIOLOGY CONSULTATION: 09/10/2016 REFERRING PHYSICIAN: Terry Spicer MD INDICATION: Supraventricular tachycardia. HISTORY OF PRESENT ILLNESS: Dr. Spicer has asked me this morning to assist with management of narrow complex tachycardia that Mr. Flores has had now intermittently for several days. He is 65-year-old man who presented with small bowel obstruction and underwent fairly extensive abdominal surgery on 09/04 that was complicated by development of sepsis. He was on pressors and had numerous episodes of supraventricular tachycardia. It was felt that it was principally related to administration of pressor amines and consequently was not felt to be particularly unusual, but his condition has gradually improved and currently he is off pressor support and yet he continued to have runs last night. He was given initially half a mg of digoxin and then additional 0.25 mg of digoxin on two separate occasions, which seems to have terminated the arrhythmias. He also received single dose of adenosine, which also seemed to lead to resolution of the arrhythmia. Nevertheless, because of its recurrent nature, I was asked to assist with further management. Mr. Flores does not have any history of cardiovascular disease in the past. He had an echocardiogram during this hospitalization on September 06 that revealed preserved left ventricular systolic function and no significant valvular disease. PAST MEDICAL HISTORY: Positive for seizure disorder, osteoporosis, benign prostatic hypertrophy (BPH), colostomy and mild mental retardation. PAST SURGICAL HISTORY: Positive for colostomy, for benign diagnosis years ago and knee surgery. FAMILY HISTORY: Unable to obtain. The patient is [facility] resident, currently intubated and sedated. ALLERGIES: There are no allergies. CURRENT MEDICATIONS: Include total parenteral nutrition (TPN), doses of digoxin, adenosine. As per history of present illness he is on prophylactic dose of heparin. He is receiving vancomycin, Fosamax, Depakote, propofol, versed, Vimpat, Piperacillin/tazobatram, Flomax, Protonix and Tylenol. REVIEW OF SYSTEMS: Unobtainable due to his condition. PHYSICAL EXAMINATION: Mr. Flores appears approximately his age. He is currently sedated and intubated on a ventilator. Vital signs this morning reveal blood pressure 135/87, heart rate around 100 beats per minute. He is afebrile. Saturation was 97% on 30% FIO2. His jugular venous pressure did not look high. Lungs reveal occasional end-inspiratory crackles and rhonchi. No wheezing. Heart: Exam reveals somewhat muffled heart sound, overshadowed by respiratory sounds, but I did not appreciate any gallop, rub or murmur. Abdomen: Soft. Bowel sounds are present. NG tube and central line are in place. Extremities had no significant edema. Neurologic status was altered by his sedation. LABORATORY: CBC reveals hemoglobin 10.2, hematocrit 30.8, platelet count 158,000 , WBC count 15.5. Basic metabolic panel: Potassium 3.6, BUN 25, creatinine 1.0, glucose 97 and magnesium 2.1, albumin is only 1.1. There are numerous ECGs on chart. There are three ECGs from September 04 when he was a operated on. Two of them revealed narrow complex tachycardia with ventricular rate of 165 beats per minute and nonspecific repolarization abnormalities. One of them reveals sinus rhythm with ventricular rate 98 beats per minute, poor R-wave progression, but otherwise relatively unremarkable ECG. There are two ECGs from September 05, one of them again reveals identical tachycardia with ventricular rate 165 beats per minute, but the second one has narrow complex tachycardia with heart rate 142 beats per minute and then there is EKG from September 09, which revealed supraventricular tachycardia of the same QRS morphology with ventricular rate 179 beats per minute. I also reviewed ECG tracing from last night when he received the dose of adenosine, which led to high degree AV block it becomes obvious that there are P waves that are nonconducted. ASSESSMENT/PLAN: Mr. Flores is a 65-year-old man who is recovering after extensive abdominal surgery complicated by sepsis and required intubation and ventilation and for previously also administration of pressor amines. He continues to have episodes of narrow complex tachycardia. The fact that the adenosine caused high degree AV block and yet the PV morphology continues to be in change argues against AV node being a part of the arrhythmia. Consequently the differential diagnosis includes atypical atrial flutter, which in my opinion is the most likely diagnosis versus atrial tachycardia. Atrial flutter typically has same cycle length which has been the case for most of the ECGs, but there are two ECGs where the heart rate varies. It can be explained by possible acidosis or effects of the pressor amines. In any case, sometimes it is difficult to control these types of arrhythmias using AV kathy agents or digoxin and consequently in my opinion the drug of choice should be amiodarone in the setting where the oral intake is unlikely to be reliable. I gave him 150 mg of IV as a single dose. If that should be effective, I would not be can continuing any additional doses, but if he has relapses then I would administer additional doses. I think it is likely that as his condition continues to improve this will become much less of an issue, but if it should continue to be a problem then a brief course of amiodarone lasting a few weeks in NG or oral form certainly would seem appropriate. Once the oral intake becomes reliable we can alternatively also consider medications like flecainide, but for the time being considering his overall sickness I believe that amiodarone is a much better choice. Thank you for this consultation. EDSON
[2016-09-11] VITALS (25 sets, daily range): BP systolic 82–142; BP diastolic 47–75
[2016-09-11] MEDS: MIDAZOLAM INJ 2 MG/2 ML VIAL (J2250) IV PRN ×3 (01:23→14:44)
[2016-09-11] MEDS: PIPERACILLIN/TAZOBACTAM SOD 3.375 GM in D5W MINI-BAG PLUS 50 ML IV SCH ×3 (01:45→17:02)
[2016-09-11] MEDS: PROPOFOL 1,000 MG in APPROPRIATE DILUENT 1 EA IV SCH ×5 (01:46→22:20)
[2016-09-11] MEDS: VANCOMYCIN HCL 1,000 MG, VIAL MATE ADAPTER 1 EACH in D5W 250 ML IV SCH ×3 (02:50→14:45)
[2016-09-11] MEDS: NYSTATIN 500,000 U/5 ML SUSP UDC SS SCH ×3 (05:16→17:01)
[2016-09-11] MEDS: SODIUM CHLORIDE 0.9% INJ 10 ML SYR IV SCH ×3 (05:16→21:25)
[2016-09-11] MEDS: SLF 3 ML SYR IV SCH ×3 (05:17→21:26)
[2016-09-11] MEDS: HEPARIN SOD (PORCINE) 5000 UNITS/ML VIAL SC SCH ×3 (05:17→21:26)
[2016-09-11 05:45] LABS: BASO # 0.1 K/mm3 (0.0-0.2); BASO % 0.4 % (0.0-1.0); EOS # 0.3 K/mm3 (0.0-0.50); EOS % 1.7 % (0.0-3.0); LARGE UNSTAINED CELL # 0.2 K/mm3 (0.0-0.4); LARGE UNSTAINED CELL % 1.2 % (0.0-4.0); LYMPH # 0.5 K/mm3 (1.5-4.5); LYMPH % 2.6 % (24.0-44.0); MEAN CORPUSCULAR HEMOGLOBIN 30.2 pg (27.0-33.0); MEAN CORPUSCULAR HGB CONC 32.8 g/dl (32.0-36.5); MEAN CORPUSCULAR VOLUME 92.1 fl (80.0-96.0); MONO # 0.6 K/mm3 (0.0-0.8); MONO % 3.6 % (0.0-5.0); NEUTROPHILS % 90.5 % (36.0-66.0); PLATELET COUNT, AUTOMATED 189 k/mm3 (150-450); RED CELL DISTRIBUTION WIDTH 14.7 % (11.5-14.5); WHITE BLOOD COUNT 17.7 K/mm3 (4.0-10.0)
[2016-09-11 06:00] LABS: ALBUMIN/GLOBULIN RATIO 0.37 (1.00-1.93); ALKALINE PHOSPHATASE 141 U/L (45-117); ALT/SGPT 18 U/L (12-78); ANION GAP 9 MEQ/L (8-16); AST/SGOT 27 U/L (15-37); BILIRUBIN,TOTAL 2.7 MG/DL (0.2-1.0); BLOOD UREA NITROGEN 28 MG/DL (7-18); CALCIUM LEVEL 6.8 MG/DL (8.8-10.2); CARBON DIOXIDE LEVEL 26 MEQ/L (21-32); CHLORIDE LEVEL 107 MEQ/L (98-107); GLOMERULAR FILTRATION RATE > 60.0 (>49); GLUCOSE, FASTING 103 MG/DL (80-110); MAGNESIUM LEVEL 2.2 MG/DL (1.8-2.4); POTASSIUM SERUM 3.6 MEQ/L (3.5-5.1); SODIUM LEVEL 142 MEQ/L (136-145); TOTAL PROTEIN 3.7 GM/DL (6.4-8.2)
[2016-09-11] MEDS ORDERED: GASTROGRAFIN SOLUTION 30ML PO ONE (06:45)
--- NOTE | 2016-09-11 07:06 | IPN ---
DATE: 09/11/2016 SUBJECTIVE: Per nursing, patient had low-grade temperature of 100.4 with a temperature maximum (T-max) of 101.3. Despite broad-spectrum antibiotics vancomycin and Zosyn, he continues to have worsening white count to 17.7. Blood cultures still remain negative. Sputum culture with Enterobacter with chest x-ray showing bilateral infiltrates. The patient continues to have serosanguineous minimal drainage through the incision line on the right abdomen. He has minimal. He did not tolerate tube feedings yesterday, with significant residual. He remained in sinus rhythm after one dose of intravenous (IV) amiodarone, with ventricular rate at 92-101. Blood pressure is well maintained at 188-142 systolic. The patient winces and responds to painful stimuli. Urine output was adequate. Output of 2.595 liters yesterday over 24 hours. He remains in positive balance, currently at 94.6 kg. OBJECTIVE: VITAL SIGNS: Temperature 99.4, T-max of 101.3, pulse sinus rhythm ventricular rate of 90, respiratory rate 24, blood pressure 118/56, 98%, FiO2 30%. Input 3502, output 2595. Positive 907. Current weight is 94.6 kg. Urine output 1710, plus 325 this morning. Stool output 175 via ostomy, and 125 this morning. Drainage was 470 mL and 140 this morning. GENERAL: The patient is heavily sedated. Orogastric tube in place. Intubated. He grimaces to pain. HEART: S1, S2. Sinus rhythm. No murmurs, rubs, or gallops. LUNGS: Diminished breath sounds, bilateral crackles at the bases and coarse rhonchi. ABDOMEN: Soft, slightly distended. Diminished bowel sounds. [place] in the mid abdomen. Some very mild serosanguineous drainage. Kevin-Crump (EUSEBIA) drain on the right lower quadrant. Colostomy in left lower quadrant which is edematous. EXTREMITIES: One plus pitting edema. Scrotum edematous with some excoriations. LABORATORY DATA: White count 17.7, hemoglobin 10, hematocrit 30, platelet count 189. Sodium 142, potassium 3.6, chloride 107, bicarbonate 26, BUN 28, creatinine 1, glucose 103. MICROBIOLOGY: Blood culture of 09/10 pending. Sputum culture Enterobacter. Two sets of blood culture 09/04 negative. IMAGING: Chest x-ray: Diffuse bilateral infiltrates. ASSESSMENT AND PLAN: This is a 65-year-old male, resident at [facility] ([facility]), history of seizures, osteoporosis, benign prostatic hypertrophy (BPH), sigmoidectomy, admitted for complaints of nausea, vomiting, abdominal distention , found to have incarcerated hernia with an ischemic bowel, underwent resection with primary anastomosis 09/04/2016, with decompensated respiratory failure requiring intubation. Bronchoscopy and sputum only showed Enterobacter cloacae with recurrent fevers. CT showed consolidation. The patient was placed on vancomycin and Zosyn. He then developed tachyarrhythmia, initially felt to be supraventricular tachycardia (SVT), given adenosine with no improvement, found to have atrial flutter, and was given one dose of IV amiodarone. The patient continues to be sinus rhythm. He has been off vasopressors, initially given IV fluids for severe septic shock. CURRENT ISSUES: 1. Ischemic bowel secondary to incarcerate hernia requiring emergency surgery, status post vasopressor therapy. The patient is still on vancomycin and Zosyn. Grew out Enterobacter in the sputum. Per Dr. Dale, the patient is at risk for fungal infection due to total parenteral nutrition (TPN) and if blood cultures are negative, may discontinue vancomycin and continue on Zosyn. CT abdomen and pelvis to rule out abscess formation. Blood cultures have been obtained to rule out line sepsis. 2. Respiratory failure secondary to severe sepsis. CT chest consolidation, on Vanco and zosyn. The patient remains critically ill. Dr. Spicer, inspector final assembly mechanical and counterintelligence specialist, managing his ventilatory needs. 3. Atrial flutter. The patient was given one dose of IV amiodarone, appears to be in sinus rhythm with acceptable ventricular rate. He currently is not tolerating tube feeding. Unable to provide oral medications at this time. 4. History of seizure disorder on IV levetiracetam and Vimpat. 5. Normocytic anemia, status post five units red blood cell transfusion and six units of fresh frozen plasma (FFP). 6. Thrombocytopenia resolved. Initially due to disseminated intravascular coagulation (DIC) from septic shock. 7. Hyponatremia, resolved. 8. Hypermagnesemia, resolved. 9. Gastrointestinal (GI) prophylaxis with Protonix. 10. Nutrition. Tube feedings were started but not tolerated. May consider resuming TPN. Refer to primary service. [facility]
[2016-09-11] MEDS ORDERED: GASTROGRAFIN SOLUTION 30ML (Q9963) PO ONE (07:15)
--- NOTE | 2016-09-11 07:58 | IPN ---
DATE: 09/11/2016 Mr. Flores has not had any recurrence of arrhythmia since yesterday morning. Blood pressure 111/54. Heart rate mostly 90s. He is afebrile. Saturation 97% on 30% FIO2. Lungs reveal occasional crackles, but for the most part are reasonably clear. Heart exam regular rhythm with no gallop, rub or murmur. Abdomen is soft. Bowel sounds are present. Extremities have 1+ edema. Neurological exam is limited by sedation. LABORATORIES: WBC count 7.7, hemoglobin 10, hematocrit 30, platelet count 189. Basic metabolic panel is essentially normal. ASSESSMENT/PLAN: Mr. Flores is a 65-year-old man who presented with intra-abdominal emergency and underwent surgery with resection of necrotic bowel. His postoperative course has been complicated by respiratory insufficiency and need for intubation and ventilation. He continued to have episodes of narrow complex tachycardia with typical heart rate of 165 beats per minute, but the heart rate was not always the same. It is very likely atypical atrial flutter or some form of atrial tachycardia. After he received a single dose of amiodarone yesterday, there has not been any recurrence. My recommendation would be to observe patient only. If there are recurrences, I would use as needed amiodarone dosing. If this should remain an issue, then we probably will load him with amiodarone and use it for a few weeks. I think that it is likely that after he recovers from his acute illness that this will not be an issue in the long run. I am not going to continue routine followup. If there are problems with arrhythmias again, please do not hesitate to contact me.
[2016-09-11] MEDS ORDERED: ISOVUE-370 76% 100ML VIAL (Q9967) As Ordered ONE (08:37)
--- NOTE | 2016-09-11 09:22 | REP ---
Portable chest, 09:05 a.m., 09/11/2016: Comparison is 09/10/2016. The bilateral large perihilar alveolar and interstitial infiltrates are again identified, not significantly changed. Cardiac size appears normal. No pleural effusions. The patient is rotated. Signed by Ariel Khan MD 09/11/2016 09:13 A
--- NOTE | 2016-09-11 09:45 | REP ---
REASON FOR EXAM: Recurrent pyrexia, history of ischemic bowel. COMPARISON EXAM: 09/04/2016 CONTRAST: 100 mL [id number]. The lung bases show bilateral pleural effusions, which have increased in size. There are bilateral patchy and asymmetric opacities some of which have air bronchograms within them, also increased from the prior exam. There is no evidence of a pericardial effusion. There is cholelithiasis, status quo. The liver and spleen are unchanged. Once again, there are multiple gas and fluid-filled dilated small bowel loops throughout the abdomen. There is free intraperitoneal air. The martin of the left colon are thickened and edematous. There is generalized fatty infiltration throughout the leaves of the small bowel and large bowel mesentery. This has increased from the prior exam. There is a surgical drainage tube in place, which represents a change from the prior exam. There is no change in appearance of the colostomy site. There is a new anterior abdominal wall postoperative wound with multiple surgical leticia in place. The pancreas, adrenal glands, and kidneys are unchanged. The abdominal aorta and para-aortic regions are unchanged. CT PELVIS: There is a trace amount of free pelvic fluid. There is a Tai balloon seen decompressing the urinary bladder. The pelvic small bowel loops are dilated with thickened martin. Bone window technique throughout the exam shows no change in the osseous structures. Multiple fractures again noted, status quo. There is generalized fatty infiltration throughout the subcutaneous fat of the imaged portion of the torso. IMPRESSION: 1. Ileus versus small bowel obstruction. 2. Findings suggestive of colitis, whether ischemic or infections cannot be stated by this exam. 3. There is free intraperitoneal air, however, since the last examination, the patient has undergone abdominal surgery and that finding is most consistent with that recent procedure, however, I would recommend close followup to ensure resolution. 4. Evidence of generalized small bowel enteritis with small bowel wall thickening, again, whether infectious or vascular ischemic cannot be stated by this exam. 5. Evidence of generalized anasarca, as described above, which needs to be correlated clinically. 6. Increased bilateral pleural effusions and increased suspected bilateral subsegmental atelectatic change. Bibasilar pneumonia cannot be ruled out. 7. Other findings as described above. Signed by Manny Pérez DO 09/11/2016 10:18 A
[2016-09-11 09:59] LABS: ABG HCO3 24.3 MEQ/L (22.0-26.0); ABG PARTIAL PRESSURE CO2 36.4 mmHg (35.0-45.0); ABG PARTIAL PRESSURE O2 81.5 mmHg (75.0-100.0); ABG TOTAL CO2 25.4 MEQ/L (23.0-31.0); ABG pH (ARTERIAL) 7.442 UNITS (7.350-7.450)
[2016-09-11 10:00] LABS: ABG BASE EXCESS 0.4 (-2.0-2.0); ABG STANDARD HCO3 24.8 MEQ/L (22.0-26.0)
[2016-09-11] MEDS: LACOSAMIDE 10MG/ML 20ML VIAL (VIMPAT) (C9254) IV SCH ×2 (10:04→20:23)
[2016-09-11] MEDS: VALPROIC ACID SYRUP 250 MG/5 ML UDC PO SCH ×3 (10:04→20:22)
[2016-09-11] MEDS: SENOKOT S TAB PO SCH ×2 (10:04→20:22)
[2016-09-11] MEDS: PANTOPRAZOLE 40MG INJ (PROTONIX) (C9113) IV SCH (10:04)
[2016-09-11] MEDS: NYSTATIN 100,000 UNITS/GM TOPICAL PWD 15 GM TOP SCH ×2 (10:05→20:24)
[2016-09-11] MEDS: levETIRAcetam INJection 500 MG in D5W MINI-BAG PLUS 100 ML IV SCH ×2 (10:05→20:23)
--- NOTE | 2016-09-11 10:26 | CCN ---
DATE OF VISIT: 09/11/2016 I again attended Mr. Flores. We have minimized his sedation. He opens his eyes easily. He is fairly comfortable on the ventilator at the moment. No blood gas was obtained this morning. Chest x-ray done today compared to the last several days shows continuing slow improvement in his edema. Intake and output (I and O) ending midnight to midnight: 3502 mL with 2595 mL out. Maximum temperature (Tmax) 100.2, yesterday Tmax 101.3. Blood pressure 108-140s off vasopressors. Heart rate has been sinus mechanism since yesterday morning with a max of about 101. Respiratory rate generally in the 20s without accessory muscle use. White blood cell count 17.7, hemoglobin 10.0, platelet count 189,000, 90% segmented neutrophils, no bands today. Sodium 142, potassium 3.6, chloride 107, CO2 26, BUN 28, creatinine 1.0, bilirubin mildly elevated at 2.7 today. Albumin remains diminished at 1.0 today. On examination, he opens his eyes easily to voice. Does not reliably always follow commands. Pupils do react. Trachea is in the midline. Chest shows reasonably symmetric expansion. There are some scattered rhonchi. There are some dependent crackles in the early inspiratory phase. Cardiac examination is generally regular. Peripheral pulses are palpable. Diffuse edema unchanged. Abdomen shows his dressings and drains intact. Colostomy is pink and appears functioning. Extremities show no cyanosis or clubbing. Neurologically, as outlined above. The most pressing problems requiring my presence at the bedside are: 1. Respiratory failure. 2. Pulmonary edema, noncardiogenic. 3. Ischemic bowel, status post resection and need for very significant volume resuscitation. 4. Protein-calorie malnutrition. 5. Seizure disorder. At this point, we will change him to an intermittent mechanical ventilation (IMV) mode in hopes of beginning to facilitate weaning. Certainly, his essentially anasarca may impair this somewhat, but his gas exchange has shown a trend in the right direction. We will check a blood gas after the changes have been made. For his elevated white count and fever, I see that infectious disease is now involved. CT scan was ordered by the hospitalist this morning. I do see, however, that he does not have significant band count this morning. Ulcer and deep venous thrombosis (DVT) prophylaxis and nutrition per the primary service. Will make the changes outlined above.
[2016-09-11] MEDS ORDERED: AMIODARONE HCL 150 MG in APPROPRIATE DILUENT 1 EA IV STA ×4 (15:06)
[2016-09-11] MEDS ORDERED: AMIODARONE HCL 150 MG/100 ML PREMIXED BAG (NEXTERONE) As Ordered ONE (15:07)
[2016-09-11] MEDS ORDERED: [UNRECOGNIZED DRUG - OTHER] IV SCH ×8 (18:00)
[2016-09-11] MEDS ORDERED: SODIUM CHLORIDE IV SCH ×8 (18:00)
[2016-09-11] MEDS ORDERED: FAT EMULSION IV 20% 500 ML IV SCH (18:00)
[2016-09-11] MEDS ORDERED: SODIUM ACETATE IV SCH ×8 (18:00)
[2016-09-11] MEDS: oxyBUTYnin 5 MG TAB PO SCH (20:22)
[2016-09-11] MEDS: TAMSULOSIN 0.4 MG CAP PO SCH (20:22)
[2016-09-11] MEDS: LATANOPROST 0.005% OPHTH SOLN 2.5 ML OU SCH (20:23)
--- NOTE | 2016-09-11 20:56 | ECGEPIP ---
Stationary ECG Study [facility] Test Date: 2016-09-11 Pat Name: Kelli BANKS Department: Room: [place] [address] Gender: M Statistical Consultant: MARJORIE : 1950 Requested By: ANTONIO CLINE1 Order Number: [id number] Reading MD: Floyd Monahan Measurements Intervals Supai Rate: 94 P: 28 VT: 112 QRS: 15 QRSD: 101 T: 35 QT: 300 QTc: 376 Interpretive Statements SINUS RHYTHM WITH SHORT VT INTERVAL LOW QRS VOLTAGE Electronically Signed On 09-11-2016 20:56:44 EDT by Floyd Monahan
--- NOTE | 2016-09-11 22:03 | IPN ---
DATE: 09/11/2016 Mr. Flores seems to be doing fairly well. He is comfortable on the ventilator. His sedation has been decreased. He is on propofol. He seems to be oxygenating well. He is on an FiO2 of 30%. He has had a low-grade fever; his maximum temperature (T max) was 100.2 over the past 24 hours. Heart: Normal S1, S2. No murmurs. Lungs are diminished at bases but clear. Abdomen is soft. Decreased bowel sounds, does not seem to be much tenderness. There is a colostomy, which is quite edematous in the left lower quadrant. Midline scars of staple with minimal erythema on the superior aspect of the scar. Extremities: +2 edema, especially of the thigh and scrotum. LABORATORY DATA: White count is 17.7, hemoglobin 10, hematocrit 30.4, platelets 189, 90% neutrophils, 2% lymphocytes, 3% monocytes. Sodium 142, potassium 3.6, chloride 107, bicarbonate 26, BUN 28, creatinine 1, glucose 103, calcium 6.8, magnesium 2.2, total bilirubin is 2.7, AST 27, ALT 18. Blood cultures on 09/10/2016 were no growth after 24 hours from central line and peripheral line. Sputum culture had Enterobacter cloacae. IMPRESSION: 1. Respiratory failure with sputum culture positive for Enterobacter cloacae, although few; the patient is currently on Zosyn. I suspect his respiratory compromise was more of a result of mucous plugging. 2. Noncardiogenic pulmonary edema. 3. Ischemic bowel with necrotic bowel, status post resection. This is the most likely source of his fever and leukocytosis. His leukocytosis currently is more reactive. With his improving platelet count, his white count is also increasing from a low of 2.2 when he was septic. PLAN: Discontinue IV vancomycin. There is no evidence of gram positive infection. Continue Zosyn for treatment of necrotic bowel, intra-abdominal process and possibly Enterobacter.
[2016-09-12] VITALS (22 sets, daily range): BP systolic 91–172; BP diastolic 50–122; O2SAT 95–97
[2016-09-12] MEDS: MIDAZOLAM INJ 2 MG/2 ML VIAL (J2250) IV PRN ×2 (00:24→04:12)
[2016-09-12] MEDS: NYSTATIN 500,000 U/5 ML SUSP UDC SS SCH ×5 (00:24→23:45)
[2016-09-12] MEDS: PIPERACILLIN/TAZOBACTAM SOD 3.375 GM in D5W MINI-BAG PLUS 50 ML IV SCH ×3 (02:35→17:45)
[2016-09-12] MEDS: PROPOFOL 1,000 MG in APPROPRIATE DILUENT 1 EA IV SCH ×2 (02:36→05:58)
[2016-09-12] MEDS: HEPARIN SOD (PORCINE) 5000 UNITS/ML VIAL SC SCH ×3 (05:36→20:36)
[2016-09-12] MEDS: SLF 3 ML SYR IV SCH ×3 (05:37→20:37)
[2016-09-12] MEDS: SODIUM CHLORIDE 0.9% INJ 10 ML SYR IV SCH ×3 (05:37→20:37)
[2016-09-12 06:37] LABS: ABG BASE EXCESS -0.4 (-2.0-2.0); ABG HCO3 23.7 MEQ/L (22.0-26.0); ABG PARTIAL PRESSURE CO2 36.3 mmHg (35.0-45.0); ABG PARTIAL PRESSURE O2 52.7 mmHg (75.0-100.0); ABG TOTAL CO2 24.8 MEQ/L (23.0-31.0); ABG pH (ARTERIAL) 7.432 UNITS (7.350-7.450)
[2016-09-12 08:17] LABS: ALBUMIN/GLOBULIN RATIO 0.37 (1.00-1.93); ALKALINE PHOSPHATASE 153 U/L (45-117); ALT/SGPT 19 U/L (12-78); ANION GAP 8 MEQ/L (8-16); AST/SGOT 30 U/L (15-37); BILIRUBIN,TOTAL 2.1 MG/DL (0.2-1.0); BLOOD UREA NITROGEN 33 MG/DL (7-18); CALCIUM LEVEL 6.9 MG/DL (8.8-10.2); CARBON DIOXIDE LEVEL 26 MEQ/L (21-32); CHLORIDE LEVEL 106 MEQ/L (98-107); CREATININE FOR GFR 1.17 MG/DL (0.70-1.30); GLOMERULAR FILTRATION RATE > 60.0 (>49); GLUCOSE, FASTING 92 MG/DL (80-110); MAGNESIUM LEVEL 2.2 MG/DL (1.8-2.4); POTASSIUM SERUM 3.8 MEQ/L (3.5-5.1); SODIUM LEVEL 140 MEQ/L (136-145); TOTAL PROTEIN 3.7 GM/DL (6.4-8.2)
[2016-09-12 08:22] LABS: MEAN CORPUSCULAR HEMOGLOBIN 29.8 pg (27.0-33.0); MEAN CORPUSCULAR HGB CONC 32.6 g/dl (32.0-36.5); MEAN CORPUSCULAR VOLUME 91.6 fl (80.0-96.0); PLATELET COUNT, AUTOMATED 201 k/mm3 (150-450); WHITE BLOOD COUNT 22.9 K/mm3 (4.0-10.0)
[2016-09-12] MEDS: PANTOPRAZOLE 40MG INJ (PROTONIX) (C9113) IV SCH (08:27)
[2016-09-12] MEDS: LACOSAMIDE 10MG/ML 20ML VIAL (VIMPAT) (C9254) IV SCH ×2 (08:27→20:36)
[2016-09-12] MEDS: VALPROIC ACID SYRUP 250 MG/5 ML UDC PO SCH ×3 (08:28→20:39)
[2016-09-12] MEDS: SENOKOT S TAB PO SCH ×2 (08:29→20:38)
[2016-09-12] MEDS: levETIRAcetam INJection 500 MG in D5W MINI-BAG PLUS 100 ML IV SCH ×2 (08:29→20:37)
[2016-09-12] MEDS: NYSTATIN 100,000 UNITS/GM TOPICAL PWD 15 GM TOP SCH ×2 (08:29→20:40)
[2016-09-12 08:50] LABS: ANISOCYTOSIS 1+
--- NOTE | 2016-09-12 09:52 | REP ---
REASON: Respiratory failure. COMPARISON: Multiples, the latest yesterday at 9:03 a.m. The technique utilized in obtaining the radiograph has magnified the cardiac silhouette and accentuated the interstitial markings. The tubes are unchanged. The lung modi are unchanged. The cardiomediastinal silhouette is unchanged. IMPRESSION: Interstitial edema, unchanged from the prior exam. Signed by Manny Pérez DO 09/12/2016 11:55 A
[2016-09-12] MEDS: metroNIDAZOLE 500 MG in APPROPRIATE DILUENT 1 EA IV SCH ×2 (11:12→17:45)
--- NOTE | 2016-09-12 12:47 | CCN ---
DATE: 09/12/2016 Critical care time was 45 minutes. This excludes all procedures. At bedside, patient was awake during his sedation vacation. I placed him on pressure support ventilation of 5/5 for a spontaneous breathing trial. He did well for an hour. Will attempt extubation this morning. He continues to have low grade fevers. His white count did go up to 22 today. He has been on 9 days of antibiotics. Abdominal CT yesterday suggested colitis. I am concerned for the possibility of C. Difficile. I started Flagyl, obtained C. difficile cultures today. I have also obtained fungal cultures due to his recent bowel procedure. PHYSICAL EXAMINATION: Temperature is 101.1, pulse is 92, respiratory rate is 25, blood pressure is 93/51 with a mean arterial pressure is 65, oxygen saturations is 97% on 0.30 FiO2. Intake and output 2967 in, 3140 out, net negative 173 mL. GENERAL: The patient is awake, on mechanical ventilation, does not follow commands but not sure if he does at baseline. HEENT: Sclerae clear and anicteric. Pupils equal and reactive to light. Mucous membranes are moist without lesions. Tongue is midline. NECK: Supple. No tracheal deviation or mass. LYMPH: No cervical, supraclavicular, or axillary adenopathy. There is a right IJ in place without surrounding erythema or exudate. PULMONARY: Clear to auscultation without rales, rhonchi or wheezes. No accessory muscle use. ABDOMEN: Soft, nontender, nondistended. No discernible hepatosplenomegaly. EXTREMITIES: No significant edema. SKIN: No rashes, jaundice or bruising. Laboratory evaluation shows a white count up to 22.9, hemoglobin is down to 8.9 with a hematocrit of 27.4, platelet count of 201 with a neutrophilia of 90.5. Sodium is 140, potassium 3.8, chloride 106, bicarb of 26 with a BUN of 33, creatinine 1.17, glucose is 92. The patient is on TPN. Calcium is 9.90, total bilirubin 2.1, albumin 1.0. Abdominal CT report reviewed from yesterday. Some suggestion of small bowel obstruction, however patient is having stool output when examined at bedside. There is evidence of diffuse colitis. Arterial blood gas this morning shows a pH of 7.43, pCO2 of 36, and a PaO2 of 52 on 0.30 FiO2. Sputum culture from 09/07 shows Enterobacter which is sensitive to Zosyn and blood cultures so far have had no growth times six separate cultures. I am sure that some of these cultures were drawn from the central line. Chest x-ray shows some perihilar pulmonary edema with some cephalization. No significant infiltrate. Low lung volumes. No evidence of effusion or pneumothorax. 1. Respiratory failure secondary to bowel ischemia and surgery. The patient had postop pulmonary edema. It appears that the patient is well compensated and has passed his spontaneous breathing trial. Will attempt extubation today. 2. Leukocytosis. I question the possibility of C. Difficile. I have started Flagyl and obtained stool culture. I have also ordered cultures to look for fungemia. At this point in time there is no other source of bacterial infection. The patient remains on Zosyn. Critical care time as mentioned above. This excludes all procedures.
[2016-09-12] MEDS: SODIUM CHLORIDE 0.9% INJ 10 ML SYR IV PRN (15:24)
[2016-09-12] MEDS ORDERED: AMIODARONE HCL 150 MG in APPROPRIATE DILUENT 1 EA IV STA ×2 (17:35→18:12)
[2016-09-12] MEDS ORDERED: [UNRECOGNIZED DRUG - OTHER] IV SCH ×10 (18:00)
[2016-09-12] MEDS ORDERED: FAT EMULSION IV 20% 500 ML IV SCH (18:00)
[2016-09-12] MEDS ORDERED: SODIUM CHLORIDE IV SCH ×10 (18:00)
[2016-09-12] MEDS ORDERED: SODIUM ACETATE IV SCH ×10 (18:00)
--- NOTE | 2016-09-12 18:04 | IPN ---
DATE: 09/12/2016 SUBJECTIVE: Mr. Flores continues to do very well. He was extubated this morning by Dr. Johnson. He complains of some abdominal pain. LABORATORY DATA: His white count is elevated today at 22.9, hemoglobin 8.9, hematocrit 27.4, platelets 201, 78% neutrophils, 5% lymphocytes, 5% monocytes with 4% metamyelocytes and 8% myelocytes. Sodium 140, potassium 3.8, chloride 106, bicarb 26, BUN 33, creatinine 1.17, glucose 92, calcium 6.9, magnesium 2.2, total bilirubin 2.1. MICROBIOLOGY: Clostridium (C.) difficile was done this morning and was negative. Fungal smear and culture from the port were drawn and are pending. Blood cultures on 09/10 two sets from the port and two peripheral were negative. IMAGING: CT of the abdomen done on 09/11 shows a trace amount of free pelvic fluid, Tai catheter in the bladder, multiple fractures, ileus versus small bowel/ colitis. Chest x-ray shows interstitial edema, unchanged from prior exam. MEDICATIONS: Zosyn currently day eight, and metronidazole started today. PHYSICAL EXAMINATION: VITAL SIGNS: On physical exam, temperature is 100.5, pulse 94, blood pressure 130/70, oxygen saturation 97% on eight 8 liters mask. HEART: Normal S1, S2, tachycardiac. LUNGS: Diminished at bases but clear. ABDOMEN: Soft, tender with some periumbilical, where the suture line is erythema on the upper incision site. Stoma is swollen, edematous with watery stool in the bag. EXTREMITIES: With +2 pitting edema. IMPRESSION: 1. Respiratory failure secondary to bowel ischemia and surgery. The patient appears to be doing well, has been extubated. Sputum culture had Enterobacter although it was very few on cultures. He is currently on Zosyn. He is status post bronchoscopy for mucous plugging, doing well. 2. Leukocytosis. Stool for C. difficile was negative. I could discontinue IV Flagyl. I suspect leukocytosis is probably reactive as there are metamyelocytes and myelocytes and the patient is clinically improving. 3. Bowel obstruction with ileus. The patient has diminished bowel sounds and is on total parenteral nutrition (TPN). Agree with fungal culture. PLAN If the patient has worsening fever or leukocytosis, may consider adding antifungal with fluconazole 400 mg IV. MTDD
--- NOTE | 2016-09-12 19:24 | IPN ---
DATE: 09/11/2016 The patient continues to have low grade fevers, 100.[address] abdomen and pelvis on 09/11/2016 suggests ileus versus small bowel obstruction, infectious versus ischemic colitis, free intraperitoneal air consistent with recent surgery small bowel on the right. Generalized anasarca, bilateral effusion. Bibasilar pneumonia cannot be ruled out. The patient had an episode of supraventricular tachycardia (SVT) versus uncontrolled atrial flutter yesterday. Ventricular rate of 166, given one dose of intravenous amiodarone. Blood pressure at that time was about 110 to 117. The patient remains anasarcic, still critically ill and vented. No tolerating any tube feedings with increased output via his drain, out 490 overnight and 155 this morning. Gastric drainage around 200 to 225 yesterday, 100 today. VITAL SIGNS: Temperature T-max 100.4, current temperature 100.1, pulse 89, respiratory 20, blood pressure 93/51, 97% on FiO2 30% ventilator. Input: 2967, output 3140. Negative 172.6. EUSEBIA drain 490 with residual 225, urine output 1825. Current weight is 96.7 kg. Admission weight of 87 kg. GENERAL: The patient is sedated. Intubated. Central line looks clean. No jugular venous distention or thyromegaly. Tai in place. HEENT: Endotracheal tube. LUNGS: Diminished. HEART: S1, S2. Sinus tachycardia. ABDOMEN: Soft, midline scars and leticia with serous drainage. EUSEBIA drain. Serous drainage colostomy with edema in left lower quadrant. Decreased bowel sounds. EXTREMITIES: 2+ pitting edema. Scrotal edema. LABORATORY DATA: Pending. MICROBIOLOGY: Sputum culture: Enterobacter. CT abdomen and pelvis: Colitis, infectious versus ischemic ileus versus small bowel obstruction, bibasilar pneumonia cannot be ruled out with increased bilateral pleural effusion. ASSESSMENT AND PLAN: This is a 65-year-old male resident of [facility]. History of seizures, osteoporosis, benign prostatic hypertrophy (BPH), admitted due to complaint of nausea, vomiting, abdominal distention and found to have an incarcerated hernia with ischemic bowel. Underwent resection and primary anastomosis 09/04 with decompensated noncardiogenic pulmonary edema requiring intubation, bronchoscopy, sputum only showed Enterobacter cloacae treated with vancomycin and Zosyn initially. Vancomycin has been discontinued as patient with adequate coverage for Enterobacter. He continues to have recurrent fevers. Blood cultures remain negative despite being on TPN, at risk for candidemia. No fungal infection has been noted. Repeat CT abdomen and pelvis essentially unchanged aside from free air consistent with recent surgery. The patient is still continued on Zosyn for bilateral pneumonia. He developed arrhythmia, initially felt to be supraventricular tachycardia (SVT). Given adenosine, no improvement. Found to have atrial flutter, given two doses of intravenous amiodarone, currently sinus rhythm. He is currently on vasopressors. CURRENT ISSUES: 1. Ischemic bowel secondary to incarcerated hernia, requiring emergent resection with primary anastomosis 09/04/2016, complicated by respiratory failure due to noncardiogenic pulmonary edema. Mucus plugging, underwent bronchoscopy showing Enterobacter cloacae with persistent recurrent fevers, currently on Zosyn, previously been on vancomycin as well. Post operative management per primary team, Dr. Ariel Ackerman. No abscess noted on repeat CT. 2. Recurrent fevers. Enterobacter in sputum. Possible bilateral lower lobe pneumonia. At this time, the patient is still continued on Zosyn per Dr. Dale. No changes in antibiotics. His blood cultures have remained negative and CT abdomen has remained unchanged. He remains critically ill, no other signs of infection. No cellulitis. 3. Respiratory failure secondary to noncardiogenic pulmonary edema. He remains in positive fluid balance. Systolic pressure is 90-93 mmHg, unable to give lasix for fluid overload due to low blood pressure. 4. Atrial flutter. Per Dr. Barron, as needed IV amiodarone for now due to decreased absorption and increase in residual. Tube feedings have been discontinued. Currently back on TPN. 5. History of seizure disorder. On IV levetiracetam and Vimpat. 6. Normocytic anemia. Status post 5 units red blood cells (RBC) and 6 units fresh frozen plasma (FFP). 7. Thrombocytopenia, resolved. Initially due to disseminated intravascular coagulation (DIC) from septic shock. 8. Gastrointestinal (GI) prophylaxis with Protonix. 9. Nutrition. The patient did not tolerate tube feedings. Resume TPN through primary service. [facility]
[2016-09-12] MEDS: TAMSULOSIN 0.4 MG CAP PO SCH (20:38)
[2016-09-12] MEDS: oxyBUTYnin 5 MG TAB PO SCH (20:38)
[2016-09-12] MEDS: LATANOPROST 0.005% OPHTH SOLN 2.5 ML OU SCH (20:40)
[2016-09-12] MEDS: ACETAMINOPHEN 325 MG SUPP PR PRN (21:06)
[2016-09-12] MEDS ORDERED: AMIODARONE HCL 360 MG in APPROPRIATE DILUENT 1 EA IV SCH (23:45)
[2016-09-12] MEDS ORDERED: AMIODARONE HCL 360 MG/200 ML PREMIXED BAG (NEXTERONE) As Ordered ONE (23:51)
[2016-09-13] VITALS (40 sets, daily range): BP systolic 118–152; BP diastolic 56–94; O2SAT 94–95
[2016-09-13] MEDS: metroNIDAZOLE 500 MG in APPROPRIATE DILUENT 1 EA IV SCH ×3 (01:09→17:27)
[2016-09-13] MEDS: PIPERACILLIN/TAZOBACTAM SOD 3.375 GM in D5W MINI-BAG PLUS 50 ML IV SCH ×3 (01:10→17:29)
[2016-09-13] MEDS: SLF 3 ML SYR IV SCH (02:11)
[2016-09-13] MEDS: NYSTATIN 500,000 U/5 ML SUSP UDC SS SCH ×4 (05:36→23:49)
[2016-09-13] MEDS: SODIUM CHLORIDE 0.9% INJ 10 ML SYR IV SCH ×3 (05:37→21:17)
[2016-09-13] MEDS: HEPARIN SOD (PORCINE) 5000 UNITS/ML VIAL SC SCH ×3 (05:42→21:14)
[2016-09-13 05:43] LABS: ABG BASE EXCESS 0.4 (-2.0-2.0); ABG HCO3 24.4 MEQ/L (22.0-26.0); ABG PARTIAL PRESSURE CO2 37.1 mmHg (35.0-45.0); ABG STANDARD HCO3 24.7 MEQ/L (22.0-26.0); ABG TOTAL CO2 25.5 MEQ/L (23.0-31.0); ABG pH (ARTERIAL) 7.436 UNITS (7.350-7.450)
[2016-09-13 05:53] LABS: MEAN CORPUSCULAR HEMOGLOBIN 30.2 pg (27.0-33.0); MEAN CORPUSCULAR HGB CONC 32.5 g/dl (32.0-36.5); MEAN CORPUSCULAR VOLUME 92.9 fl (80.0-96.0); PLATELET COUNT, AUTOMATED 278 k/mm3 (150-450); RED CELL DISTRIBUTION WIDTH 14.9 % (11.5-14.5); WHITE BLOOD COUNT 26.3 K/mm3 (4.0-10.0)
[2016-09-13 06:20] LABS: ALBUMIN 1.1 GM/DL (3.2-5.2); ALBUMIN/GLOBULIN RATIO 0.32 (1.00-1.93); ALKALINE PHOSPHATASE 186 U/L (45-117); ALT/SGPT 23 U/L (12-78); ANION GAP 9 MEQ/L (8-16); AST/SGOT 39 U/L (15-37); BLOOD UREA NITROGEN 30 MG/DL (7-18); CARBON DIOXIDE LEVEL 25 MEQ/L (21-32); CHLORIDE LEVEL 108 MEQ/L (98-107); CREATININE FOR GFR 1.03 MG/DL (0.70-1.30); GLOMERULAR FILTRATION RATE > 60.0 (>49); GLUCOSE, FASTING 112 MG/DL (80-110); MAGNESIUM LEVEL 2.3 MG/DL (1.8-2.4); POTASSIUM SERUM 3.9 MEQ/L (3.5-5.1); SODIUM LEVEL 142 MEQ/L (136-145); TOTAL PROTEIN 4.5 GM/DL (6.4-8.2)
[2016-09-13 06:59] LABS: BANDS 5 % (< 11)
[2016-09-13 07:00] LABS: ANISOCYTOSIS 1+; MICROCYTOSIS 1+; TOXIC GRANULATION 1+
[2016-09-13] MEDS ORDERED: FLUCONAZOLE 400 MG in APPROPRIATE DILUENT 1 EA IV SCH (07:15)
[2016-09-13] MEDS ORDERED: FUROSEMIDE 100 MG/10 ML VIAL (J1940) IV ONE (07:15)
[2016-09-13 07:39] LABS: REASON FOR REVIEW COMPREHENSIVE REVIEW
[2016-09-13] MEDS: LEVALBUTEROL 1.25 MG/0.5 ML CONCENTRATE NEB INH SCH ×3 (08:00→21:06)
--- NOTE | 2016-09-13 08:22 | REP ---
CHEST, ONE VIEW: HISTORY: Shortness of breath. COMPARISON: 09/12/2016 Patchy densities are present in the lungs, consistent with bilateral infiltrates or edema that are increased compared to the previous study. The heart is normal in size. The pulmonary vasculature is obscured by the density in the lungs. IMPRESSION: Bilateral infiltrates or edema, increased compared to the previous study. Signed by David Jimenez MD 09/13/2016 09:02 A
[2016-09-13 08:39] LABS: ERYTHROCYTE SEDIMENTATION RATE 81 mm/hr (0-20)
[2016-09-13] MEDS: VALPROIC ACID SYRUP 250 MG/5 ML UDC PO SCH ×3 (09:07→21:19)
[2016-09-13] MEDS: FLUCONAZOLE 400 MG in APPROPRIATE DILUENT 1 EA IV SCH (09:07)
[2016-09-13] MEDS: LACOSAMIDE 10MG/ML 20ML VIAL (VIMPAT) (C9254) IV SCH ×2 (09:08→21:17)
[2016-09-13] MEDS: levETIRAcetam INJection 500 MG in D5W MINI-BAG PLUS 100 ML IV SCH ×2 (09:08→21:13)
[2016-09-13] MEDS: SENOKOT S TAB PO SCH (09:08)
[2016-09-13] MEDS: NYSTATIN 100,000 UNITS/GM TOPICAL PWD 15 GM TOP SCH ×2 (09:09→21:13)
[2016-09-13] MEDS: PANTOPRAZOLE 40MG INJ (PROTONIX) (C9113) IV SCH (09:10)
--- NOTE | 2016-09-13 10:26 | CCN ---
DATE OF VISIT: 09/13/2016 I again attended Mr. Flores. He was extubated yesterday. He remains on aerosol facemask with varying levels of FiO2. He had some difficulties through the night with increased secretions. He was able to suctioned clear. He has received diuretics this morning. Current oxygen saturation 97% on 80% aerosol facemask. Maximum temperature (Tmax) overnight 100.4. Blood pressure 120-150s. Heart rate 100-150. He still has episodes of supraventricular tachycardia (SVT). Respiratory rate generally in the 20s without accessory muscle use. Intake and output to midnight to midnight 2175 mL in with 2700 mL out. Most recent laboratory show a white blood cell count of 26.3, hemoglobin 9.9, platelet count 270,000, 75% segmented neutrophils, 5% bands. Sodium 142, potassium 3.9, chloride 108, CO2 25, BUN 30, creatinine 1.03. Blood gas done this morning on an unknown FiO2 shows pH of 7.436, pCO2 of 37.1 and a pO2 of 67, 93% saturation. Again, this was done on an aerosol facemask. Chest x-ray shows poor inspiratory effort. Vascular crowding but again markedly suboptimal inspiratory effort. On exam, he is awake and alert. There is intermittent vocalization. Pupils do react. Sclerae are clear. Trachea is in the midline. He has reasonable cough. Chest currently is fairly clear anteriorly. There are rare rhonchi that clear with cough. He does have dependent crackles. Breath sounds diminished at the extreme bases. Cardiac exam currently is mildly tachycardic but regular. Peripheral pulses palpable. Edema is unchanged. Abdomen shows his colostomy is pink and appears to be working. Dressings and drains are intact. Extremities show no cyanosis or clubbing. Edema is without change, is most consistent with anasarca. Neurologically as outlined above. IMPRESSION: 1. Hypoxemic, multifactorial. 2. Pulmonary edema. 3. Sputum with Enterobacter. 4. Pre-existing significant mental retardation. 5. Ischemic bowel status post recent resection. 6. Question of colitis by CT scan. 7. Supraventricular tachycardia, question atrial fibrillation/flutter. I had a long discussion this morning with cardiology. It appears most reasonable that his episodes more likely a true SVT most likely atrial flutter. He is less significant volume overloaded, but given the fact that his albumin is 1.1, it is unlikely that we will ever achieve complete resolution of his diffuse edema until his nutritional status is improved. He remains on multiple antibiotics and antifungals. Infectious disease is involved in his care. At this point, his respiratory status is reasonable and he has required varying amounts of FiO2. We will continue in that regard. We will help him as best we can with pulmonary toilet. My hopes is that we can avoid re-intubation as if we do then most likely it would make more sense to proceed with early tracheostomy to assist him with secretion clearance. We will proceed as outlined above. Further recommendations will be made in the progress records as new information becomes available.
--- NOTE | 2016-09-13 10:33 | IPN ---
DATE: 09/13/2016 I was called repeatedly because Mr. Flores kept having episodes of narrow complex tachycardia with typical heart rate around 165 beats per minute. Yesterday, he got total two doses of amiodarone IV 150 mg and then eventually was started on amiodarone drip at 0.5 mg per minute. It looks like this in the infusion was completed. There have not been any additional episodes. He was otherwise extubated yesterday. It looks like his nasogastric (NG) tube feeding is not going very well. He continues to be with significantly altered mental status. Vital signs this morning, blood pressure 143/60, heart rate is low 100s. He is afebrile this morning. Saturation is low 90s on high-flow oxygen by mask. Fluid balance yesterday was slightly negative. Weight is documented at 98. He is barely arousable. I was not able to establish any meaningful communication with him. He is diffusely edematous. Lungs sound reasonably clear though with only occasional crackle. Heart exam reveals regular tachycardia without murmur or gallop. Abdomen is distended but soft. Bowel sounds are present. Laboratory [facility]: Potassium 3.9, BUN 30, creatinine 1, glucose 112, magnesium 2.3. CRP is 21. BNP is 1800 and albumin is 1.1. Hemoglobin is 9.9. WBC count is 26,000 and differential there is 75% neutrophils and 5% bands. ASSESSMENT AND PLAN: Mr. Cooley is a 65-year-old man who is a [facility] ([facility]) resident for apparently mild mental retardation. He presented with necrotic bowel, underwent resection. He has somewhat bumpy postoperative course. I was asked to see him because of recurrent episodes of narrow complex tachycardia, which most likely represents atrial flutter or ectopic atrial tachycardia is in differential. I still believe that amiodarone is of drug of choice. I initially was hopeful that we will avoid chronic administration, but he continues to have recurrent episodes and consequently I will complete intravenous loading. I am not convinced that his gastrointestinal (GI) tract is reliably absorbing enough that we can provide amiodarone through his NG tube or by mouth. We will complete the loading protocol with infusion for next 18 hours and then hopefully the shape of GI tract will improve sufficiently to provide the medication this route. I have not been involved in managing other aspects of his care. Even though his brain natriuretic peptide (BNP) is very high, he has preserved LV systolic function and a lot of it is likely related to severe hypoalbuminemia.
[2016-09-13] MEDS: AMIODARONE HCL 360 MG in APPROPRIATE DILUENT 1 EA IV SCH ×2 (10:34→17:57)
[2016-09-13] MEDS: FUROSEMIDE 40 MG/4 ML VIAL (J1940) IV SCH ×3 (12:33→23:50)
--- NOTE | 2016-09-13 13:29 | IPN ---
DATE: 09/13/2016 The patient is seen and examined at the bedside. Chart has been reviewed. The patient was extubated yesterday with respiratory distress, currently 80% FiO2 on high flow mask and is saturating 88 to 92%. He developed worsening tachyarrhythmia yesterday. Despite two doses of IV amiodarone, the patient continued to have uncontrolled ventricular rate requiring amiodarone intravenous drip. The patient appeared to be fluid overloaded with repeat x-ray showing pulmonary edema and bilateral infiltrates, received one 60 mg Lasix this morning. Diuresed about 2.7 liters today. Currently at -2320. The patient had a maximum temperature (t-max) of 101.1 despite IV Zosyn. Blood cultures remain negative so far. Urinalysis is pending. Diflucan has been added. PHYSICAL EXAMINATION: VITAL SIGNS: Maximum temperature (t-max) of 101.1, current temperature 99.9, pulse 108, respiratory 20, blood pressure 143/64, 92% on high flow mask, 15 liters, FiO2 of 80% ventilator. Input and output: Input 2175 and output 2700. Negative 525 yesterday. Input today is 425, output 2745, negative 2320. Current weight is 98 kg. Previous weight 96.7 kg. GENERAL: The patient is in respiratory distress. Orogastric tube. The patient is lethargic. Does not respond to commands. Barely opens his eyes. LUNGS: Diminished. Fine crackles at the bases. HEART: S1, S2. Tachycardic. ABDOMEN: Distended, soft. Positive bowel sounds. Left sided ostomy. Midline scars and leticia with serous drainage. EXTREMITIES: Scrotal edema. Stage 1 ulcer in left anterior thigh. 2+ pitting edema in bilateral lower extremities. Anasarca. Ecchymotic second toe on the left foot. Ecchymosis on the right big toe. Ecchymosis on the right foot. LABORATORY DATA: White count 26.3, hemoglobin 9.9, hematocrit 30, platelet count 278. Sodium 142, potassium 3.9, chloride 108, bicarbonate 25, BUN 30, creatinine 1.03, glucose of 112, troponin 0.05, CK MB 4.6, total CK , BNP 1790, albumin 1.1. MICROBIOLOGY: Reviewed. ASSESSMENT AND PLAN: This is a 65-year-old male resident of [facility] ([facility]) for mental retardation, history of seizures, osteoporosis, benign prostatic hypertrophy (BPH), admitted due to complaint of nausea, vomiting, abdominal distention and found to have an incarcerated hernia with ischemic bowel. Underwent resection and primary anastomosis 09/04/2016 with decompensated noncardiogenic pulmonary edema, postoperative hypothermia requiring intubation, bronchoscopy. Sputum grew out Enterobacter. Treated with vancomycin and Zosyn initially. Vancomycin has been discontinued as patient had adequate coverage for Enterobacter. The patient developed supraventricular tachycardia (SVT) and initially given adenosine with no response. Currently being treated for atrial flutter, which appears to be refractory to boluses of IV amiodarone. Currently on IV maintenance therapy. The patient has been on TPN, at risk for candidemia with current fevers. Blood cultures remain negative. Repeat CT of the abdomen and pelvis unchanged aside from free air consistent with recent surgery. Despite full support, the patient continues to have recurrent fevers and worsening white count. He has been extubated yesterday and has been off of vasopressor therapy, as he developed noncardiogenic pulmonary edema, most likely secondary to severe protein calorie malnutrition with albumin of 1.1 and on TPN. CURRENT ISSUES: 1. Ischemic bowel secondary to incarcerated hernia, requiring emergent resection with primary anastomosis 09/04/2016, complicated by respiratory failure, hypothermia and severe sepsis requiring vasopressors, all of which have resolved. He has been extubated and off vasopressor. He has episodes of mucus plugging. Underwent bronchoscopy and treatment for pneumonia with Enterobacter in the sputum. Vancomycin has been discontinued. Currently still on Zosyn. Postoperative management per primary team, Dr. Ackerman. No abscess noted on repeat CT of the abdomen. 2. Recurrent fevers. Enterobacter in sputum. Treated for pneumonia with vancomycin, Zosyn. Still on Zosyn per Dr. Dale. No changes in antibiotics. Blood cultures remain negative. CT of the abdomen and pelvis remain negative aside from postoperative free air, consistent with recent surgery. Due to worsening white count, patient has been started on IV Diflucan. He remains critically ill. No other signs of infection or cellulitis. 3. Respiratory failure secondary to noncardiogenic pulmonary edema. Anasarca with severe protein calorie malnutrition. Albumin level 1.1. At this time, the patient has been extubated, but is around 80% FiO2 currently. He is being diuresed with intravenous Lasix to keep a negative balance and fluid restriction if possible. 4. Noncardiogenic pulmonary edema, status post extubation. Currently on intravenous Lasix. Fluid restriction. If his blood pressure permits, we will continue with net negative diuresis. 5. Atrial flutter. Currently on IV amiodarone drip. Dr. Barron has been consulted and currently managing. 6. History of seizure disorder. On IV Keppra and Vimpat. 7. History of severe protein calorie malnutrition with albumin level of 1.1. Nutrition consulted. Currently on TPN. Unable to absorb with significant residual, tube feedings have been discontinued. 8. Stage II ulcer on left anterior thigh. 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
[2016-09-13] MEDS ORDERED: GASTROGRAFIN SOLUTION 30ML (Q9963) PO ONE (17:55)
[2016-09-13] MEDS ORDERED: AMINO AC IV SCH (18:00)
[2016-09-13] MEDS ORDERED: CALC IV SCH (18:00)
[2016-09-13] MEDS ORDERED: DEX IV SCH (18:00)
[2016-09-13] MEDS ORDERED: ELECTROLYTE IV SCH (18:00)
[2016-09-13] MEDS ORDERED: FAT EMULSION IV 20% 500 ML IV SCH (18:00)
[2016-09-13] MEDS ORDERED: POTASSIUM CHLORIDE IV SCH (18:00)
[2016-09-13] MEDS ORDERED: GASTROGRAFIN SOLUTION 30ML PO ONE (18:25)
[2016-09-13 18:37] LABS: ANION GAP 7 MEQ/L (8-16); BLOOD UREA NITROGEN 31 MG/DL (7-18); CALCIUM LEVEL 7.3 MG/DL (8.8-10.2); CARBON DIOXIDE LEVEL 29 MEQ/L (21-32); CHLORIDE LEVEL 107 MEQ/L (98-107); CREATININE FOR GFR 1.13 MG/DL (0.70-1.30); GLOMERULAR FILTRATION RATE > 60.0 (>49); GLUCOSE, FASTING 119 MG/DL (80-110); MAGNESIUM LEVEL 2.1 MG/DL (1.8-2.4); POTASSIUM SERUM 3.5 MEQ/L (3.5-5.1); SODIUM LEVEL 143 MEQ/L (136-145)
[2016-09-13] MEDS ORDERED: METOPROLOL 5 MG/5 ML VIAL IV STA ×2 (19:37→20:08)
[2016-09-13] MEDS: ACETAMINOPHEN 325 MG SUPP PR PRN (19:48)
[2016-09-13] MEDS: LATANOPROST 0.005% OPHTH SOLN 2.5 ML OU SCH (21:14)
[2016-09-13] MEDS: TAMSULOSIN 0.4 MG CAP PO SCH (21:19)
[2016-09-14] VITALS (28 sets, daily range): BP systolic 101–149; BP diastolic 53–76; O2SAT 95
[2016-09-14] MEDS ORDERED: ACETAMINOPHEN 325 MG/10.15 ML UDC GT PRN (00:45)
[2016-09-14] MEDS: LEVALBUTEROL 1.25 MG/0.5 ML CONCENTRATE NEB INH SCH ×4 (01:06→20:42)
[2016-09-14] MEDS: metroNIDAZOLE 500 MG in APPROPRIATE DILUENT 1 EA IV SCH ×3 (01:16→17:25)
[2016-09-14] MEDS: PIPERACILLIN/TAZOBACTAM SOD 3.375 GM in D5W MINI-BAG PLUS 50 ML IV SCH ×3 (02:22→17:41)
[2016-09-14] MEDS: AMIODARONE HCL 360 MG in APPROPRIATE DILUENT 1 EA IV SCH (02:57)
[2016-09-14] MEDS: METOPROLOL 5 MG/5 ML VIAL IV PRN ×2 (03:13→22:37)
[2016-09-14] MEDS ORDERED: METOPROLOL 5 MG/5 ML VIAL IV STA (03:57)
[2016-09-14 05:49] LABS: ALBUMIN 1.1 GM/DL (3.2-5.2); ALBUMIN/GLOBULIN RATIO 0.26 (1.00-1.93); ALKALINE PHOSPHATASE 179 U/L (45-117); ALT/SGPT 17 U/L (12-78); ANION GAP 8 MEQ/L (8-16); AST/SGOT 32 U/L (15-37); BILIRUBIN,TOTAL 1.9 MG/DL (0.2-1.0); BLOOD UREA NITROGEN 30 MG/DL (7-18); CALCIUM LEVEL 7.7 MG/DL (8.8-10.2); CARBON DIOXIDE LEVEL 29 MEQ/L (21-32); CHLORIDE LEVEL 104 MEQ/L (98-107); CREATININE FOR GFR 1.12 MG/DL (0.70-1.30); GLOMERULAR FILTRATION RATE > 60.0 (>49); GLUCOSE, FASTING 103 MG/DL (80-110); POTASSIUM SERUM 3.3 MEQ/L (3.5-5.1); SODIUM LEVEL 141 MEQ/L (136-145); TOTAL PROTEIN 5.3 GM/DL (6.4-8.2)
[2016-09-14] MEDS: HEPARIN SOD (PORCINE) 5000 UNITS/ML VIAL SC SCH ×3 (05:53→21:25)
[2016-09-14] MEDS: NYSTATIN 500,000 U/5 ML SUSP UDC SS SCH ×4 (05:53→23:48)
[2016-09-14] MEDS: FUROSEMIDE 40 MG/4 ML VIAL (J1940) IV SCH ×4 (05:54→23:48)
[2016-09-14] MEDS: SODIUM CHLORIDE 0.9% INJ 10 ML SYR IV SCH ×3 (05:54→21:27)
[2016-09-14 06:10] LABS: MEAN CORPUSCULAR HEMOGLOBIN 29.8 pg (27.0-33.0); MEAN CORPUSCULAR HGB CONC 32.4 g/dl (32.0-36.5); PLATELET COUNT, AUTOMATED 331 k/mm3 (150-450); WHITE BLOOD COUNT 25.8 K/mm3 (4.0-10.0)
[2016-09-14 06:17] LABS: ANISOCYTOSIS 1+; BANDS 3 % (< 11); EOSINOPHILS 1 % (0-5); HYPOCHROMASIA 1+; TOXIC VACUOLATION 1+
[2016-09-14 06:19] LABS: ABG BASE EXCESS 4.6 (-2.0-2.0); ABG HCO3 28.2 MEQ/L (22.0-26.0); ABG PARTIAL PRESSURE CO2 37.9 mmHg (35.0-45.0); ABG STANDARD HCO3 28.4 MEQ/L (22.0-26.0); ABG TOTAL CO2 29.3 MEQ/L (23.0-31.0); ABG pH (ARTERIAL) 7.489 UNITS (7.350-7.450)
[2016-09-14 06:22] LABS: ABG PARTIAL PRESSURE O2 48.3 mmHg (75.0-100.0)
[2016-09-14] MEDS ORDERED: KCL 20MEQ IN 100ML SWI (KRUN) 20 MEQ in APPROPRIATE DILUENT 1 EA IV ONE ×2 (07:00)
[2016-09-14] MEDS: FLUCONAZOLE 400 MG in APPROPRIATE DILUENT 1 EA IV SCH (07:48)
[2016-09-14] MEDS: VALPROIC ACID SYRUP 250 MG/5 ML UDC PO SCH ×3 (08:30→21:25)
[2016-09-14] MEDS: LACOSAMIDE 10MG/ML 20ML VIAL (VIMPAT) (C9254) IV SCH ×2 (08:31→21:25)
[2016-09-14] MEDS: levETIRAcetam INJection 500 MG in D5W MINI-BAG PLUS 100 ML IV SCH ×2 (08:31→21:24)
[2016-09-14] MEDS: PANTOPRAZOLE 40MG INJ (PROTONIX) (C9113) IV SCH (08:31)
[2016-09-14] MEDS: NYSTATIN 100,000 UNITS/GM TOPICAL PWD 15 GM TOP SCH ×2 (08:31→21:25)
--- NOTE | 2016-09-14 08:39 | IPN ---
DATE OF SERVICE: 09/14/2016 Patient seen and examined at the bedside. Chart has been reviewed. Yesterday, patient remained in atrial flutter despite a full course of intravenous (IV) amiodarone drip. He had received two doses of IV metoprolol due to heart rate greater than 120. Blood pressure is well maintained. He diuresed 8 liters out with IV fluids for his noncardiogenic pulmonary edema status post extubation. Patient is still not tolerating tube feedings and still on total parenteral nutrition (TPN). Per nursing, patient saturating at 87-94% on high flow mask. He does respond to his name but is not cooperative with examination as yet. He remains febrile with maximum temperature (Tmax) of 100.7. Central line appears to be erythematous. Blood cultures via the central line have no growth from 09/10/2016. Vital signs: Maximum temperature (Tmax) 100.7, current temperature 100.7, pulse 105, respiratory rate 30, blood pressure 128/71, 90% pulse oximetry on high flow mask 80% FiO2. Generally, patient is awake, alert, oriented to name. He opens his eyes but does not follow commands. Facemask. Right central line appears erythematous at the insertion site. Lungs: Clear in the upper lobes, some crackles bilateral bases. Heart: S1, S2, tachycardic. Abdomen is soft, nontender. Scrotal edema. Left-sided ostomy. Midline scars and leticia with serous drainage. Extremities: Stage 2 ulcer in left anterior thigh and left antecubital fossa with bandage. 2+ pitting edema bilateral lower extremities. Anasarca. Ecchymotic second toe on left foot. Ecchymotic big toe on the right foot. Input 2892, output 8140, negative 5248. Current weight is 88 kg. CBC: White count 25.8, hemoglobin 9.9, hematocrit 30, platelet count 331. Sodium 141, potassium 3.3, chloride 104, bicarbonate 29, BUN 30, creatinine 1.12, glucose of 103, calcium 7.7, magnesium of 2, total bilirubin 1.9, AST 32, ALT 17, alkaline phosphatase 179. BNP and cardiac markers are pending. 09/13/[address]: No official reading. ASSESSMENT AND PLAN: This is a 65-year-old male, [facility] ([facility]) resident for mental retardation, history of seizures, osteoporosis, BPH, admitted due to complaints of nausea, vomiting, abdominal distention and found to have an incarcerated hernia with an ischemic bowel, underwent resection and primary anastomosis 09/04/2016, was intubated due to postoperative hypothermia and respiratory distress, bronchoscopy, obtained a sputum that grew out Enterobacter. Patient had been on vancomycin and Zosyn. Vancomycin discontinued as patient had adequate coverage for Enterobacter. Patient developed tachyarrhythmia, initially given adenosine for possible supraventricular tachycardia (SVT), was found to be in persistent atrial flutter and despite multiple doses of intravenous amiodarone boluses patient was refractory and had to be placed on IV amiodarone maintenance therapy. Despite this, patient continued to have episodes of uncontrolled tachyarrhythmia and currently on IV Lopressor as needed for heart rate greater than 120. Blood pressure is well maintained. He has been extubated and developed noncardiogenic pulmonary edema and currently on IV Lasix for net negative diuresis. Patient continues to have recurrent fevers. Blood cultures have remained negative. Central line site appears to be erythematous. Current issues are as follows: 1. Ischemic bowel secondary to incarcerated hernia, requiring emergent resection and primary anastomosis 09/04/2016, complicated by postoperative hypothermia and severe sepsis requiring vasopressors, all of which have resolved. Patient was intubated and was extubated 2 days ago, off vasopressors. He had, had multiple episodes of mucus plugging and desaturations. Bronchoscopy yielded Enterobacter in the sputum treated with vancomycin and Zosyn, currently only on Zosyn, with postoperative fevers. Dr. Dale has been consulted. Recommended addition of Diflucan due to recurrent fevers and risk of candidemia from TPN. 2. Rule out line sepsis. Therefore, change IV site if possible via general surgery. 3. Acute hypoxic respiratory failure. Multifactorial secondary to sepsis, noncardiogenic pulmonary edema currently on IV net negative Lasix. Patient is saturating 88-92% on 80% FiO2 high flow mask. 4. Atrial flutter. Currently on IV metoprolol as needed for heart rate greater than 120. Patient is status post IV amiodarone drip with persistent refractory tachycardia. 5. History of seizure disorder. IV Keppra and Vimpat. 6. History of severe protein calorie malnutrition with albumin of 1.1. Currently on TPN. Unable to absorb due to significant residual tube feedings. 7. Stage II ulcer left anterior thigh, left antecubital fossa. Wound care consult.
--- NOTE | 2016-09-14 08:56 | REP ---
CT of the pelvis with bowel contrast: Comparison is a CT abdomen pelvis of 09/11/2016. There is a colostomy. Midline longitudinal skin leticia and a surgical drain are again noted. These findings are unchanged. There is diffuse circumferential edema in the subcutaneous fat compatible with anasarca. This is unchanged. The induration of the is a mesenteric fat noted previously is again identified but appears to have decreased. The bowel contrast is in distal small bowel loops and cecum but has not reached the descending colon or colostomy. The wall thickening of the descending colon and a small bowel identified previously has decreased. There are no focal fluid collections to suggest abscess. There are no lytic, blastic or destructive skeletal changes to suggest osteomyelitis. Impression: Decreased wall thickening of the small bowel and descending colon. No focal fluid collection to suggest abscess. Edema in the subcutaneous fat compatible with anasarca. Signed by Ariel Khan MD 09/14/2016 08:48 A
--- NOTE | 2016-09-14 09:57 | CCN ---
DATE OF VISIT: 09/14/2016 I again attended Mr. Flores. He is maintained on an aerosol facemask. He intermittently does have a cough generally efficient. Maximum temperature (Tmax) overnight 100.7. Blood pressure 101-130 systolic. Heart rate currently in the 90s with a sinus mechanism but he has had bursts again of supraventricular tachycardia (SVT)/atrial flutter. Intake and output midnight to midnight : 2892 mL in with 8140 mL out. Since midnight last night, he is already negative 2507 mL. Most recent laboratory show a white blood cell count of 25.8, 79% segmented neutrophils, 3% bands, hemoglobin 9.9 and platelet count 331,000. Sodium 141, potassium 3.3, chloride 104, CO2 29, BUN 30, creatinine 1.12. Blood gas done this morning on aerosol facemask shows pH 7.489, pCO2 37.9 and pO2 48 with saturation 85.2. Currently on aerosol facemask of 80%, his saturation is 97%. Chest x-ray again shows marginal inspiratory effort but does show less of an edematous pattern. On exam, he is awake. He does respond to stimuli. Pupils react. Trachea is in the midline. Membranes are moist. Chest shows symmetric expansion. Decreased breath sound intensity at the bases. There is some fine dependent crackles. There are some occasional large airway rhonchi. Generally these are in the posterior pharynx and do improve with cough and deep inspiration. Cardiac exam currently regular. Peripheral pulses palpable. Diffuse edema unchanged. Abdomen shows dressings and drains intact. Neurologically as outlined. IMPRESSION: 1. Hypoxemia, multifactorial. 2. Pulmonary edema. 3. Sputum with elevated white count. 4. Protein calorie malnutrition. 5. Mental retardation with seizure disorder. 6. Supraventricular tachycardia (SVT)/atrial flutter. 7. Status post laparotomy for ischemic bowel status post resection. 8. Previous colostomy. RECOMMENDATIONS: At this point, he is on broad spectrum antimicrobials. He is also on antifungals. We await the formal interpretation of his CT scan, and certainly he is one at risk for development of an abscess. Currently, he does intermittently clear his own secretions. His overall pulmonary edema is only minimally improved and will likely not considerably improve until he is able to achieve a better nutritional status. He is for the most part, however maintaining quite reasonable oxygenation status. From that standpoint, we will continue to support as needed. Further recommendations will be made in the progress record as new information becomes available.
[2016-09-14] MEDS ORDERED: AMIODARONE HCL 150 MG in APPROPRIATE DILUENT 1 EA IV ONE (10:30)
[2016-09-14] MEDS ORDERED: METOPROLOL 5 MG/5 ML VIAL IV ONE (10:30)
--- NOTE | 2016-09-14 10:37 | REP ---
PORTABLE CHEST, ONE VIEW: HISTORY: Respiratory failure. COMPARISON: 09/13/2016 Patchy densities are present in the lungs, consistent with bilateral infiltrates or edema that are unchanged compared to the previous study. The heart is normal in size. The pulmonary vasculature is obscured by the density in the lungs. IMPRESSION: Bilateral infiltrates or edema, unchanged compared to the previous study. Signed by David Jimenez MD 09/14/2016 10:40 A
[2016-09-14] MEDS: AMIODARONE 200 MG TAB (PACERONE) NG SCH ×2 (10:44→21:24)
--- NOTE | 2016-09-14 11:15 | IPN ---
DATE: 09/14/2016 Mr. Flores continues to have run of supraventricular tachycardia with fast ventricular response. Heart rate is variable from 140s to 170s. At night, I was called several times, and he received several doses of IV metoprolol which led to presybeterian of sinus rhythm. Unfortunately, shortly after I walked to intensive care unit (ICU) this morning, he had yet another relapse. Seems to be hemodynamically well tolerated in respect that he does not drop his blood pressure when the arrhythmia occurs. Will give him additional 5 mg of Lopressor and 150 mg of IV amiodarone. Otherwise, he continues to require a large oxygen supply by nasal cannula. It probably is mostly to do with upper airway mechanics and likely underlying interstitial edema. On physical exam, he is alert. He tries to talk and clearly understands but, unfortunately, his speech is garbled, and I really do not understand what he is trying to say. Also, appears very short of breath. He has a mask on his face that delivers 80% FiO2 of oxygen. His saturation varies from 90-199. He had maximum temperature (Tmax) 100.7 last night. His JVP does not look high. Lungs reveal occasional crackle but of overall good air movement. I do not appreciate any wheezing, upper airway sounds are noticeable though. Heart exam at the time of my exam reveals regular, very fast tachycardia. I do not appreciate any gallop, rub, or murmur. Abdomen: Has a dressing on the colostomy in left lower quadrant appears intact and pink. In the back, there is a small amount of loose brownish material. He has significant peripheral edema all the way to lower extremities to his abdomen and also upper extremities. His fluid balance yesterday was dramatically negative, approximately 5 liters. He made about 7-1/2 liters of urine. Laboratory-[facility], basic metabolic panel this morning; potassium 3.3, BUN 30, creatinine 1.1, GFR more than 60, bilirubin 1.9. BNP is 2700 and albumin is 1.1. CBC; WBC count 26,000 and differential 79 neutrophils and 3 lymphocytes, but there are also some immature cells, metamyelocytes, and myelocytes. ASSESSMENT AND PLAN: Mr. Flores is a 65-year-old man who presented with necrotic bowel and underwent surgery. In recovery period he continues to have problems. From my perspective the #1 is recurrent supraventricular tachycardia, which either represents atypical flutter or atrial tachycardia. It has been very resistant to treatment, and in spite of completing the full IV amiodarone load, he continues to have recurrent bouts. I will give him yet another 150 mg bolus of amiodarone and additional dose of metoprolol. I think it is likely that this will be successful in terminating the arrhythmia, but because he has daily recurrences, I am going to start him on amiodarone through the NG tube. Even though the absorption is not guaranteed, I think that it is necessary at least to attempt. Simutaneously, will be providing as needed metoprolol. I am still hopeful that once his condition improves that this will cease to be such a problem. As far as the hemodynamics are concerned, he certainly is volume overloaded, but I think that the high BNP reflects principally the presence of SVT that certainly impairs cardiac function. Also he has severe hypoalbuminemia and, consequently, to accomplish removal fluid is much harder, but I do want to hope that with ongoing diuretic use and both internal and parenteral feeding this will slowly improve. Will continue following the patient with you. EDSON
[2016-09-14] MEDS: ACETAMINOPHEN 325 MG/10.15 ML UDC GT PRN (12:12)
[2016-09-14] MEDS: HumaLOG INSULIN (NovoLOG) PER UNIT SC SCH ×2 (17:16→23:48)
[2016-09-14] MEDS ORDERED: FAT EMULSION IV 20% 500 ML IV SCH (18:00)
[2016-09-14] MEDS ORDERED: POTASSIUM CHLORIDE INJ 55.6 MEQ in AMINO AC/ELECTROLYTE/DEX/CALC 2,000 ML IV SCH (18:00)
[2016-09-14] MEDS: KCL 20MEQ IN 100ML SWI (KRUN) 20 MEQ in APPROPRIATE DILUENT 1 EA IV SCH ×4 (20:14→22:08)
[2016-09-14] MEDS: TAMSULOSIN 0.4 MG CAP PO SCH (21:24)
[2016-09-14] MEDS: LATANOPROST 0.005% OPHTH SOLN 2.5 ML OU SCH (21:25)
[2016-09-15] VITALS (24 sets, daily range): BP systolic 92–150; BP diastolic 57–74; O2SAT 94
[2016-09-15] MEDS: metroNIDAZOLE 500 MG in APPROPRIATE DILUENT 1 EA IV SCH ×2 (01:04→10:49)
[2016-09-15] MEDS: LEVALBUTEROL 1.25 MG/0.5 ML CONCENTRATE NEB INH SCH ×4 (01:49→19:28)
[2016-09-15] MEDS: PIPERACILLIN/TAZOBACTAM SOD 3.375 GM in D5W MINI-BAG PLUS 50 ML IV SCH ×4 (02:15→22:19)
[2016-09-15 05:40] LABS: MEAN CORPUSCULAR HEMOGLOBIN 29.4 pg (27.0-33.0); MEAN CORPUSCULAR HGB CONC 32.1 g/dl (32.0-36.5); MEAN CORPUSCULAR VOLUME 91.6 fl (80.0-96.0); PLATELET COUNT, AUTOMATED 386 k/mm3 (150-450); RED CELL DISTRIBUTION WIDTH 14.9 % (11.5-14.5); WHITE BLOOD COUNT 23.4 K/mm3 (4.0-10.0)
[2016-09-15 05:47] LABS: BLOOD UREA NITROGEN 31 MG/DL (7-18); CHLORIDE LEVEL 101 MEQ/L (98-107); CREATININE FOR GFR 1.15 MG/DL (0.70-1.30); GLOMERULAR FILTRATION RATE > 60.0 (>49); GLUCOSE, FASTING 108 MG/DL (80-110); POTASSIUM SERUM 3.3 MEQ/L (3.5-5.1); SODIUM LEVEL 141 MEQ/L (136-145)
[2016-09-15 05:48] LABS: ALBUMIN 1.1 GM/DL (3.2-5.2); ALBUMIN/GLOBULIN RATIO 0.26 (1.00-1.93); ALKALINE PHOSPHATASE 157 U/L (45-117); ALT/SGPT 19 U/L (12-78); ANION GAP 7 MEQ/L (8-16); AST/SGOT 25 U/L (15-37); BILIRUBIN,TOTAL 1.9 MG/DL (0.2-1.0); CALCIUM LEVEL 7.6 MG/DL (8.8-10.2); CARBON DIOXIDE LEVEL 33 MEQ/L (21-32); MAGNESIUM LEVEL 1.7 MG/DL (1.8-2.4); TOTAL PROTEIN 5.4 GM/DL (6.4-8.2)
[2016-09-15] MEDS: HEPARIN SOD (PORCINE) 5000 UNITS/ML VIAL SC SCH ×3 (06:01→22:19)
[2016-09-15] MEDS: FUROSEMIDE 40 MG/4 ML VIAL (J1940) IV SCH ×4 (06:01→23:53)
[2016-09-15] MEDS: HumaLOG INSULIN (NovoLOG) PER UNIT SC SCH ×2 (06:01→12:00)
[2016-09-15] MEDS: SODIUM CHLORIDE 0.9% INJ 10 ML SYR IV SCH ×3 (06:01→22:19)
[2016-09-15] MEDS: NYSTATIN 500,000 U/5 ML SUSP UDC SS SCH ×2 (06:02→12:54)
[2016-09-15 06:13] LABS: ABG BASE EXCESS 4.3 (-2.0-2.0); ABG HCO3 27.5 MEQ/L (22.0-26.0); ABG PARTIAL PRESSURE CO2 35.5 mmHg (35.0-45.0); ABG PARTIAL PRESSURE O2 67.4 mmHg (75.0-100.0); ABG STANDARD HCO3 28.3 MEQ/L (22.0-26.0); ABG TOTAL CO2 28.6 MEQ/L (23.0-31.0); ABG pH (ARTERIAL) 7.507 UNITS (7.350-7.450)
[2016-09-15 06:28] LABS: BANDS 2 % (< 11); EOSINOPHILS 2 % (0-5); NUCLEATED RED BLOOD CELL 1 % (0-0)
[2016-09-15 06:30] LABS: PLATELET CLUMPS SMALL AMT
[2016-09-15 06:31] LABS: ANISOCYTOSIS 1+; HYPOCHROMASIA 1+; TOXIC GRANULATION 1+
[2016-09-15] MEDS ORDERED: KCL 20MEQ IN 100ML SWI (KRUN) 20 MEQ in APPROPRIATE DILUENT 1 EA IV ONE ×2 (07:00)
[2016-09-15] MEDS ORDERED: MAG SULF 1GM/100ML (MAG RUN) 1 GM in APPROPRIATE DILUENT 1 EA IV ONE (07:00)
[2016-09-15] MEDS: FLUCONAZOLE 400 MG in APPROPRIATE DILUENT 1 EA IV SCH (07:46)
--- NOTE | 2016-09-15 08:14 | IPN ---
DATE: 09/15/2016 Mr. Flores has not had any significant events overnight. He fortunately did not have a relapse of his supraventricular tachycardia (SVT). He continues to diurese massively and it looks like his overall condition is slowly improving. Vital Signs: Blood pressure 131/58. Heart rate 110s. He is afebrile. Saturation 91% on 80% FiO2. His fluid balance yesterday was negative 4.5 liters. Weight is documented at 82.7 kg. He is alert. He appears oriented and answers simple questions. His jugular venous pulse (JVP) does not look high. Lungs are reasonably clear to auscultation with only occasional crackles. Heart exam reveals regular tachycardia. I do not appreciate gallop or murmur. Abdomen appears mildly edematous. There is a dressing. Bowel sounds are positive. I do not appreciate any guarding on a somewhat limited exam. He still has very prominent peripheral edema of both upper and lower extremities as well as dependent parts of his back and buttocks. Laboratory-[facility], hemoglobin 8.9, hematocrit 27, platelet count 386,000 and WBC count 23.4 thousand. Basic metabolic panel: Potassium 3.3, BUN 31, creatinine 1.1, glucose 108, albumin 1.1. ASSESSMENT AND PLAN: Mr. Quintero is a 65-year-old mildly mentally retarded gentleman who underwent surgery for necrotic bowel. In the postoperative period, he continues to have problems and I was called because of recurrent episodes of supraventricular tachycardia, most likely atypical atrial flutter or atrial tachycardia. I eventually decided to administer amiodarone as the alternative medications were not overly successful. At this point, he has been without arrhythmia for about 24 hours, but I intend to administer amiodarone in oral form at least a couple of weeks before attempting to discontinue the medication. He continues to be volume overloaded, but in my opinion diuresed a little too rapidly. Even though I have not been involved in managing his fluid status, I would recommend that the dose of diuretics is reduced so the diuresis is not as rapid. Otherwise, I do not have any new recommendations.
--- NOTE | 2016-09-15 08:25 | REP ---
Portable chest x-ray: Single semi-erect view. History: Shortness of breath. Comparison study September 14, 2016. Findings: The patient is rotated to the left for the current exposure. EKG monitoring electrodes are seen. Bilateral perihilar infiltrates persist more prominent in the upper lobes. The left hemidiaphragm is not well visualized question left pleural effusion. There are degenerative changes in the thoracic spine. A nasogastric tube is again seen entering the left upper quadrant of the abdomen. No new infiltrate. Signed by Damian Gee MD 09/15/2016 12:57 P
[2016-09-15] MEDS: AMIODARONE 200 MG TAB (PACERONE) NG SCH ×2 (09:03→20:26)
[2016-09-15] MEDS: levETIRAcetam INJection 500 MG in D5W MINI-BAG PLUS 100 ML IV SCH ×2 (09:03→20:25)
[2016-09-15] MEDS: POTASSIUM CHLORIDE 10% LIQ 20 MEQ/15 ML UDC PEG SCH ×2 (09:03→20:25)
[2016-09-15] MEDS: LACOSAMIDE 10MG/ML 20ML VIAL (VIMPAT) (C9254) IV SCH ×2 (09:03→20:26)
[2016-09-15] MEDS: VALPROIC ACID SYRUP 250 MG/5 ML UDC PO SCH ×3 (09:04→20:25)
[2016-09-15] MEDS: PANTOPRAZOLE 40MG INJ (PROTONIX) (C9113) IV SCH (09:04)
[2016-09-15] MEDS: NYSTATIN 100,000 UNITS/GM TOPICAL PWD 15 GM TOP SCH ×2 (09:04→20:26)
--- NOTE | 2016-09-15 09:43 | IPN ---
DATE: 09/15/2016 The patient seen and examined at the bedside. The chart has been reviewed. Overnight, the patient continues to be tachycardic currently on oral amiodarone via his nasal gastric tube. The patient has completed multiple doses of IV Lopressor and boluses of IV amiodarone drip. He continues to have a low grade temperature of 100.3 to 100.7 T-max of 100.7 yesterday. White count is decreasing to 23,000. Overnight, the patient continues to take his high-flow mask off. He is still requiring 80% of FiO2. Diuresing quite well with output of 7.9 liters last evening. He continues to have slurred speech, risk of aspiration. Still continued on total parenteral nutrition (TPN). T-max of 100.7, current temperature 98.7, pulse 116, respiratory rate 28, blood pressure 131/58, 91% high-flow mask at 80% FiO2. In general, the patient is awake, alert, oriented to person. He nodes to his name. Able to say his first name but with some inaudible responses. He minimally follows commands, but continues with garbled speech. HEENT: Slight erythema at the central line site on the right neck. Lungs have diminished breath sounds and bilateral crackles. No wheezing. Heart: S1, S2. Tachycardic. No murmurs, rubs or gallop. Abdomen: Left lower quadrant colostomy pink in color. Yellowish-brown stool noted. 3+ pitting edema. Multiple excoriations. Stables intact with serous drainage. Extremities: 2+ pitting edema with anasarca ecchymotic 2nd toe on the left and ecchymotic big toe on the right foot. Input and output: Input 3508, output 7910, negative 4402. Current weight is 82.7 kg with a peak weight of 99.2 kg. LAB DATA: White count 23,4, hemoglobin 8.9, hematocrit 27.7, platelet count 386. Sodium 141, potassium 3.6, chloride 101, bicarbonate 33, BUN 31, creatinine 1.15 , glucose 108, magnesium 1.7. BNP yesterday was 2700. Chest x-ray remains with bilateral infiltrates and pulmonary edema. ASSESSMENT/PLAN: This is a 65-year-old [facility] residence for mental retardation, seizure disorder, osteoporosis, benign prostatic hypertrophy, (BPH), who was admitted due to complaints of nausea, vomiting, abdominal distention and found to have incarcerated hernia with an ischemic bowel. He underwent resection with primary anastomosis on 09/04/2016. He was intubated due to respiratory distress post hypothermia. Was started on vancomycin and Zosyn for septic shock and Vasopressors. Bronchoscopy with sputum culture grew out Enterobacter. The patient was continued on vancomycin and Zosyn. He developed multiple episodes of supraventricular tachycardia (SVT). Initially given adenosine with no improvement. Found to have atrial flutter. Had multiple doses of IV amiodarone and Lopressor with no improvement and was placed on maintenance therapy with IV amiodarone for 18 hours with refractory SVT. Currently, on IV Lopressor and oral amiodarone management by Dr. Barron. During admission, he had recurrent fevers. Blood cultures remain negative. Repeat CT abdomen and pelvis appear unchanged aside from free air consistent with previous surgery. He has been extubated and has developed noncardiogenic pulmonary edema, anasarca secondary to severe protein calorie malnutrition with low albumin. He currently is on IV Lasix for net negative diuresis. Currently has the following issues: 1. Ischemic bowel secondary to incarcerated hernia requiring emergent resection and primary anastomosis 09/04/2016, complicated by postop hypothermia, sepsis requiring vasopressors, all of which have resolved. The patient was intubated and was extubated 4 days ago off vasopressors. The patient had multiple episodes of mucous plugging and desaturations. Bronchoscopy showed Enterobacter in his sputum treated with vancomycin and Zosyn. Vancomycin has been discontinued. Currently on Zosyn and Flagyl due to recurrent fevers despite negative findings on blood culture at risk for candidemia due to TPN. The patient has been started on Diflucan. Since then the patient's white count has decreased to 23,000. He continues to have a low grade temperature of 100.6 to 100.7 with central line of the right neck seeming slightly erythematous r/o Line sepsis IV site. 3. Acute hypoxic respiratory failure currently on face mask FiO2 of 80%. The patient continues to require high-flow mask and takes this off at times. Hypoxic failure is thought to be secondary to sepsis noncardiogenic pulmonary edema, currently on IV net negative Lasix, fluid restriction and treatment for possible pneumonia with Enterobacter. 4. Atrial flutter: Refractory. The patient has been on IV drip of amiodarone, multiple doses of IV metoprolol and multiple doses of IV amiodarone, currently on maintenance therapy with oral amiodarone via his nasal gastric tube. 5. History of seizure disorder on IV Keppra and Vimpat. 6. Severe protein calorie malnutrition with albumin level of 1.1, currently on TPN at risk for candidemia, unable to absorb, due to significant residual tube feedings. The patient currently has nasogastric tube, appears to be improved over the past 24 hours. Therefore, we will consult nutrition as well as speech and swallow evaluation. Modified barium swallow to rule out aspiration. 7. Multiple stage II ulcers secondary to severe anasarca. Wound care consultation. 8. Deep venous thrombosis prophylaxis with sequential compression devices (SCDs). 9. Hypokalemia with low potassium level secondary to diuresis, repleted with potassium via the nasogastric tube and magnesium intravenously. MTDD
[2016-09-15] MEDS ORDERED: VARIBAR PUDDING 40% w/v 230ML TUBE As Ordered ONE (10:08)
[2016-09-15] MEDS ORDERED: E-Z-PAQUE 96% w/w SUSP 176GM BTL As Ordered ONE (10:08)
[2016-09-15] MEDS ORDERED: VARIBAR NECTAR 40% w/v 240ML SUSP BTL As Ordered ONE (10:08)
[2016-09-15] MEDS: VANCOMYCIN HCL 1,000 MG, VIAL MATE ADAPTER 1 EACH in D5W 250 ML IV SCH ×2 (12:51→20:25)
[2016-09-15] MEDS ORDERED: VANCOMYCIN HCL 1,000 MG, VIAL MATE ADAPTER 1 EACH in D5W 250 ML IV ONE (14:00)
--- NOTE | 2016-09-15 14:27 | CCN ---
DATE: 09/15/2016 I was at the patient's bedside. He continues to have very high oxygen requirements. During my exam, I did turn down his high-flow mask to 50% and he maintained an oxygen saturation of 92-93%. He briefly goes down to 89% with speech. According to the nurse, he has had thick bryant sputum. He has a fairly decent cough but difficulty clearing his secretions. He has a persistent leukocytosis. On the Zosyn, Flagyl and fluconazole. He continues to have significant edema despite aggressive diuresis. He is alert and conversant. PHYSICAL EXAMINATION: Temperature is 99.6, pulse 112, blood pressure is 131/58. Respiratory rate is 28. Oxygen saturations 92-93% on 0.50 FIO2 high-flow mask, earlier this morning 91% on 0.80 high-flow mask General: The patient is sitting in bed with increased thoracic kyphosis being propped with pillows. Has generalized weakness. HEENT: Sclerae clear and anicteric. Pupils equal, reactive to light. Mucous membranes are moist without lesions. Tongue is midline. Neck supple. No tracheal deviation or mass. Lymphs: No cervical, supraclavicular or axillary adenopathy. Cardiac: Distant S1, S2. Without murmur, rub or gallop. Significant pitting edema bilateral lower and upper extremities. Pulmonary: Decreased breath sounds throughout, few scattered rhonchi. No wheeze. Abdomen is soft, minimally tender. Ostomy is pink with some stool output. Right lower quadrant drain with serosanguineous fluid. Extremities: The patient has decreased muscle strength. Was unable to lift his arm more than 30 degrees against gravity. Significant pitting edema into his thigh. Skin is pale without rashes or jaundice. LABORATORY EVALUATION: Shows a white blood cell count of 23.4 with 81% neutrophilia, hemoglobin is 8.9, hematocrit is 27.7, platelet count of 387. Glucose is 108. Sodium is 141, potassium 3.3, chloride 101, bicarb 31, BUN 31, creatinine 1.15, calcium 7.6 and magnesium is 1.7. IMPRESSIONS: 1. Hypoxia with a abnormal x-ray, felt to be most consistent with pulmonary edema; however, persistent leukocytosis. Cannot exclude pneumonia. Therefore, I have added vancomycin. He is already on Zosyn and has been for quite some time. Will obtain sputum culture and prescribe cough assist devices. 2. Pulmonary edema. Difficult to treat due to severe hypoalbuminemia. The patient diuresed over 4 liters yesterday. 3. Seizure disorder. Will check Depakote level. Continue on his anti-seizure medications. 4. Hypokalemia. Already replaced by mouth. 5. Hypomagnesemia. Replaced by mouth. 6. Leukocytosis. I have added vancomycin. Obtain a sputum culture. However, I suspect this is a continuation from his abdominal process and acute illness. The patient is on broad spectrum coverage at this point in time and remains on Flagyl despite negative Clostridium difficile as this could be a false negative. 7. Atrial flutter. 8. Severe protein calorie malnourishment. 9. Deep vein thrombosis (DVT) prophylaxis with thromboembolic deterrent stockings (TEDS) and Kendalls. 10. Gastrointestinal (GI) prophylaxis, on Protonix. 11. Unable to take by mouth feeds. This is being evaluated by his primary physician who has ordered a swallow test.
[2016-09-15] MEDS: METOPROLOL 5 MG/5 ML VIAL IV PRN (14:33)
--- NOTE | 2016-09-15 14:42 | PHACANCOPD ---
PHARMACY VANCOMYCIN DOSING Pt Demographics Demographics Patient Age:65 , Weight:82.700 , Gender: male Adjusted Body Weight Date: 09/04/16, Adjusted Body Weight: Kg Vancomycin Vancomycin indication: SEPSIS Vancomycin Target Ranges: 15-20 mcg/ml Vancomycin Load Y/N: Yes Load Dose Date Time Vancomycin Load: 2gms IV at 1300 09/15 Vancomycin Load Dose: 1750mg Date: 09/04/16 Time: 0800 Vancomycin Dose Date: 09/15/16. Current Vancomycin Dose: [1gm IV q8h@13] Date: 09/06/16. Current Vancomycin Dose: [1g IV Q6H] Intermittent Dosing?: No Labs Labs Item Value Date Time White Blood Count 26.3 K/mm3 H 09/13/16 0505 White Blood Count 25.8 K/mm3 H 09/14/16 0520 White Blood Count 23.4 K/mm3 H 09/15/16 0505 Creatinine 1.12 MG/DL 09/14/16 0520 Creatinine 1.15 MG/DL 09/15/16 0505 Vital Signs Label Value Date Time Patient Temperature 99.6 degrees F 09/15/16 0801 Temperature Source Temporal 09/15/16 0801 Patient Temperature 100.3 degrees F 09/15/16 0001 Temperature Source Temporal 09/15/16 0001 Micro Microbiology 09/12/16 Fungal Smear, Received Pending 09/12/16 Blood Fungal Culture, Received Pending 09/10/16 Blood Culture - Preliminary, Resulted No Growth after 72 hours. All specime... 09/10/16 Blood Culture - Preliminary, Resulted No Growth after 72 hours. All specime... 09/10/16 Blood Culture - Preliminary, Resulted No Growth after 72 hours. All specime... 09/10/16 Blood Culture - Preliminary, Resulted No Growth after 72 hours. All specime... 09/12/16 Clostridium difficile (PCR) - Final, Complete 09/07/16 Gram Stain - Final, Complete 09/07/16 Sputum Culture - Final, Complete Enterobacter Cloacae Complex 09/13/16 Urine Culture - Final, Complete Creatinine Clearance Date:09/04/16. Estimated Creatinine Clearance: [>100ml/min]. Pending Labs Vancomycin trough scheduled 09/05/16 @0700, prior to the 4th dose Assessment and Plan Maintaining Current Dose?: Yes Reason for dose change: No Dose Change Pharmacist Note Pharmacist Note 09/15: Vancomycin has been restarted on patient due to being septic. His WBC remains elevated, and he is experiencing fevers. His previous dosing was Vancomycin 1gm IV q6h but due to his increased SCr we are loading him with 2 grams of Vancomycin and continuing him on 1gm IV q8h for now. We will continue to monitor him and make adjustments as necessary. Date: 09/04/16. Pharmacist note: Trough of 11.7 is below target range. Have increased dose to 1000mg q6h with a trough ordered for - @0800. Will continue to monitor and make adjustments as needed. CHRISTIANE MEYERS PHARMACY Sep 15, 2016 14:42
[2016-09-15] MEDS ORDERED: MULTIVITAMIN -ADULT INJECTION 10 ML, CR/CU/SE/MN/ZN INJ 1 ML, POTASSIUM CHLORIDE INJ 55... IV SCH ×4 (18:00)
[2016-09-15] MEDS ORDERED: FAT EMULSION IV 20% 500 ML IV SCH (18:00)
[2016-09-15] MEDS: LATANOPROST 0.005% OPHTH SOLN 2.5 ML OU SCH (20:26)
[2016-09-15] MEDS: TAMSULOSIN 0.4 MG CAP PO SCH (20:40)
--- NOTE | 2016-09-15 21:43 | IPN ---
DATE: 09/15/2016 Mr. Quintero seems to be doing better today. He is on a Ventimask of 50% with O2 sats about 90-94%. He seemed to be in a little respiratory distress but is conversing with me. He asked me my name. He does complain of some abdominal pain. He is on total parenteral nutrition (TPN). LABS: White count is 23.4, hemoglobin 8.9, hematocrit 27.7, platelets 386, 81% neutrophils, 2% bands, 9% lymphocytes. Sodium 141, potassium 3.3, chloride 101, bicarb 33, BUN 31, creatinine 1.15, glucose 108, calcium 7.6, magnesium 1.7, bilirubin 1.9, AST 25, ALT 19, alk phos 157, BNP was 2700, total protein 5.4, albumin 1.1. Blood cultures from 09/10/2016 were no growth after 72 hours. C difficile was negative. Fungal smear and culture are pending and urine culture are pending. On physical exam, temperature is 98.6, pulse 104, respirations 22, blood pressure 125/59. On FiO2 of 50%, O2 ranges between 90 and 94%. T-max today was 100.3. Heart: Normal S1, S2 with no murmurs. Lungs are diminished breath sounds with expiratory rhonchi and few inspiratory wheezes. Abdomen: Tender along the midline. There are two areas of the incision which have dehisced with erythema with some tenderness. There is mostly serosanguineous discharge. Left lower quadrant has a colostomy . the colostomy is less than edematous. There is watery stool. Extremities: +1 edema. Scrotal edema has markedly decreased as well. IMPRESSION: 1. Ischemic small bowel obstruction secondary to incarcerated hernia complicated by some abdominal wound dehiscence. Persistent fever. The patient is on broad-spectrum antibiotic with vancomycin and Zosyn. 2. Hypoxic respiratory failure on FiO2 50% after diuresis, but also he was started on vancomycin. 3. Atrial flutter on amiodarone. Cardiology has been consulted. The patient also had some element of fluid overload with elevated BNP and is being diarrhea. C difficile was negative. PLAN: Fungal culture is still pending. Stool for C difficile is negative. Would suggest to discontinue IV Flagyl. Continue with vancomycin, Zosyn and fluconazole. There is no need for two anaerobic coverage. His dose of Zosyn should be every 6 hours instead of every 8 hours and this will be adjusted. MTDD
[2016-09-16] VITALS (30 sets, daily range): BP systolic 101–181; BP diastolic 54–81
[2016-09-16] MEDS: LEVALBUTEROL 1.25 MG/0.5 ML CONCENTRATE NEB INH SCH ×4 (00:18→19:53)
[2016-09-16] MEDS: PIPERACILLIN/TAZOBACTAM SOD 3.375 GM in D5W MINI-BAG PLUS 50 ML IV SCH ×4 (03:39→22:21)
[2016-09-16] MEDS: VANCOMYCIN HCL 1,000 MG, VIAL MATE ADAPTER 1 EACH in D5W 250 ML IV SCH ×2 (04:54→12:45)
[2016-09-16] MEDS: HEPARIN SOD (PORCINE) 5000 UNITS/ML VIAL SC SCH ×3 (05:48→22:21)
[2016-09-16] MEDS: FUROSEMIDE 40 MG/4 ML VIAL (J1940) IV SCH ×4 (05:48→23:47)
[2016-09-16] MEDS: SODIUM CHLORIDE 0.9% INJ 10 ML SYR IV SCH ×3 (05:48→22:21)
[2016-09-16 06:01] LABS: ABG BASE EXCESS 5.3 (-2.0-2.0); ABG HCO3 30.3 MEQ/L (22.0-26.0); ABG PARTIAL PRESSURE CO2 47.3 mmHg (35.0-45.0); ABG STANDARD HCO3 29.2 MEQ/L (22.0-26.0); ABG TOTAL CO2 31.8 MEQ/L (23.0-31.0); ABG pH (ARTERIAL) 7.425 UNITS (7.350-7.450)
[2016-09-16 06:24] LABS: MEAN CORPUSCULAR HEMOGLOBIN 29.3 pg (27.0-33.0); MEAN CORPUSCULAR HGB CONC 31.5 g/dl (32.0-36.5); PLATELET COUNT, AUTOMATED 501 k/mm3 (150-450); WHITE BLOOD COUNT 23.4 K/mm3 (4.0-10.0)
[2016-09-16 06:43] LABS: ALBUMIN 1.3 GM/DL (3.2-5.2); ALBUMIN/GLOBULIN RATIO 0.34 (1.00-1.93); ALKALINE PHOSPHATASE 175 U/L (45-117); ALT/SGPT 19 U/L (12-78); ANION GAP 7 MEQ/L (8-16); AST/SGOT 21 U/L (15-37); BILIRUBIN,TOTAL 1.8 MG/DL (0.2-1.0); BLOOD UREA NITROGEN 32 MG/DL (7-18); CALCIUM LEVEL 7.3 MG/DL (8.8-10.2); CARBON DIOXIDE LEVEL 35 MEQ/L (21-32); CHLORIDE LEVEL 98 MEQ/L (98-107); CREATININE FOR GFR 1.18 MG/DL (0.70-1.30); GLOMERULAR FILTRATION RATE > 60.0 (>49); GLUCOSE, FASTING 117 MG/DL (80-110); MAGNESIUM LEVEL 1.7 MG/DL (1.8-2.4); SODIUM LEVEL 140 MEQ/L (136-145); TOTAL PROTEIN 5.1 GM/DL (6.4-8.2)
[2016-09-16 07:22] LABS: BANDS 3 % (< 11); EOSINOPHILS 2 % (0-5)
[2016-09-16 07:23] LABS: HYPOCHROMASIA 2+
[2016-09-16 07:24] LABS: ANISOCYTOSIS 1+
[2016-09-16] MEDS: FLUCONAZOLE 400 MG in APPROPRIATE DILUENT 1 EA IV SCH (07:56)
[2016-09-16] MEDS: AMIODARONE 200 MG TAB (PACERONE) NG SCH ×2 (08:00→21:00)
[2016-09-16] MEDS: POTASSIUM CHLORIDE 10% LIQ 20 MEQ/15 ML UDC PEG SCH ×2 (08:00→20:59)
[2016-09-16] MEDS: VALPROIC ACID SYRUP 250 MG/5 ML UDC PO SCH ×3 (08:00→20:59)
[2016-09-16] MEDS: PANTOPRAZOLE 40MG INJ (PROTONIX) (C9113) IV SCH (08:00)
[2016-09-16] MEDS: LACOSAMIDE 10MG/ML 20ML VIAL (VIMPAT) (C9254) IV SCH ×2 (08:01→21:00)
[2016-09-16] MEDS: NYSTATIN 100,000 UNITS/GM TOPICAL PWD 15 GM TOP SCH ×2 (08:01→21:00)
--- NOTE | 2016-09-16 08:16 | IPN ---
DATE: 09/16/2016 Mr. Quintero looks better this morning. He is clearly alert and he nods to simple questions. There have not been any major events since yesterday, but he did have another episode of supraventricular tachycardia (SVT) yesterday afternoon that was very brief and lasted only A few minutes. For the most part, he has been in sinus tachycardia. Vital Signs: 136/63, heart rate in 110s, afebrile. Saturation in the low 90s on high-flow oxygen. Fluid balance yesterday was negative about 2-1/2 liters. Documented weight today is 80.9 kg, which is still 14 kg less than 5 days ago. His jugular venous pulse (JVP) does not look high. Lungs are relatively clear. There is only scattered rhonchi. Heart exam regular tachycardia. No gallop or rub. Abdomen is soft. Bowel sounds are positive, he is still diffusely tender. The degree of peripheral edema is progressively improving, but he is still quite edematous in both upper and lower extremities and dependent part of his corpus. Laboratories: WBC count 23.4, hemoglobin 8.8, hematocrit 28 and platelet count 501,000. Basic metabolic panel: potassium 4.0, BUN 32, creatinine 1.2 and glucose 118. Magnesium 1.7 and albumin 1.3 ASSESSMENT/PLAN: Mr. Quintero is a 65-year-old man who presented with necrotic bowel and underwent surgery. I have been involved solely for assistance with controlling his recurrent SVT, most likely atypical flutter, less likely atrial tachycardia. Eventually after intravenous beta blockers and digoxin were felt to be ineffective, we decided to pursue amiodarone. He was loaded IV and now is getting it by mouth. The frequency of arrhythmia is decreasing. I would not feel that we have to change the strategy at this point. I am going to sign off his care. My recommendation is to continue amiodarone for approximately a month total, but after 2 weeks I would reduce the dose to just 400 mg daily and after 1 month the medication can be completely discontinued. If he has brief relapses of SVT in the interim, I would use metoprolol as is being done. If there are any problems in the interim, please do not hesitate to contact me.
--- NOTE | 2016-09-16 08:34 | PHACANCOPD ---
PHARMACY VANCOMYCIN DOSING Pt Demographics Demographics Patient Age:65 , Weight:80.900 , Gender: male Adjusted Body Weight Date: 09/04/16, Adjusted Body Weight: Kg Vancomycin Vancomycin indication: SEPSIS Vancomycin Target Ranges: 15-20 mcg/ml Vancomycin Load Y/N: Yes Load Dose Date Time Vancomycin Load: 2gms IV at 1300 09/15 Vancomycin Load Dose: 1750mg Date: 09/04/16 Time: 0800 Vancomycin Dose Date: 09/15/16. Current Vancomycin Dose: [1gm IV q8h@13] Date: 09/06/16. Current Vancomycin Dose: [1g IV Q6H] Intermittent Dosing?: No Labs Micro Microbiology 09/12/16 Fungal Smear, Received Pending 09/12/16 Blood Fungal Culture, Received Pending 09/10/16 Blood Culture - Final, Complete NO GROWTH AFTER 5 DAYS 09/10/16 Blood Culture - Final, Complete NO GROWTH AFTER 5 DAYS 09/10/16 Blood Culture - Final, Complete NO GROWTH AFTER 5 DAYS 09/10/16 Blood Culture - Final, Complete NO GROWTH AFTER 5 DAYS 09/12/16 Clostridium difficile (PCR) - Final, Complete 09/16/16 Gram Stain, Received Pending 09/16/16 Sputum Culture, Received Pending 09/07/16 Gram Stain - Final, Complete 09/07/16 Sputum Culture - Final, Complete Enterobacter Cloacae Complex 09/13/16 Urine Culture - Final, Complete Creatinine Clearance Date:09/04/16. Estimated Creatinine Clearance: [>100ml/min]. Pending Labs Vancomycin trough scheduled 09/05/16 @0700, prior to the 4th dose Assessment and Plan Maintaining Current Dose?: Yes Reason for dose change: No Dose Change Pharmacist Note Pharmacist Note 09/16: Scr remains stable. Output has been increased due to IV lasix. Repeat sputum and blood fungal cultures are still pending. I have scheduled a trough to be drawn today, 09/16/16, @1200. We will continue to monitor and adjust dose if needed. 09/15: Vancomycin has been restarted on patient due to being septic. His WBC remains elevated, and he is experiencing fevers. His previous dosing was Vancomycin 1gm IV q6h but due to his increased SCr we are loading him with 2 grams of Vancomycin and continuing him on 1gm IV q8h for now. We will continue to monitor him and make adjustments as necessary. Date: 09/04/16. Pharmacist note: Trough of 11.7 is below target range. Have increased dose to 1000mg q6h with a trough ordered for 09-07 @0800. Will continue to monitor and make adjustments as needed. SARAH BACA PHARMACY Sep 16, 2016 08:34
--- NOTE | 2016-09-16 08:48 | REP ---
PORTABLE CHEST X-RAY: Single view. HISTORY: Respiratory failure. Comparison chest x-ray September 15, 2016. FINDINGS: There are extensive infiltrates in the lungs bilaterally most predominantly affecting the upper lobes. There is some opacification of the lung modi in the bases as well. A nasogastric tube is seen in the left upper quadrant. EKG monitoring electrodes are noted. Heart is not felt to be enlarged. IMPRESSION: Extensive bilateral interstitial infiltrates persist essentially unchanged. Signed by Damian Gee MD 09/16/2016 02:49 P
[2016-09-16] MEDS ORDERED: MAG SULF 1GM/100ML (MAG RUN) 1 GM in APPROPRIATE DILUENT 1 EA IV ONE (09:30)
--- NOTE | 2016-09-16 09:47 | IPN ---
DATE OF SERVICE: 09/16/2016 A 65-year-old gentleman seen at bedside resting comfortably. No acute complaints. No chest pain. No nausea or vomiting. OBJECTIVE: Temperature is 99.1, pulse is 100, respiratory rate is 32, blood pressure (BP) 122/60, SpO2 is 94% on high-flow mask at FiO2 of 80%. General: The patient appears to be in no acute distress. HEENT: Head is atraumatic, normocephalic. Eyes: Pupils equal, round, and reactive to light and accommodation. Throat is clear. Neck: Supple. Lungs: Diminished bibasilar breath sounds, occasional wheeze. Heart: Regular rate and rhythm. Abdomen: Soft. Extremities: No edema. No calf tenderness. LABORATORY DATA: White count is 23.4, hemoglobin 8.8, platelets are 501,000. Sodium 140, potassium 4.0, chloride 98, bicarbonate 35, anion gap 7, BUN 32, creatinine 1.18, glucose 117, calcium 7.3, magnesium 1.7, total bilirubin 1.8 down from 1.9, AST 21, ALT 19, alkaline phosphatase 175, albumin is 1.3. Chest x-ray this morning, extensive bilateral interstitial infiltrates persistent and unchanged from yesterday. No consolidation. ASSESSMENT AND PLAN: 1. Ischemic bowel secondary to incarcerated hernia requiring emergent resection and primary anastomose done on 09/04/2016. Postoperative complications with hypothermia and sepsis. He does appear to be doing better now, being managed by Dr. Ackerman. 2. Infectious disease. The patient does appear to have presumed underlying pneumonia, as well as candidemia. Is continued on Zosyn, vancomycin, and Diflucan. Appreciate Dr. Dale's input. 3. Acute hypoxic respiratory failure with underlying pulmonary edema. He is currently on net negative Lasix and fluid restriction. Continue to monitor intake and output (I and O), as well as renal function. 4. Atrial flutter, refractory. Appreciate Dr. Barron's input regarding metoprolol and amiodarone. 5. History of seizure disorder, stable. Continue on Vimpat and Keppra. 6. Severe protein-calorie malnutrition. Currently on total parenteral nutrition (TPN) but at risk for candidemia. Again appreciate Dr. Dale's input. Nutrition consult, as well as speech therapy for swallow evaluation with modified barium swallow to rule out aspiration that was mentioned in the note yesterday. I do not see where that has been done. Will order this for followup. Will go ahead and order for that to be done this week. 7. Multiple stage II ulcers with anasarca. Wound care consult has been placed. 8. Deep venous thrombosis (DVT) prophylaxis. Thromboembolic deterrents (TEDs) and sequentials. 9. Gastrointestinal (GI) prophylaxis per Dr. Johnson. 10. Electrolyte abnormality, likely secondary to diuresis. We will replete. Continue to follow potassium and magnesium. DISPOSITION: The patient's prognosis is guarded at this time. Will continue to assist with medical management.
[2016-09-16] MEDS: levETIRAcetam INJection 500 MG in D5W MINI-BAG PLUS 100 ML IV SCH ×2 (10:01→21:00)
--- NOTE | 2016-09-16 12:46 | CCN ---
DATE OF SERVICE: 09/16/2016 At the patient's bedside today, he is out to a cardiac chair. Oxygen requirements still remain high, however, he is saturating 97% on 60% FiO2. I decreased his FIO2 to 50% or 0.5. He remained at 94%. He has been using the vest with good results. Nursing staff noted pustular drainage from the incision. Kevin-Crump (EUSEBIA) drain appears clear. He now has tube feeds through his nasogastric (NG) tube. Has some difficulty with speech. Poor cough clearance. He denies any pain. PHYSICAL EXAMINATION: Temperature is 99.0. It does appear his fever curve is trending down. Pulse is 91, blood pressure is 127/71, respiratory rate of 24, oxygen saturation is 97% on 0.60. General: The patient is sitting in a cardiac chair with increased thoracic kyphosis, semi-slumped. HEENT: Sclerae clear and anicteric. Mucous membranes are moist. NG tube is in place. No evidence of epistaxis. Tongue is midline. No lesions. Some excoriations of the lips. Neck: Supple. No tracheal deviation or mass. Lymphatic: No cervical, supraclavicular, or axillary adenopathy. Pulmonary: Diffuse rales bilaterally. I do not auscultate wheeze. He is slightly tachypneic on examination. No accessory muscle use. Nondistended. Minimal drainage from the incision. No obvious fluid collections. No mass. EUSEBIA drain appears clear. Ostomy has good color with decent stool output. Minimal edema. Extremities: Significant pitting edema bilateral upper and lower extremities. Skin is pale, clean, dry. No rash, jaundice, or bruising. LABORATORY EVALUATION: Shows a white blood cell count of 23.4, hemoglobin of 8.8, hematocrit of 28.0, platelet count of 501, 80% neutrophilia, 3% bandemia. Sodium is 140, potassium is 4.0, chloride is 98, bicarbonate is 35, BUN is 32, creatinine of 1.18, total bilirubin is 1.8, albumin is up to 1.3. Sputum is pending from yesterday. Chest x-ray shows bilateral diffuse infiltrate with upper lobe predominance. Decreased chest expansion. 1. Hypoxia. Severe in nature. Will continue chest physical therapy (PT). Attempts towards diuresis given. However, this may be difficult given the severity of his protein malnourishment and hypoalbuminemia. He is on broad-spectrum antibiotic coverage to cover any pneumonia that may be present. He is at high risk for recurrent aspiration. NG tube is in place with tube feeds. 2. Abnormal chest x-ray. Pulmonary edema versus pneumonia. He is being treated for both at this point in time. It is fairly difficult to distinguish. I believe he is at least significant pulmonary edema likely secondary to his hypoalbuminemia. 3. Fever, trending down after starting vancomycin. Sputum culture is pending. He is on broad-spectrum antibiotics. Two sources are his abdomen and lungs at this point in time. No other sources of infection. 4. Leukocytosis, as above. 5. Anemia. No indication for transfusion at this point in time. 6. Severe protein-calorie malnourishment. 7. Seizure disorder. Depakote level was low. He has had no evidence of seizure activity. Would continue current dosing. 8. Atrial flutter. 9. Deep venous thrombosis (DVT) prophylaxis. 10. Gastrointestinal (GI) prophylaxis. Encourage out of bed and mobilization as much as possible. Overall, I do have quite a bit of concern as he remains with persistent leukocytosis on broad-spectrum antibiotics. He remains significantly hypoxic with severe protein malnourishment. Long-term prognosis is poor. MTDD
--- NOTE | 2016-09-16 16:10 | ECGEPIP ---
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
[2016-09-16] MEDS ORDERED: FAT EMULSION IV 20% 500 ML IV SCH (18:00)
[2016-09-16] MEDS ORDERED: POTASSIUM CHLORIDE INJ 55.6 MEQ in AMINO AC/ELECTROLYTE/DEX/CALC 2,000 ML IV SCH (18:00)
[2016-09-16] MEDS: LATANOPROST 0.005% OPHTH SOLN 2.5 ML OU SCH (21:00)
[2016-09-16] MEDS: TAMSULOSIN 0.4 MG CAP PO SCH (21:00)
--- NOTE | 2016-09-16 23:41 | PHACANCOPD ---
PHARMACY VANCOMYCIN DOSING Pt Demographics Demographics Patient Age:65 , Weight:80.900 , Gender: male Adjusted Body Weight Events Past 24 Hours Events Past 24 Hours: NO: Dialysis, Diuretic Therapy, Change in CrCl, Fever, Elevation in WBC, Pending Diagnostics, Pending Procedures, Other Vancomycin Vancomycin indication: SEPSIS Vancomycin Target Ranges: 15-20 mcg/ml Vancomycin Load Y/N: Yes Load Dose Date Time Vancomycin Load: 2gms IV at 1300 09/15 Vancomycin Load Dose: 1750mg Date: 09/04/16 Time: 0800 Vancomycin Dose Date: 09/16/16. Change current Vancomycin Dose to 1gm iv q12h starting at 6am Intermittent Dosing?: No Labs Labs Laboratory Tests Test 09/16/16 20:00 Vancomycin Level Trough 29.1 UG/ML (10.0-20.0) Laboratory Tests 09/16/16 05:45 Red Blood Count 3.01, Mean Corpuscular Volume 93.0, Mean Corpuscular Hemoglobin 29.3, Mean Corpuscular Hemoglobin Concent 31.5, Red Cell Distribution Width 15.0 , Calcium Level 7.3, Aspartate Amino Transf (AST/SGOT) 21, Alanine Aminotransferase (ALT/SGPT) 19, Alkaline Phosphatase 175, Total Bilirubin 1.8, Total Protein 5.1, Albumin 1.3 Micro Creatinine Clearance Date:09/16/16. Estimated Creatinine Clearance: [>60 ml/min]. Pending Labs Vancomycin trough scheduled 09/05/16 @0700, prior to the 4th dose Assessment and Plan Maintaining Current Dose?: No Reason for dose change: Trough too high Pharmacist Note Pharmacist Note 09/16/16: Pharm.D. note: VANCO TR 29.1 mcg/ml PRIOR TO TONIGHT'S DOSE. VANCO DOSE WAS CHANGED TO 1GM IV Q12H STARTING AT 6AM 09/17/16. A REPEAT VANCO TR WILL BE ORDERED WHEN AT STEADY STATE. VINNY QUINTERO [facility] Sep 16, 2016 23:41
[2016-09-16] MEDS: METOPROLOL 5 MG/5 ML VIAL IV PRN (23:48)
[2016-09-17] VITALS (17 sets, daily range): BP systolic 118–150; BP diastolic 65–82; O2SAT 94
[2016-09-17] MEDS: LEVALBUTEROL 1.25 MG/0.5 ML CONCENTRATE NEB INH SCH ×4 (01:00→20:02)
[2016-09-17] MEDS: ACETAMINOPHEN 325 MG/10.15 ML UDC GT PRN (04:22)
[2016-09-17] MEDS: PIPERACILLIN/TAZOBACTAM SOD 3.375 GM in D5W MINI-BAG PLUS 50 ML IV SCH (04:22)
[2016-09-17] MEDS: FUROSEMIDE 40 MG/4 ML VIAL (J1940) IV SCH ×3 (05:00→17:37)
[2016-09-17] MEDS: SODIUM CHLORIDE 0.9% INJ 10 ML SYR IV SCH ×3 (05:16→20:44)
[2016-09-17] MEDS: HEPARIN SOD (PORCINE) 5000 UNITS/ML VIAL SC SCH ×3 (05:16→20:43)
[2016-09-17] MEDS: METOPROLOL 5 MG/5 ML VIAL IV PRN (05:24)
[2016-09-17 05:55] LABS: DIFF SLIDE NUMBER 5; MEAN CORPUSCULAR HEMOGLOBIN 29.3 pg (27.0-33.0); MEAN CORPUSCULAR HGB CONC 31.2 g/dl (32.0-36.5); RED CELL DISTRIBUTION WIDTH 15.1 % (11.5-14.5)
[2016-09-17 05:58] LABS: PLATELET COUNT, AUTOMATED 602 k/mm3 (150-450)
[2016-09-17] MEDS: VANCOMYCIN HCL 1,000 MG, VIAL MATE ADAPTER 1 EACH in D5W 250 ML IV SCH ×2 (06:00→17:37)
[2016-09-17 06:12] LABS: ALBUMIN 1.3 GM/DL (3.2-5.2); ALBUMIN/GLOBULIN RATIO 0.29 (1.00-1.93); ALKALINE PHOSPHATASE 196 U/L (45-117); ALT/SGPT 15 U/L (12-78); ANION GAP 4 MEQ/L (8-16); AST/SGOT 21 U/L (15-37); BILIRUBIN,TOTAL 1.5 MG/DL (0.2-1.0); BLOOD UREA NITROGEN 32 MG/DL (7-18); CALCIUM LEVEL 7.2 MG/DL (8.8-10.2); CARBON DIOXIDE LEVEL 37 MEQ/L (21-32); CHLORIDE LEVEL 98 MEQ/L (98-107); CREATININE FOR GFR 1.11 MG/DL (0.70-1.30); GLOMERULAR FILTRATION RATE > 60.0 (>49); GLUCOSE, FASTING 119 MG/DL (80-110); POTASSIUM SERUM 4.3 MEQ/L (3.5-5.1); SODIUM LEVEL 139 MEQ/L (136-145); TOTAL PROTEIN 5.8 GM/DL (6.4-8.2)
[2016-09-17 06:28] LABS: BANDS 6 % (< 11); EOSINOPHILS 1 % (0-5)
[2016-09-17 06:30] LABS: ANISOCYTOSIS 1+; HYPOCHROMASIA 2+; MICROCYTOSIS 1+
[2016-09-17] MEDS: FLUCONAZOLE 400 MG in APPROPRIATE DILUENT 1 EA IV SCH (08:29)
[2016-09-17] MEDS: LACOSAMIDE 10MG/ML 20ML VIAL (VIMPAT) (C9254) IV SCH (08:53)
[2016-09-17] MEDS: POTASSIUM CHLORIDE 10% LIQ 20 MEQ/15 ML UDC PEG SCH ×2 (08:53→20:41)
[2016-09-17] MEDS: AMIODARONE 200 MG TAB (PACERONE) NG SCH ×2 (08:54→11:10)
[2016-09-17] MEDS: levETIRAcetam INJection 500 MG in D5W MINI-BAG PLUS 100 ML IV SCH ×2 (08:55→20:42)
[2016-09-17] MEDS: NYSTATIN 100,000 UNITS/GM TOPICAL PWD 15 GM TOP SCH ×2 (08:55→20:43)
[2016-09-17] MEDS: VALPROIC ACID SYRUP 250 MG/5 ML UDC PO SCH ×3 (08:55→20:41)
[2016-09-17] MEDS: PANTOPRAZOLE 40MG INJ (PROTONIX) (C9113) IV SCH (08:55)
--- NOTE | 2016-09-17 09:23 | IPN ---
DATE: 09/16/2016 Mr. Flores is doing fairly well. He is sitting in a chair. He seems pretty comfortable. He was just started on tube feeds at 10 mL an hour which he tolerated and these were increased to 20 mL an hour. The nurse was concerned that there was drainage from the abdominal wound and a couple areas of dehiscence. Temperature is 99.3, pulse 117, respirations 28, blood pressure 128/62, O2 sat is 90% on FIO2 of 60%. Heart: Normal S1, S2, tachycardiac. Lungs: Exterior rhonchi and wheezing. Abdomen: Soft, tender. Abdominal wound has areas of dehiscence with erythema. Extremities: With +1 edema, scrotal edema has diminished. LABORATORY DATA: White count is 23.4, hemoglobin 8.8, hematocrit 28, platelets 501, 8% neutrophils, 3% bands, 1% lymphocytes, 8% myelocytes. Sodium 140, potassium 4, chloride 98, bicarb 35, BUN 32, creatinine 1.1, glucose 117, calcium 7.3, magnesium 1.7, bilirubin 1.8, AST 21, ALT 1.8. Fungal smear and culture from the port still pending. Urine culture on 09/13 was negative. Sputum culture on 09/16 is negative. IMAGING STUDIES: Chest x-ray done 09/16 shows extensive bilateral interstitial infiltrates, unchanged. IMPRESSION: 1. Respiratory failure with hypoxia, combination of fluid overload, hypoalbuminemia and possible pneumonia on IV Zosyn and vancomycin. 2. Sepsis with fever, leukocytosis on broad-spectrum antibiotic with Zosyn and vancomycin and fluconazole. Source probably abdominal wound, possibly the lung. Will obtain wound culture today to make sure he does not have any other resistant pathogens. Continue same management, same antibiotics.
--- NOTE | 2016-09-17 12:02 | IPN ---
DATE: 09/17/2016 Mr. Flores is a 65-year-old gentleman still requiring oxygen supplementation. He states he is in no acute pain, but he does continue to have some shortness of breath as well as abdominal discomfort and is requiring TPN with nutritional supplementation. OBJECTIVE: Temperature is 102.1 this morning, this is T-max. Pulse 100. Respiratory rate is 20. Blood pressure 125/66. SpO2 is 93% on high flow. Intake and output 3510/4700, negative fluid balance of 1190. GENERAL: The patient appears to be in no acute distress, is alert and oriented. HEENT: Unremarkable. LUNGS: Irregular rate and rhythm. ABDOMEN: Soft. EXTREMITIES: No edema. No calf tenderness. LABORATORY DATA: White count is 19,000 down from 23. Hemoglobin 8.4, platelets 602,000. Sodium is 139, potassium 4.3, chloride 98, bicarb 37, anion gap 4, BUN is 32, creatinine 1.11, glucose is 119. Calcium is 7.2, magnesium 2.0, total bilirubin 1.5, AST 21, ALT 15, alkaline phosphatase 196, albumin is 1.3. Chest x-ray from yesterday did show extensive bilateral interstitial infiltrates. These appear to be persistent and essentially unchanged. ASSESSMENT/PLAN: 1. Ischemic bowel secondary to incarcerated hernia, repaired emergently by resection anastomosis on 09/04/2016 and postoperative complications with hypothermia and sepsis as noted, being managed by Dr. Ackerman. Appreciate his input. 2. Infectious diseases with presumed underlying pneumonia as well as candidemia. Currently on Zosyn, vancomycin, Diflucan. Appreciate Dr. Dale's input. 3. Acute hypoxic respiratory failure, likely multifactorial with pneumonia and underlying pulmonary edema. His intake and output do show negative fluid balance. Will continue to monitor his renal function. No other changes currently other than he does continue with net negative Lasix and fluid restriction. 4. Atrial flutter. Appears to be refractory. Appreciate Dr. Barron's input with adjusting metoprolol and amiodarone. 5. History of seizure disorder, stable on Vimpat and Keppra. 6. Severe protein calorie malnutrition. TPN is on board, but he is at risk for candidemia. Appreciate Dr. Dale's input. He does continue on IV Diflucan. There is some question of his ability to swallow and need to rule out aspiration. I am going to hold off on doing any further swallow evaluation until he is doing better from a medical standpoint. He does continue on TPN and I will defer that to Dr. Ackerman. 7. Multiple stage II ulcers with anasarca, present on admission. Wound consult has been placed. 8. Gastrointestinal (GI) prophylaxis. Per Dr. Johnson. 9. Electrolyte abnormality. Likely secondary to diuresis. Will replete as needed. Continue with potassium and magnesium. 10. Deep vein thrombosis (DVT) prophylaxis. Continue thromboembolic deterrent stockings (TEDS) and sequentials. DISPOSITION: Prognosis remains guarded at this time. Will continue to assist with medical management. Appreciate input from Dr. Ackerman, Dr. Barron and Dr. Dale.
--- NOTE | 2016-09-17 16:29 | REP ---
RIGHT UPPER QUADRANT ULTRASOUND: Real-time sonographic evaluation of the right upper extremity is performed. Study is somewhat limited due to inability to suspend respirations and limited mobility. Gallbladder demonstrates no evidence of ischial luminal calculi. There is no gallbladder wall thickening. There is no pericholecystic fluid. There is no intrahepatic or extrahepatic biliary dilatation. Common bile duct measuring 6 mm in diameter. Liver and pancreas demonstrate no gross mass. Pancreas is not optimally seen due to overlying bowel gas. Right kidney demonstrates no hydronephrosis or nephrolithiasis with normal size of 13.2 cm in length. No free fluid is seen. IMPRESSION: Essentially unremarkable right upper quadrant ultrasound within the limits of this study as discussed above. Signed by Ariel Shane MD 09/18/2016 03:33 P
--- NOTE | 2016-09-17 16:31 | REP ---
RIGHT UPPER EXTREMITY DUPLEX DOPPLER VENOUS ULTRASOUND: Real-time ultrasound evaluation and duplex Doppler interrogation of the right upper extremity deep vein system is performed. The study is limited as there is a central line with overlying bandages. These structures obscure the jugular and central subclavian veins. The cephalic vein could not be visualized. The visualized portions of the right subclavian vein are patent. Right axillary and brachial veins as well as basilic vein are patent and compressible with no intraluminal thrombus and normal internal flow. IMPRESSION: No DVT right upper extremity, although the right jugular and central subclavian vein as well as cephalic vein could not be visualized. Signed by Ariel Shane MD 09/18/2016 03:33 P
--- NOTE | 2016-09-17 17:45 | CCN ---
DATE: 09/17/2016 Called to the patient's bedside for persistent fevers. The patient continues to require high levels of oxygen. He however states his breathing is "good". He did stand at the side of his bed today. Abdominal wound culture did not show any significant pathogens. Sputum culture was contaminated. The nurse did note that he has large amounts of secretions that he has difficulty clearing on his own that she has a suctioned from the back of a stroke and he is quite a bit of secretions this morning. He is continuing to have tube feeds through the nasogastric (NG) tube. This was paused briefly for a right upper quadrant ultrasound. PHYSICAL EXAMINATION: VITAL SIGNS: Maximum temperature was 102.1, temperature now 100.0, pulse is 98-112, blood pressure is 124-80 to 140/82, oxygen saturation is 94-95% on 0.8 FiO2. I decreased the FIO2 to 60% when I was in the room, saturation was 93%. This was even with laying the patient supine. GENERAL: Patient is sitting in a 30% incline in bed. Thoracic kyphosis. He is slumped to the right on my arrival. HEENT: Sclerae clear and anicteric. Pupils equal, reactive to light. Mucous membranes moist. NG tube is in place. No evidence of epistaxis. Tongue is midline without lesions. NECK: Supple. No tracheal deviation or mass. LYMPH: No cervical supraclavicular axillary adenopathy. PULMONARY: Diffuse rales bilaterally. I do not auscultate any wheeze. He does have some rhonchi today. No tachypnea is observed yesterday. No accessory muscle use. ABDOMEN: Nondistended. Ostomy is pink and moist. EUSEBIA a drain appears clear. No mass. EXTREMITIES: Decreased edema from prior exams. Much less so in the upper extremities. Lower extremities also decreased edema. SKIN: Pale, cool and dry. No rashes, jaundice or bruising. LABORATORY EVALUATION: White blood cell count remains elevated at 19, hemoglobin 8.4, hematocrit 24.7, platelet count of 602, albumin is low at 1.3, fasting glucose is 119, sodium is 139, potassium 4.3, chloride 98, bicarb 37, BUN of 32, creatinine 1.11, glucose 119, calcium of 7.2. No imaging was performed today. Chest x-ray holidays his clinical status is not changed significantly in the past day. Still remains pupils severely hypoxic. 1. Hypoxia severe in nature secondary to pulmonary edema. Likely from hypoalbuminemia. There is a question of pneumonia. He is covered with Vanco/Zosyn and fluconazole as he has had prolonged central line placement and abdominal procedures. 2. Fevers. Still remains febrile despite antibiotic therapy. Multiple sources of infection have been entertained. Blood cultures have not shown any signs of infection. Wound culture does not show any bacteria that is not being treated at this point in time. No other signs, sources, or infection currently. Presumed from abdominal process versus pneumonia. 4. Poor mucociliary clearance with inability to eat. The patient will likely need percutaneous endoscopic gastrostomy tube in the future. 5. Atrial flutter currently fairly well rate controlled. 6. History of seizures disorder on Vimpat and Keppra. 7. Severe protein calorie malnourishment with severe hypoalbuminemia. This is causing significant retention of fluid despite aggressive diuresis. 8. Gastrointestinal (GI) prophylaxis on Protonix. 9. Deep venous thrombosis (DVT) prophylaxis, TEDs and sequentials.
[2016-09-17] MEDS ORDERED: FAT EMULSION IV 20% 500 ML IV SCH (18:00)
[2016-09-17] MEDS ORDERED: MULTIVITAMIN -ADULT INJECTION 10 ML, CR/CU/SE/MN/ZN INJ 1 ML in AMINO AC/ELECTROLYTE/DE... IV SCH (18:00)
[2016-09-17] MEDS: LATANOPROST 0.005% OPHTH SOLN 2.5 ML OU SCH (20:42)
[2016-09-17] MEDS: TAMSULOSIN 0.4 MG CAP PO SCH (20:42)
[2016-09-18] VITALS (8 sets, daily range): BP systolic 128–142; BP diastolic 63–79; O2SAT 95
[2016-09-18] MEDS: LEVALBUTEROL 1.25 MG/0.5 ML CONCENTRATE NEB INH SCH ×4 (02:40→20:03)
[2016-09-18] MEDS: METOPROLOL 5 MG/5 ML VIAL IV PRN (03:47)
[2016-09-18] MEDS: ACETAMINOPHEN 325 MG/10.15 ML UDC GT PRN (04:17)
[2016-09-18] MEDS: HEPARIN SOD (PORCINE) 5000 UNITS/ML VIAL SC SCH ×3 (05:57→21:21)
[2016-09-18] MEDS: VANCOMYCIN HCL 1,000 MG, VIAL MATE ADAPTER 1 EACH in D5W 250 ML IV SCH (05:58)
[2016-09-18] MEDS: FUROSEMIDE 40 MG/4 ML VIAL (J1940) IV SCH ×3 (05:58→11:31)
[2016-09-18] MEDS: SODIUM CHLORIDE 0.9% INJ 10 ML SYR IV SCH ×3 (05:59→21:21)
[2016-09-18 06:16] LABS: ALBUMIN 1.4 GM/DL (3.2-5.2); ALBUMIN/GLOBULIN RATIO 0.29 (1.00-1.93); ALKALINE PHOSPHATASE 196 U/L (45-117); ALT/SGPT 15 U/L (12-78); ANION GAP 2 MEQ/L (8-16); AST/SGOT 16 U/L (15-37); BILIRUBIN,TOTAL 1.2 MG/DL (0.2-1.0); BLOOD UREA NITROGEN 29 MG/DL (7-18); CALCIUM LEVEL 7.9 MG/DL (8.8-10.2); CARBON DIOXIDE LEVEL 41 MEQ/L (21-32); CHLORIDE LEVEL 96 MEQ/L (98-107); GLOMERULAR FILTRATION RATE > 60.0 (>49); GLUCOSE, FASTING 137 MG/DL (80-110); MAGNESIUM LEVEL 2.3 MG/DL (1.8-2.4); POTASSIUM SERUM 5.1 MEQ/L (3.5-5.1); SODIUM LEVEL 139 MEQ/L (136-145); TOTAL PROTEIN 6.2 GM/DL (6.4-8.2)
[2016-09-18 06:35] LABS: MEAN CORPUSCULAR HGB CONC 30.4 g/dl (32.0-36.5); MEAN CORPUSCULAR VOLUME 95.4 fl (80.0-96.0); PLATELET COUNT, AUTOMATED 669 k/mm3 (150-450); RED CELL DISTRIBUTION WIDTH 15.2 % (11.5-14.5)
[2016-09-18 07:17] LABS: EOSINOPHILS 2 % (0-5)
[2016-09-18 07:19] LABS: HYPOCHROMASIA 1+
[2016-09-18 07:20] LABS: ANISOCYTOSIS 1+; STOMATOCYTES 2+
[2016-09-18] MEDS: FLUCONAZOLE 400 MG in APPROPRIATE DILUENT 1 EA IV SCH (08:07)
[2016-09-18] MEDS: AMIODARONE 200 MG TAB (PACERONE) NG SCH ×2 (09:26→21:17)
[2016-09-18] MEDS: VALPROIC ACID SYRUP 250 MG/5 ML UDC PO SCH ×3 (09:27→21:19)
[2016-09-18] MEDS: levETIRAcetam INJection 500 MG in D5W MINI-BAG PLUS 100 ML IV SCH ×2 (09:27→21:19)
[2016-09-18] MEDS: PANTOPRAZOLE 40MG INJ (PROTONIX) (C9113) IV SCH (09:27)
[2016-09-18] MEDS: NYSTATIN 100,000 UNITS/GM TOPICAL PWD 15 GM TOP SCH ×2 (09:28→21:20)
[2016-09-18] MEDS: POTASSIUM CHLORIDE 10% LIQ 20 MEQ/15 ML UDC PEG SCH ×2 (10:15→21:00)
[2016-09-18] MEDS: LACOSAMIDE 10MG/ML 20ML VIAL (VIMPAT) (C9254) IV SCH ×2 (11:31→21:20)
[2016-09-18] MEDS: PIPERACILLIN/TAZOBACTAM SOD 3.375 GM in D5W MINI-BAG PLUS 50 ML IV SCH ×2 (11:40→17:33)
--- NOTE | 2016-09-18 12:00 | IPN ---
DATE: 09/18/2016 65-year-old gentleman resting in bed on high-flow oxygen. No new issues this morning. OBJECTIVE: Temperature is 100 temporal, respiratory rate is 26, pulse is 102 and regular, blood pressure 135/66, SPO2 is 95% on high-flow oxygen. General: The patient does appear to be still somewhat lethargic this morning but he is able to respond to questions. HEENT: Eyes: PERRLA. Throat clear. Lungs: Diminished bibasilar breath sounds, occasional wheeze but clears with cough. Heart: Regular rhythm. Abdomen: Soft. Ostomy appears to be patent. Bowel sounds present. Extremities: No edema or calf tenderness. LABORATORY DATA: White count 18, hemoglobin is 7.8, platelets 669,000. Sodium 139, potassium 5.1, chloride 96, bicarb 41, anion gap 2, BUN 29, creatinine 1.0, glucose 137, magnesium 2.3, total bilirubin 1.2, AST 16, ALT 15, alkaline phosphatase 196, albumin is 1.4. Ultrasound the right upper extremities negative for DVT. The right jugular and central venous subclavian vein as well as cephalic vein could not be well-visualized. Abdominal ultrasound essentially unremarkable. ASSESSMENT/PLAN: 1. Ischemic bowel secondary to incarcerated hernia repaired emergently as indicated previously. Previously had hypothermia and sepsis. Being managed by Dr. Ackerman 2. Infectious diseases: Presumed underlying pneumonia as well as candidemia followed by Dr. Dale currently on Zosyn, vancomycin and Diflucan. 3. Acute hypoxic respiratory failure likely multifactorial, presumed pneumonia and pulmonary edema. He does continue with net negative Lasix, fluid restriction. 4. Atrial flutter appears to be refractory and is stable. Appreciate Dr. Barron's input. Continue on metoprolol and amiodarone. 5. History of seizure disorder. Continue him on Keppra. 6. Severe protein calorie malnutrition currently on total parental nutrition. Appreciate Dr. Ackerman's input managing this. 7. Multiple stage II ulcers with anasarca present on admission. Wound consult was placed. 8. GI prophylaxis per Dr. Johnson 9. Electrolyte abnormalities likely secondary to diuresis. Will replete as needed 10. Right arm swelling. Negative ultrasound for deep venous thrombosis (DVT). 11. Deep venous thrombosis (DVT) prophylaxis. Thromboembolic deterrent stockings (TEDS) and sequentials. DISPOSITION: Prognosis remains guarded. Appreciate input from Anderson Frye and Dr. Dale.
[2016-09-18] MEDS: SODIUM CHLORIDE 0.9% INJ 10 ML SYR IV PRN (15:48)
--- NOTE | 2016-09-18 16:30 | IPN ---
DATE: 09/18/2016 J seems to be doing a little better every day. He still has significant shortness of breath with an FiO2 of 60%. He is congested, there is a lot of secretions. He denies any pain. LABORATORY DATA: White count is 18 down from 25, hemoglobin 7.8, hematocrit 25.6, platelets 669, 88% neutrophils, 3% lymphocytes, 2% metamyelocytes. Sodium 139, potassium 5.1, chloride 96, bicarbonate 41, BUN 29, creatinine 1, glucose 137, calcium 7.9, magnesium 2.3, bilirubin 1.2, AST 16, ALT 15, alkaline phosphatase 196, CRP 16.8. Abdominal wound culture had Enterobacter cloacae which was only resistant to cefazolin, similar to endotracheal sputum culture done on 09/07/2016. Sputum culture from 09/16/2016, was negative. Urine culture from 09/12/2016, was negative. Fungal culture so far is negative and stool for Clostridium (C) difficile was negative. Maximum temperature (T-max) was 100.9, currently 98, pulse 109, respirations 28, blood pressure 128/62, oxygen saturation 90% on 60% FiO2. Heart: Normal S1, S2, tachycardiac. Lungs: Expiratory rhonchi bilaterally. Diminished breath sounds at the bases. Abdomen: Soft, nontender. Bowel sounds present. Midline incision with leticia in place. Mild erythema at the superior aspect and the middle aspect with some serous drainage. Extremities: Decreased edema, scrotal edema has diminished as well. Intake and output yesterday: Intake 3315, output 4660 with a negative balance of 1345. IMPRESSION: 1. Ischemic bowel obstruction secondary to incarcerated hernia with possibly postoperative abdominal wound infection with culture positive for Enterobacter, on IV Zosyn. 2. Acute respiratory failure. Being treated for pulmonary edema as well as presumed pneumonia with culture positive for Enterobacter, on IV Zosyn. 3. History of seizure disorder on Keppra. 4. Persistent fever. No culture positive for gram-positive and therefore vancomycin will be discontinued. He is also on IV fluconazole to cover for bowel maribell. If patient does not have enough IV access, the plan would be to remove the central line soon, we could switch his fluconazole to oral since he is tolerating tube feeds at this point. PLAN: Discontinue central line if you can find peripheral IVs, at least a couple if possible. Discontinue IV vancomycin, switch fluconazole to oral, he is currently day #6 of IV fluconazole.
[2016-09-18] MEDS: TAMSULOSIN 0.4 MG CAP PO SCH (21:00)
[2016-09-18] MEDS: LATANOPROST 0.005% OPHTH SOLN 2.5 ML OU SCH (21:20)
[2016-09-19] VITALS (16 sets, daily range): BP systolic 108–148; BP diastolic 59–76; O2SAT 94–96
[2016-09-19] MEDS: PIPERACILLIN/TAZOBACTAM SOD 3.375 GM in D5W MINI-BAG PLUS 50 ML IV SCH ×5 (00:33→23:33)
[2016-09-19] MEDS: ACETAMINOPHEN 325 MG/10.15 ML UDC GT PRN ×2 (00:34→12:38)
[2016-09-19] MEDS: LEVALBUTEROL 1.25 MG/0.5 ML CONCENTRATE NEB INH SCH ×4 (02:22→19:50)
[2016-09-19 05:24] LABS: DIFF SLIDE NUMBER 5; MEAN CORPUSCULAR HEMOGLOBIN 29.6 pg (27.0-33.0); MEAN CORPUSCULAR HGB CONC 30.9 g/dl (32.0-36.5); MEAN CORPUSCULAR VOLUME 95.7 fl (80.0-96.0); RED CELL DISTRIBUTION WIDTH 15.4 % (11.5-14.5); WHITE BLOOD COUNT 17.2 K/mm3 (4.0-10.0)
[2016-09-19] MEDS: HEPARIN SOD (PORCINE) 5000 UNITS/ML VIAL SC SCH ×3 (05:24→21:12)
[2016-09-19 05:29] LABS: PLATELET COUNT, AUTOMATED 770 k/mm3 (150-450)
[2016-09-19 05:32] LABS: ALBUMIN 1.4 GM/DL (3.2-5.2); ALBUMIN/GLOBULIN RATIO 0.25 (1.00-1.93); ALKALINE PHOSPHATASE 185 U/L (45-117); ALT/SGPT 14 U/L (12-78); ANION GAP 2 MEQ/L (8-16); AST/SGOT 17 U/L (15-37); BILIRUBIN,TOTAL 1.2 MG/DL (0.2-1.0); BLOOD UREA NITROGEN 30 MG/DL (7-18); CALCIUM LEVEL 7.9 MG/DL (8.8-10.2); CARBON DIOXIDE LEVEL 40 MEQ/L (21-32); CHLORIDE LEVEL 95 MEQ/L (98-107); CREATININE FOR GFR 1.04 MG/DL (0.70-1.30); GLOMERULAR FILTRATION RATE > 60.0 (>49); GLUCOSE, FASTING 98 MG/DL (80-110); MAGNESIUM LEVEL 2.1 MG/DL (1.8-2.4); POTASSIUM SERUM 5.1 MEQ/L (3.5-5.1); SODIUM LEVEL 137 MEQ/L (136-145); TOTAL PROTEIN 7.1 GM/DL (6.4-8.2)
[2016-09-19 06:15] LABS: BANDS 1 % (< 11); EOSINOPHILS 1 % (0-5)
[2016-09-19 06:16] LABS: HYPOCHROMASIA 1+
[2016-09-19 06:17] LABS: ANISOCYTOSIS 1+; STOMATOCYTES 2+
[2016-09-19] MEDS: FLUCONAZOLE 400 MG in APPROPRIATE DILUENT 1 EA IV SCH (08:48)
[2016-09-19] MEDS: AMIODARONE 200 MG TAB (PACERONE) NG SCH ×2 (08:48→20:58)
[2016-09-19] MEDS: VALPROIC ACID SYRUP 250 MG/5 ML UDC PO SCH ×3 (08:49→20:58)
[2016-09-19] MEDS: PANTOPRAZOLE 40MG INJ (PROTONIX) (C9113) IV SCH (08:50)
[2016-09-19] MEDS: levETIRAcetam INJection 500 MG in D5W MINI-BAG PLUS 100 ML IV SCH ×2 (08:50→21:13)
[2016-09-19] MEDS: LACOSAMIDE 10MG/ML 20ML VIAL (VIMPAT) (C9254) IV SCH ×2 (08:50→21:00)
[2016-09-19] MEDS: NYSTATIN 100,000 UNITS/GM TOPICAL PWD 15 GM TOP SCH ×2 (08:51→21:13)
[2016-09-19] MEDS ORDERED: FUROSEMIDE 40 MG/4 ML VIAL (J1940) IV ONE (10:30)
--- NOTE | 2016-09-19 10:37 | IPN ---
DATE: 09/19/2016 65-year-old gentleman seen at bedside. No overnight issues except for this morning, apparently his oxygen mask did get knocked off for awhile and his oxygen saturations had dropped. Currently he is back up in the 89-90% range and appears to be relatively comfortable regarding his breathing. He denies any significant abdominal pain at this time. Nursing informed me that he did have quite a bit of residuals regarding his tube feeds last night, which were discontinued temporarily and resumed at a lower rate this morning. OBJECTIVE: Temperature is 99.6, pulse 114, respiratory rate 24, blood pressure (BP) 132/74, SpO2 is 90% on high-flow. HEENT: Unremarkable. Lungs: Diminished bibasilar breath sounds, expiratory wheeze occasionally. Heart: Regular rhythm but does appear to be tachycardiac. Abdomen: Soft. Ostomy is patent. Extremities: Some trace edema at the ankles. Otherwise unremarkable. No calf tenderness. LABORATORIES: White count 17.2, down from 18,000, hemoglobin 7.6, platelets 770,000. Sodium 137, potassium 5.1, chloride 95, bicarbonate 40, anion gap 2, BUN is 30, creatinine 1.04, glucose 98, calcium 7.9, total bilirubin 1.2, AST 17, ALT 14, alkaline phosphatase 185. ASSESSMENT AND PLAN: 1. Abdominal pain with ischemic bowel and incarcerated hernia. Postoperative abdominal wound infection followed by Dr. Ackerman and Dr. Dale. His wound culture was positive for Enterobacter and he continues on intravenous (IV) Zosyn. 2. Acute respiratory failure with pulmonary edema superimposed on pneumonia. Again, he continues on IV Zosyn and trying to diurese him as well. 3. History of seizure disorder. Continue on valproic acid and Keppra. No issues currently. 4. Atrial flutter. Appreciate Dr. Barron 's input. Continue on metoprolol and amiodarone. 5. Severe protein calorie malnutrition. Currently on tube feeding. Appreciate Dr. Ackerman's input and assistance with the enteral feedings per feeding tube. 6. Multiple stage II ulcers with anasarca present on admission with poor albumin and protein calorie malnutrition. This will be an ongoing issue for him most likely. Wound consult is appreciated. 7. Gastrointestinal (GI) prophylaxis per critical care. 8. Electrolyte abnormalities. Previously, however, this appears to be repleted and doing well. I will hold his potassium supplementation today since his potassium is on the higher end of normal 9. Right arm swelling with negative ultrasound for deep venous thrombosis (DVT). 9. Deep venous thrombosis prophylaxis. Thromboembolic deterrent (BECCA) and sequential. DISPOSITION: His prognosis continues to be guarded. Appreciate input from Dr. Ackerman, Dr. Barron and Dr. Dale.
--- NOTE | 2016-09-19 16:38 | REP ---
Procedure: PICC line insertion with Mark The procedure was performed under the direct supervision of Dr. Gee. The risks and benefits of the procedure were explained and informed consent was obtained by the health care proxy. The left basilic vein was localized using ultrasound guidance. The skin was prepped and draped in a sterile fashion. 2% lidocaine was used as a local anesthetic. Using ultrasound guidance the basilic vein was cannulated and a 0.018 guidewire was inserted and advanced to the SVC using fluoroscopic guidance. The needle was removed and a 5.5 Scottish dilator and peel-away sheath was inserted over the guide wire. A 5.5 Scottish dual lumen catheter was cut to length of 42 cm. The dilator was removed and the catheter was inserted over the guide wire with the tip ending in the SVC. The peel-away sheath was removed and the catheter was flushed with heparinized saline as per Hospital protocol. The catheter was affixed to the skin and a sterile dressing was applied. The the patient tolerated the procedure well and there were no immediate complications. 0.3 minutes of fluoro time was utilized for this procedure. Reviewed by AJAY Morocho 09/19/2016 04:25 PSigned by Damian Gee MD 09/19/2016 04:29 P
[2016-09-19] MEDS: SODIUM CHLORIDE 0.9% INJ 10 ML SYR IV SCH (17:51)
[2016-09-19] MEDS: TAMSULOSIN 0.4 MG CAP PO SCH (20:38)
[2016-09-19] MEDS: ACETAMINOPHEN 650 MG SUPP PR PRN (21:12)
[2016-09-19] MEDS: LATANOPROST 0.005% OPHTH SOLN 2.5 ML OU SCH (21:13)
[2016-09-19] MEDS: SODIUM CHLORIDE 0.9% INJ 10 ML SYR IV PRN (21:14)
[2016-09-19] MEDS: METOPROLOL 5 MG/5 ML VIAL IV PRN (21:20)
[2016-09-20] VITALS (14 sets, daily range): BP systolic 111–153; BP diastolic 54–89; O2SAT 92
[2016-09-20] MEDS: SODIUM CHLORIDE 0.9% INJ 10 ML SYR IV PRN ×2 (00:44→21:20)
[2016-09-20] MEDS: LEVALBUTEROL 1.25 MG/0.5 ML CONCENTRATE NEB INH SCH ×4 (02:21→19:48)
[2016-09-20] MEDS: SODIUM CHLORIDE 0.9% INJ 10 ML SYR IV SCH ×2 (05:42→18:20)
[2016-09-20] MEDS: PIPERACILLIN/TAZOBACTAM SOD 3.375 GM in D5W MINI-BAG PLUS 50 ML IV SCH ×3 (05:42→18:20)
[2016-09-20] MEDS: HEPARIN SOD (PORCINE) 5000 UNITS/ML VIAL SC SCH ×3 (05:42→21:20)
[2016-09-20 06:15] LABS: ANION GAP 2 MEQ/L (8-16); BLOOD UREA NITROGEN 28 MG/DL (7-18); CALCIUM LEVEL 8.1 MG/DL (8.8-10.2); CARBON DIOXIDE LEVEL 43 MEQ/L (21-32); CHLORIDE LEVEL 95 MEQ/L (98-107); CREATININE FOR GFR 1.01 MG/DL (0.70-1.30); GLOMERULAR FILTRATION RATE > 60.0 (>49); GLUCOSE, FASTING 86 MG/DL (80-110); POTASSIUM SERUM 4.1 MEQ/L (3.5-5.1); SODIUM LEVEL 140 MEQ/L (136-145)
[2016-09-20 06:25] LABS: BASO # 0.2 K/mm3 (0.0-0.2); BASO % 1.5 % (0.0-1.0); EOS # 0.2 K/mm3 (0.0-0.50); EOS % 1.2 % (0.0-3.0); LARGE UNSTAINED CELL # 0.3 K/mm3 (0.0-0.4); LARGE UNSTAINED CELL % 2.3 % (0.0-4.0); LYMPH % 4.8 % (24.0-44.0); MEAN CORPUSCULAR HEMOGLOBIN 28.3 pg (27.0-33.0); MEAN CORPUSCULAR HGB CONC 30.2 g/dl (32.0-36.5); MEAN CORPUSCULAR VOLUME 93.8 fl (80.0-96.0); MONO # 1.3 K/mm3 (0.0-0.8); MONO % 8.9 % (0.0-5.0); NEUTROPHILS # 11.6 K/mm3 (1.8-7.7); NEUTROPHILS % 81.4 % (36.0-66.0); PLATELET COUNT, AUTOMATED 890 k/mm3 (150-450); RED CELL DISTRIBUTION WIDTH 15.6 % (11.5-14.5)
[2016-09-20 06:30] LABS: WHITE BLOOD COUNT 14.2 K/mm3 (4.0-10.0)
[2016-09-20] MEDS: FLUCONAZOLE 400 MG in APPROPRIATE DILUENT 1 EA IV SCH (07:50)
--- NOTE | 2016-09-20 08:10 | REP ---
Portable chest, 09/20/2016, 05:08 a.m., single frontal view, patient sitting: Comparison is 2016. Bilateral alveolar and interstitial infiltrates are again identified. Cardiac size appears normal. The nasogastric tube has been removed. Impression: Diffuse bilateral infiltrates. Signed by Ariel Khan MD 09/20/2016 08:02 A
[2016-09-20] MEDS: AMIODARONE 200 MG TAB (PACERONE) NG SCH ×2 (09:17→20:33)
[2016-09-20] MEDS: levETIRAcetam INJection 500 MG in D5W MINI-BAG PLUS 100 ML IV SCH ×2 (09:18→20:33)
[2016-09-20] MEDS: VALPROIC ACID SYRUP 250 MG/5 ML UDC PO SCH ×3 (09:18→20:33)
[2016-09-20] MEDS: PANTOPRAZOLE 40MG INJ (PROTONIX) (C9113) IV SCH (09:20)
[2016-09-20] MEDS: LACOSAMIDE 10MG/ML 20ML VIAL (VIMPAT) (C9254) IV SCH ×2 (09:22→20:33)
[2016-09-20] MEDS: NYSTATIN 100,000 UNITS/GM TOPICAL PWD 15 GM TOP SCH ×2 (09:23→20:33)
--- NOTE | 2016-09-20 11:09 | IPNPDOC ---
Date Seen The patient was seen on 09/20/16. Progress Note SUBJECTIVE: Patient complained of abdominal discomfort, mumbling things, Had fever last night again, still requiring 50% oxygen by ventimask. pulled out NG tube last night. PHYSICAL EXAMINATION: VITAL SIGNS: Please see below. GENERAL: awake and alert but confused. HEENT:Normocephalic atraumatic. Moist mucous membranes, anicteric eyes. CARDIOVASCULAR:irregular and tachycardic,no gallop or rub or murmur. RESPIRATORY: bilateral diffuse crackles, decreased breath sounds at the bases. ABDOMINAL: soft, bowel sounds sluggish , ostomy present. EXTREMITIES: trace edema. NEUROLOGICAL: no focal neurodeficits. LABORATORY DATA: Please see below. MICROBIOLOGY: Please see below. ASSESSMENT AND PLAN: 1. Small bowel obstruction due to internal hernia with ischemic and incarcerated bowel loop. s/p exploratory laparotomy , lysis of adhesions, bowel resection ostomy creation on 09/04/16. Now with Postoperative abdominal wound infection followed by Dr. Ackerman and Dr. Dale. His wound culture was positive for Enterobacter and he continues on intravenous (IV) Zosyn. 2. Acute respiratory failure with hypoxia due to pulmonary edema and pneumonia. Again, he continues on IV Zosyn and trying to diurese him as well. 3. History of seizure disorder. Continue on valproic acid and Keppra. No issues currently. 4. Atrial flutter. Appreciate Dr. Barron 's input. Continue on metoprolol and amiodarone. 5. Severe protein calorie malnutrition. Was on tube feeding but NG tube out last night , further dietary reccomendation as per Dr Ackerman. 6. Multiple stage II ulcers with anasarca present on admission with poor albumin and protein calorie malnutrition. This will be an ongoing issue for him most likely. Wound consult is appreciated. 7. Gastrointestinal (GI) prophylaxis per critical care. 8. Deep venous thrombosis prophylaxis. Thromboembolic deterrent (BECCA) and sequential. VS, I&O, 24H, Fishbone Vital Signs/I&O Vital Signs Date Time Temp Pulse Resp B/P (MAP) Pulse Ox O2 Delivery O2 Flow Rate FiO2 09/20/16 06:01 93 22 92 High Flow Mask 50 09/20/16 04:00 99.3 148/69 (95) I&O- Last 24 Hours up to 6 AM 09/20/16 06:00 Intake Total 1395 ml Output Total 3475 ml Balance -2080 ml Laboratory Data 24H LABS Laboratory Tests 2 09/20/16 05:44: White Blood Count 14.2H, Red Blood Count 2.26L, Hemoglobin 6.4*L, Hematocrit 21.2L, Mean Corpuscular Volume 93.8, Mean Corpuscular Hemoglobin 28.3, Mean Corpuscular Hemoglobin Concent 30.2L, Red Cell Distribution Width 15.6H, Platelet Count 890H, Neutrophils (%) (Auto) 81.4H, Lymphocytes (%) (Auto) 4.8L, Monocytes (%) (Auto) 8.9H, Eosinophils (%) (Auto) 1.2, Basophils (%) (Auto) 1.5H , Neutrophils # (Auto) 11.6H, Lymphocytes # (Auto) 1.0L, Monocytes # (Auto) 1.3H , Eosinophils # (Auto) 0.2, Basophils # (Auto) 0.2, Large Unclassified Cells % 2.3, Large Unclassified Cells # 0.3, Anion Gap 2L, Glomerular Filtration Rate > 60.0, Blood Urea Nitrogen 28H, Creatinine 1.01, Sodium Level 140, Potassium Level 4.1, Chloride Level 95L, Carbon Dioxide Level 43H, Calcium Level 8.1L, C- Reactive Protein, Quantitative 10.30H CBC/BMP Laboratory Tests 09/20/16 05:44 Red Blood Count 2.26 L, Mean Corpuscular Volume 93.8, Mean Corpuscular Hemoglobin 28.3, Mean Corpuscular Hemoglobin Concent 30.2 L, Red Cell Distribution Width 15.6 H, Neutrophils (%) (Auto) 81.4 H, Lymphocytes (%) (Auto ) 4.8 L, Monocytes (%) (Auto) 8.9 H, Eosinophils (%) (Auto) 1.2, Basophils (%) ( Auto) 1.5 H, Neutrophils # (Auto) 11.6 H, Lymphocytes # (Auto) 1.0 L, Monocytes # (Auto) 1.3 H, Eosinophils # (Auto) 0.2, Basophils # (Auto) 0.2, Calcium Level 8.1 L Microbiology Microbiology 09/12/16 Fungal Smear, Received Pending 09/12/16 Blood Fungal Culture, Received Pending 09/10/16 Blood Culture - Final, Complete NO GROWTH AFTER 5 DAYS 09/10/16 Blood Culture - Final, Complete NO GROWTH AFTER 5 DAYS 09/10/16 Blood Culture - Final, Complete NO GROWTH AFTER 5 DAYS 09/10/16 Blood Culture - Final, Complete NO GROWTH AFTER 5 DAYS 09/12/16 Clostridium difficile (PCR) - Final, Complete 09/16/16 Gram Stain - Final, Complete 09/16/16 Sputum Culture - Final, Complete 09/13/16 Urine Culture - Final, Complete 09/16/16 Gram Stain - Final, Complete 09/16/16 Wound Culture - Final, Complete Enterobacter Cloacae Complex MAEVE GRIJALVA MD Sep 20, 2016 11:09
[2016-09-20] MEDS: ACETAMINOPHEN 325 MG/10.15 ML UDC GT PRN (14:05)
[2016-09-20] MEDS: LATANOPROST 0.005% OPHTH SOLN 2.5 ML OU SCH (20:33)
[2016-09-20] MEDS: TAMSULOSIN 0.4 MG CAP PO SCH (20:33)
[2016-09-21] VITALS (12 sets, daily range): BP systolic 130–164; BP diastolic 67–82; O2SAT 95
[2016-09-21] MEDS: ACETAMINOPHEN 325 MG/10.15 ML UDC GT PRN (00:36)
[2016-09-21] MEDS: PIPERACILLIN/TAZOBACTAM SOD 3.375 GM in D5W MINI-BAG PLUS 50 ML IV SCH ×5 (00:36→23:07)
[2016-09-21] MEDS: SODIUM CHLORIDE 0.9% INJ 10 ML SYR IV PRN (00:36)
[2016-09-21] MEDS: LEVALBUTEROL 1.25 MG/0.5 ML CONCENTRATE NEB INH SCH ×4 (01:36→19:39)
[2016-09-21] MEDS: SODIUM CHLORIDE 0.9% INJ 10 ML SYR IV SCH ×2 (06:00→18:29)
[2016-09-21] MEDS: HEPARIN SOD (PORCINE) 5000 UNITS/ML VIAL SC SCH ×3 (06:17→21:01)
[2016-09-21 06:48] LABS: BASO # 0.1 K/mm3 (0.0-0.2); BASO % 1.1 % (0.0-1.0); EOS # 0.1 K/mm3 (0.0-0.50); EOS % 1.1 % (0.0-3.0); LARGE UNSTAINED CELL # 0.3 K/mm3 (0.0-0.4); LARGE UNSTAINED CELL % 2.6 % (0.0-4.0); LYMPH # 1.1 K/mm3 (1.5-4.5); MEAN CORPUSCULAR HEMOGLOBIN 28.8 pg (27.0-33.0); MEAN CORPUSCULAR HGB CONC 31.9 g/dl (32.0-36.5); MEAN CORPUSCULAR VOLUME 90.5 fl (80.0-96.0); NEUTROPHILS # 9.9 K/mm3 (1.8-7.7); NEUTROPHILS % 81.2 % (36.0-66.0); PLATELET COUNT, AUTOMATED 879 k/mm3 (150-450); RED CELL DISTRIBUTION WIDTH 15.9 % (11.5-14.5); WHITE BLOOD COUNT 12.2 K/mm3 (4.0-10.0)
[2016-09-21 06:53] LABS: ANION GAP 3 MEQ/L (8-16); BLOOD UREA NITROGEN 21 MG/DL (7-18); CALCIUM LEVEL 8.1 MG/DL (8.8-10.2); CARBON DIOXIDE LEVEL 40 MEQ/L (21-32); CHLORIDE LEVEL 97 MEQ/L (98-107); GLOMERULAR FILTRATION RATE > 60.0 (>49); GLUCOSE, FASTING 88 MG/DL (80-110); POTASSIUM SERUM 3.7 MEQ/L (3.5-5.1); SODIUM LEVEL 140 MEQ/L (136-145)
[2016-09-21] MEDS: FLUCONAZOLE 400 MG in APPROPRIATE DILUENT 1 EA IV SCH (07:31)
[2016-09-21] MEDS: LACOSAMIDE 10MG/ML 20ML VIAL (VIMPAT) (C9254) IV SCH ×2 (09:19→21:00)
[2016-09-21] MEDS: PANTOPRAZOLE 40MG INJ (PROTONIX) (C9113) IV SCH (09:19)
[2016-09-21] MEDS: VALPROIC ACID SYRUP 250 MG/5 ML UDC PO SCH ×3 (09:20→17:04)
[2016-09-21] MEDS: levETIRAcetam INJection 500 MG in D5W MINI-BAG PLUS 100 ML IV SCH ×2 (09:20→20:50)
[2016-09-21] MEDS: AMIODARONE 200 MG TAB (PACERONE) NG SCH ×2 (09:21→20:58)
[2016-09-21] MEDS: NYSTATIN 100,000 UNITS/GM TOPICAL PWD 15 GM TOP SCH ×2 (09:21→21:01)
[2016-09-21] MEDS ORDERED: AMINO AC/ELECTROLYTE/DEX/CALC 2,000 ML IV SCH (18:00)
[2016-09-21] MEDS ORDERED: FAT EMULSION IV 20% 500 ML IV SCH (18:00)
[2016-09-21] MEDS: HumaLOG INSULIN (NovoLOG) PER UNIT SC SCH ×2 (19:00→23:44)
[2016-09-21] MEDS: VALPROATE SOD INJ 500 MG in D5W 50 ML IV SCH (19:29)
[2016-09-21] MEDS: TAMSULOSIN 0.4 MG CAP PO SCH (20:58)
[2016-09-21] MEDS: LATANOPROST 0.005% OPHTH SOLN 2.5 ML OU SCH (21:00)
[2016-09-22] VITALS (10 sets, daily range): BP systolic 141–165; BP diastolic 70–85
[2016-09-22] MEDS: LEVALBUTEROL 1.25 MG/0.5 ML CONCENTRATE NEB INH SCH ×4 (03:02→19:24)
[2016-09-22] MEDS: VALPROATE SOD INJ 500 MG in D5W 50 ML IV SCH ×3 (04:05→19:45)
[2016-09-22] MEDS: HEPARIN SOD (PORCINE) 5000 UNITS/ML VIAL SC SCH ×3 (05:44→21:24)
[2016-09-22] MEDS: SODIUM CHLORIDE 0.9% INJ 10 ML SYR IV SCH ×2 (05:44→18:25)
[2016-09-22] MEDS: PIPERACILLIN/TAZOBACTAM SOD 3.375 GM in D5W MINI-BAG PLUS 50 ML IV SCH ×3 (05:44→18:24)
[2016-09-22] MEDS: HumaLOG INSULIN (NovoLOG) PER UNIT SC SCH ×3 (05:56→18:26)
[2016-09-22 05:57] LABS: MEAN CORPUSCULAR HEMOGLOBIN 28.9 pg (27.0-33.0); MEAN CORPUSCULAR HGB CONC 31.7 g/dl (32.0-36.5); MEAN CORPUSCULAR VOLUME 91.1 fl (80.0-96.0); RED CELL DISTRIBUTION WIDTH 16.1 % (11.5-14.5); WHITE BLOOD COUNT 12.4 K/mm3 (4.0-10.0)
[2016-09-22 06:46] LABS: ALBUMIN 1.5 GM/DL (3.2-5.2); ALBUMIN/GLOBULIN RATIO 0.28 (1.00-1.93); ALKALINE PHOSPHATASE 182 U/L (45-117); ALT/SGPT 16 U/L (12-78); ANION GAP 5 MEQ/L (8-16); AST/SGOT 16 U/L (15-37); BILIRUBIN,TOTAL 1.2 MG/DL (0.2-1.0); BLOOD UREA NITROGEN 20 MG/DL (7-18); CALCIUM LEVEL 7.9 MG/DL (8.8-10.2); CARBON DIOXIDE LEVEL 37 MEQ/L (21-32); CHLORIDE LEVEL 98 MEQ/L (98-107); GLOMERULAR FILTRATION RATE > 60.0 (>49); GLUCOSE, FASTING 102 MG/DL (80-110); POTASSIUM SERUM 3.9 MEQ/L (3.5-5.1); SODIUM LEVEL 140 MEQ/L (136-145); TOTAL PROTEIN 6.9 GM/DL (6.4-8.2)
[2016-09-22] MEDS: FLUCONAZOLE 400 MG in APPROPRIATE DILUENT 1 EA IV SCH (08:19)
[2016-09-22] MEDS: levETIRAcetam INJection 500 MG in D5W MINI-BAG PLUS 100 ML IV SCH ×2 (08:19→21:26)
[2016-09-22] MEDS: PANTOPRAZOLE 40MG INJ (PROTONIX) (C9113) IV SCH (08:20)
[2016-09-22] MEDS: AMIODARONE 200 MG TAB (PACERONE) NG SCH (08:21)
[2016-09-22] MEDS: LACOSAMIDE 10MG/ML 20ML VIAL (VIMPAT) (C9254) IV SCH ×2 (11:00→20:39)
[2016-09-22] MEDS: NYSTATIN 100,000 UNITS/GM TOPICAL PWD 15 GM TOP SCH ×2 (11:01→21:23)
--- NOTE | 2016-09-22 12:02 | IPNPDOC ---
Date Seen The patient was seen on 09/22/16. Progress Note SUBJECTIVE: Patient requiring less oxygen , having swallowing difficulties and we could not put in an NG tube , all medications have been changed to IV . no fever or chills. Spoke with [facility] staff as baseline he is mobile, independent in ADLs, no swallowing issues. PHYSICAL EXAMINATION: VITAL SIGNS: Please see below. GENERAL: awake and alert , does have mild mental retardation HEENT:Normocephalic atraumatic. Moist mucous membranes, anicteric eyes. CARDIOVASCULAR:irregular and tachycardic,no gallop or rub or murmur. RESPIRATORY: bilateral diffuse crackles, decreased breath sounds at the bases. ABDOMINAL: soft, bowel sounds sluggish , ostomy present. EXTREMITIES: trace edema. NEUROLOGICAL: no focal neuro deficits. LABORATORY DATA: Please see below. MICROBIOLOGY: Please see below. ASSESSMENT AND PLAN: 1. Small bowel obstruction due to internal hernia with ischemic and incarcerated bowel loop. s/p exploratory laparotomy , lysis of adhesions, bowel resection ostomy creation on 09/04/16. Now with Postoperative abdominal wound infection followed by Dr. Ackerman and Dr. Dale. His wound culture was positive for Enterobacter and he continues on intravenous (IV) Zosyn. Also on Diflucan for possible intraabdominal fungal infection 2. Acute respiratory failure with hypoxia due to pulmonary edema and pneumonia. he continues on antibiotics and trying to diurese him as well. 3. History of seizure disorder. Continue on valproic acid and Keppra and vimpat. No issues currently. 4. Atrial flutter. Continue on metoprolol and amiodarone. 5. Severe protein calorie malnutrition.On TPN. 6. Multiple stage II ulcers with anasarca present on admission with poor albumin and protein calorie malnutrition. This will be an ongoing issue for him most likely. Wound consult is appreciated. 7. Gastrointestinal (GI) prophylaxis per critical care. 8. Deep venous thrombosis prophylaxis. Thromboembolic deterrent (BECCA) and sequential. 9. Mild learning disability: a resident of [facility]. At baseline independent in ADLs. VS, I&O, 24H, Fishbone Vital Signs/I&O Vital Signs Date Time Temp Pulse Resp B/P (MAP) Pulse Ox O2 Delivery O2 Flow Rate FiO2 09/22/16 08:00 High Flow Mask 8.0 09/22/16 08:00 99.5 92 18 141/74 (96) 98 09/21/16 11:50 40 I&O- Last 24 Hours up to 6 AM 09/22/16 06:00 Intake Total 2125 ml Output Total 1630 ml Balance 495 ml Laboratory Data 24H LABS Laboratory Tests 2 09/21/16 18:54: Bedside Glucose (Misc Panel) 90 09/21/16 23:06: Bedside Glucose (Misc Panel) 114 09/22/16 05:43: Bedside Glucose (Misc Panel) 112 09/22/16 05:49: Anion Gap 5L, Glomerular Filtration Rate > 60.0, Blood Urea Nitrogen 20H, Creatinine 1.00, Sodium Level 140, Potassium Level 3.9, Chloride Level 98, Carbon Dioxide Level 37H, Calcium Level 7.9L, Aspartate Amino Transf (AST/SGOT) 16, Alanine Aminotransferase (ALT/SGPT) 16, Alkaline Phosphatase 182H, Total Bilirubin 1.2H, Total Protein 6.9, Albumin 1.5L, Albumin/Globulin Ratio 0.28L CBC/BMP Laboratory Tests 09/22/16 05:49 Red Blood Count 2.74 L, Mean Corpuscular Volume 91.1, Mean Corpuscular Hemoglobin 28.9, Mean Corpuscular Hemoglobin Concent 31.7 L, Red Cell Distribution Width 16.1 H, Calcium Level 7.9 L, Aspartate Amino Transf (AST/SGOT ) 16, Alanine Aminotransferase (ALT/SGPT) 16, Alkaline Phosphatase 182 H, Total Bilirubin 1.2 H, Total Protein 6.9, Albumin 1.5 L Microbiology Microbiology 09/12/16 Fungal Smear, Received Pending 09/12/16 Blood Fungal Culture, Received Pending 09/12/16 Clostridium difficile (PCR) - Final, Complete 09/16/16 Gram Stain - Final, Complete 09/16/16 Sputum Culture - Final, Complete 09/13/16 Urine Culture - Final, Complete 09/16/16 Gram Stain - Final, Complete 09/16/16 Wound Culture - Final, Complete Enterobacter Cloacae Complex MAEVE GRIJALVA MD Sep 22, 2016 12:02
[2016-09-22] MEDS: AMIODARONE HCL 150 MG in APPROPRIATE DILUENT 1 EA IV SCH (12:09)
[2016-09-22] MEDS: FUROSEMIDE 20 MG/2 ML VIAL (J1940) IV SCH (13:09)
[2016-09-22] MEDS ORDERED: LIDOCAINE 2% 5ML JELLY UROJET TOP PRN (14:00)
[2016-09-22] MEDS: LIDOCAINE 2% JELLY 30 ML TOP PRN (16:31)
[2016-09-22] MEDS ORDERED: MULTIVITAMIN -ADULT INJECTION 10 ML, CR/CU/SE/MN/ZN INJ 1 ML in AMINO AC/ELECTROLYTE/DE... IV SCH (18:00)
[2016-09-22] MEDS ORDERED: FAT EMULSION IV 20% 500 ML IV SCH (18:00)
[2016-09-22] MEDS: ACETAMINOPHEN 650 MG SUPP PR PRN (18:24)
[2016-09-22] MEDS: LATANOPROST 0.005% OPHTH SOLN 2.5 ML OU SCH (21:23)
[2016-09-23] VITALS (9 sets, daily range): BP systolic 127–167; BP diastolic 62–88
[2016-09-23] MEDS: HumaLOG INSULIN (NovoLOG) PER UNIT SC SCH ×3 (00:27→12:13)
[2016-09-23] MEDS: PIPERACILLIN/TAZOBACTAM SOD 3.375 GM in D5W MINI-BAG PLUS 50 ML IV SCH ×5 (00:27→23:33)
[2016-09-23] MEDS: LEVALBUTEROL 1.25 MG/0.5 ML CONCENTRATE NEB INH SCH ×4 (02:29→19:59)
[2016-09-23] MEDS: VALPROATE SOD INJ 500 MG in D5W 50 ML IV SCH ×3 (03:03→19:08)
[2016-09-23] MEDS: SODIUM CHLORIDE 0.9% INJ 10 ML SYR IV SCH ×2 (05:18→17:54)
[2016-09-23] MEDS: HEPARIN SOD (PORCINE) 5000 UNITS/ML VIAL SC SCH ×3 (05:18→21:25)
[2016-09-23] MEDS: LIDOCAINE 2% JELLY 30 ML TOP PRN (05:19)
[2016-09-23 06:02] LABS: MEAN CORPUSCULAR HEMOGLOBIN 29.9 pg (27.0-33.0); MEAN CORPUSCULAR HGB CONC 32.7 g/dl (32.0-36.5); MEAN CORPUSCULAR VOLUME 91.5 fl (80.0-96.0); RED CELL DISTRIBUTION WIDTH 16.5 % (11.5-14.5); WHITE BLOOD COUNT 14.8 K/mm3 (4.0-10.0)
[2016-09-23 06:15] LABS: INR 1.3
[2016-09-23 06:36] LABS: ALBUMIN 1.5 GM/DL (3.2-5.2); ALBUMIN/GLOBULIN RATIO 0.27 (1.00-1.93); ALKALINE PHOSPHATASE 173 U/L (45-117); ALT/SGPT 14 U/L (12-78); ANION GAP 5 MEQ/L (8-16); AST/SGOT 15 U/L (15-37); BLOOD UREA NITROGEN 19 MG/DL (7-18); CALCIUM LEVEL 7.9 MG/DL (8.8-10.2); CARBON DIOXIDE LEVEL 37 MEQ/L (21-32); CHLORIDE LEVEL 97 MEQ/L (98-107); GLOMERULAR FILTRATION RATE > 60.0 (>49); GLUCOSE, FASTING 99 MG/DL (80-110); POTASSIUM SERUM 3.6 MEQ/L (3.5-5.1); SODIUM LEVEL 139 MEQ/L (136-145); TOTAL PROTEIN 7.1 GM/DL (6.4-8.2)
[2016-09-23] MEDS: levETIRAcetam INJection 500 MG in D5W MINI-BAG PLUS 100 ML IV SCH ×2 (09:40→20:12)
[2016-09-23] MEDS: FLUCONAZOLE 400 MG in APPROPRIATE DILUENT 1 EA IV SCH (09:40)
[2016-09-23] MEDS: FUROSEMIDE 20 MG/2 ML VIAL (J1940) IV SCH ×2 (09:41→21:24)
[2016-09-23] MEDS: AMIODARONE HCL 150 MG in APPROPRIATE DILUENT 1 EA IV SCH (09:41)
[2016-09-23] MEDS: PANTOPRAZOLE 40MG INJ (PROTONIX) (C9113) IV SCH (09:41)
[2016-09-23] MEDS: LACOSAMIDE 10MG/ML 20ML VIAL (VIMPAT) (C9254) IV SCH ×2 (09:42→21:23)
[2016-09-23] MEDS: NYSTATIN 100,000 UNITS/GM TOPICAL PWD 15 GM TOP SCH ×2 (09:42→21:23)
--- NOTE | 2016-09-23 15:10 | IPNPDOC ---
Date Seen The patient was seen on 09/23/16. Progress Note SUBJECTIVE: Patient requiring less oxygen , no fever or chills. Has lots of secretions which he cannot cough out and needs deep suctioning to remove. Continues to have swallowing difficulties. Awake alert cooperative and answering questions, remains tachypneic. NG tube was successfully placed today. Spoke with [facility] staff as baseline he is mobile, independent in ADLs, no swallowing issues. PHYSICAL EXAMINATION: VITAL SIGNS: Please see below. GENERAL: awake and alert , does have mild mental retardation HEENT:Normocephalic atraumatic. Moist mucous membranes, anicteric eyes. CARDIOVASCULAR:irregular and tachycardic,no gallop or rub or murmur. RESPIRATORY: bilateral diffuse crackles, decreased breath sounds at the bases. conducted sounds from the throat, wheezes present. ABDOMINAL: soft, bowel sounds sluggish , ostomy present. EXTREMITIES: trace edema. NEUROLOGICAL: no focal neuro deficits. LABORATORY DATA: Please see below. MICROBIOLOGY: Please see below. ASSESSMENT AND PLAN: 1. Small bowel obstruction due to internal hernia with ischemic and incarcerated bowel loop. s/p exploratory laparotomy , lysis of adhesions, bowel resection ostomy creation on 09/04/16. Now with Postoperative abdominal wound infection followed by Dr. Ackerman and Dr. Dale. His wound culture was positive for Enterobacter and he continues on intravenous (IV) Zosyn. Also on Diflucan for possible intraabdominal fungal infection 2. Acute respiratory failure with hypoxia due to pulmonary edema and pneumonia. he continues on antibiotics and trying to diurese him as well. 3. History of seizure disorder. Continue on valproic acid and Keppra and vimpat. No issues currently. will change to po fors when able to tolerate diet. 4. Atrial flutter. Continue on metoprolol and amiodarone. will change amiodarone to PO. Pateints dose needs to be reduced to 400 mg once a day from 5. Severe protein calorie malnutrition.On TPN. 6. Multiple stage II ulcers with anasarca present on admission with poor albumin and protein calorie malnutrition. This will be an ongoing issue for him . 7. Gastrointestinal (GI) prophylaxis to continue. 8. Deep venous thrombosis prophylaxis. Thromboembolic deterrent (BECCA) and sequential. 9. Mild learning disability: a resident of [facility]. At baseline independent in ADLs. VS, I&O, 24H, Fishbone Vital Signs/I&O Vital Signs Date Time Temp Pulse Resp B/P (MAP) Pulse Ox O2 Delivery O2 Flow Rate FiO2 09/23/16 12:00 Nasal Cannula 8.0 09/23/16 06:00 100 159/88 (111) 99 09/23/16 04:00 99.4 18 09/21/16 11:50 40 I&O- Last 24 Hours up to 6 AM 09/23/16 06:00 Intake Total 2730 ml Output Total 2225 ml Balance 505 ml Laboratory Data 24H LABS Laboratory Tests 2 09/22/16 18:20: Bedside Glucose (Misc Panel) 121H 09/23/16 00:22: Bedside Glucose (Misc Panel) 121H 09/23/16 05:08: Bedside Glucose (Misc Panel) 120H 09/23/16 05:35: Prothrombin Time 16.3H, Prothromb Time International Ratio 1.30, Magnesium Level 2.3 09/23/16 05:38: C-Reactive Protein, Quantitative 14.10H 09/23/16 05:40: Anion Gap 5L, Glomerular Filtration Rate > 60.0, Blood Urea Nitrogen 19H, Creatinine 0.80, Sodium Level 139, Potassium Level 3.6, Chloride Level 97L, Carbon Dioxide Level 37H, Calcium Level 7.9L, Aspartate Amino Transf (AST/SGOT) 15, Alanine Aminotransferase (ALT/SGPT) 14, Alkaline Phosphatase 173H, Total Bilirubin 1.0, Total Protein 7.1, Albumin 1.5L, Albumin/Globulin Ratio 0.27L 09/23/16 11:57: Bedside Glucose (Misc Panel) 120H CBC/BMP Laboratory Tests 09/23/16 05:40 Red Blood Count 2.72 L, Mean Corpuscular Volume 91.5, Mean Corpuscular Hemoglobin 29.9, Mean Corpuscular Hemoglobin Concent 32.7, Red Cell Distribution Width 16.5 H, Calcium Level 7.9 L, Aspartate Amino Transf (AST/SGOT ) 15, Alanine Aminotransferase (ALT/SGPT) 14, Alkaline Phosphatase 173 H, Total Bilirubin 1.0, Total Protein 7.1, Albumin 1.5 L Microbiology Microbiology 09/16/16 Gram Stain - Final, Complete 09/16/16 Sputum Culture - Final, Complete 09/13/16 Urine Culture - Final, Complete 09/16/16 Gram Stain - Final, Complete 09/16/16 Wound Culture - Final, Complete Enterobacter Cloacae Complex MAEVE GRIJALVA MD Sep 23, 2016 15:10
[2016-09-23] MEDS ORDERED: FAT EMULSION IV 20% 500 ML IV SCH (18:00)
[2016-09-23] MEDS ORDERED: AMINO AC/ELECTROLYTE/DEX/CALC 2,000 ML IV SCH (18:00)
[2016-09-23] MEDS: LATANOPROST 0.005% OPHTH SOLN 2.5 ML OU SCH (21:23)
[2016-09-24] VITALS (14 sets, daily range): BP systolic 75–132; BP diastolic 38–79; O2SAT 90
[2016-09-24] MEDS: LEVALBUTEROL 1.25 MG/0.5 ML CONCENTRATE NEB INH SCH ×2 (02:55→08:27)
[2016-09-24] MEDS: VALPROATE SOD INJ 500 MG in D5W 50 ML IV SCH ×2 (04:13→14:24)
[2016-09-24] MEDS ORDERED: ETOMIDATE INJ 20MG/10ML VIAL As Ordered ONE (04:40)
[2016-09-24] MEDS ORDERED: ROCURONIUM BROMIDE 50 MG/5 ML VIAL As Ordered ONE (04:41)
[2016-09-24] MEDS ORDERED: REFRIGERATOR IV KEYS XX PRN (05:00)
[2016-09-24] MEDS ORDERED: IPRATROPIUM 0.5MG/ALBUTEROL 2.5MG INH SOL UD 3ML (DUONEB)(J7620) As Ordered ONE (05:04)
[2016-09-24] MEDS ORDERED: ETOMIDATE INJ 20MG/10ML VIAL IV STA (05:06)
[2016-09-24 05:14] LABS: ABG BASE EXCESS 15.2 (-2.0-2.0); ABG HCO3 48.2 MEQ/L (22.0-26.0); ABG PARTIAL PRESSURE O2 60.2 mmHg (75.0-100.0); ABG STANDARD HCO3 38.7 MEQ/L (22.0-26.0)
[2016-09-24] MEDS ORDERED: ROCURONIUM BROMIDE 50 MG/5 ML VIAL IV ONE (05:15)
[2016-09-24 05:20] LABS: ABG PARTIAL PRESSURE CO2 156.7 mmHg (35.0-45.0); ABG pH (ARTERIAL) 7.106 UNITS (7.350-7.450)
[2016-09-24] MEDS: IPRATROPIUM 0.5MG/ALBUTEROL 2.5MG INH SOL UD 3ML (DUONEB)(J7620) NEB PRN ×2 (05:20→08:16)
[2016-09-24] MEDS ORDERED: MIDAZOLAM HCL 100 MG in D5W 80 ML IV SCH (05:30)
[2016-09-24] MEDS ORDERED: MIDAZOLAM INJ 2 MG/2 ML VIAL (J2250) IV PRN (05:30)
[2016-09-24] MEDS ORDERED: MORPHINE 2 MG/ML 1ML SYRINGE IV PRN (05:30)
[2016-09-24] MEDS ORDERED: PROPOFOL 1,000 MG in APPROPRIATE DILUENT 1 EA IV SCH (05:30)
[2016-09-24] MEDS: HEPARIN SOD (PORCINE) 5000 UNITS/ML VIAL SC SCH ×2 (05:54→14:00)
[2016-09-24] MEDS: PIPERACILLIN/TAZOBACTAM SOD 3.375 GM in D5W MINI-BAG PLUS 50 ML IV SCH ×2 (05:55→12:00)
[2016-09-24] MEDS: SODIUM CHLORIDE 0.9% INJ 10 ML SYR IV SCH (05:55)
[2016-09-24 06:18] LABS: ABG BASE EXCESS 12.6 (-2.0-2.0); ABG HCO3 41.1 MEQ/L (22.0-26.0); ABG STANDARD HCO3 36.3 MEQ/L (22.0-26.0); ABG TOTAL CO2 43.7 MEQ/L (23.0-31.0); ABG pH (ARTERIAL) 7.305 UNITS (7.350-7.450)
[2016-09-24 06:21] LABS: ABG PARTIAL PRESSURE CO2 84.5 mmHg (35.0-45.0)
[2016-09-24 06:29] LABS: ADD MORPHOLOGY? YES; BASO % 0.3 % (0.0-1.0); EOS # 0.1 K/mm3 (0.0-0.50); EOS % 0.9 % (0.0-3.0); LARGE UNSTAINED CELL # 0.1 K/mm3 (0.0-0.4); LARGE UNSTAINED CELL % 0.5 % (0.0-4.0); LYMPH # 0.4 K/mm3 (1.5-4.5); LYMPH % 2.1 % (24.0-44.0); MEAN CORPUSCULAR HEMOGLOBIN 29.3 pg (27.0-33.0); MEAN CORPUSCULAR HGB CONC 30.9 g/dl (32.0-36.5); MEAN CORPUSCULAR VOLUME 94.7 fl (80.0-96.0); MONO # 0.5 K/mm3 (0.0-0.8); MONO % 3.1 % (0.0-5.0); NEUTROPHILS # 15.6 K/mm3 (1.8-7.7); NEUTROPHILS % 93.1 % (36.0-66.0); PLATELET COUNT, AUTOMATED 684 k/mm3 (150-450); RED CELL DISTRIBUTION WIDTH 16.7 % (11.5-14.5); WHITE BLOOD COUNT 16.8 K/mm3 (4.0-10.0)
--- NOTE | 2016-09-24 06:43 | IPN ---
DATE: 09/24/2016 I was called by nursing staff that patient was not acting himself. Previously the night before the patient was alert and oriented times two and responsive, but currently earlier this morning at around 2 o'clock to 4 o'clock the patient was barely responsive to sternal rubbing and patient was seen and examined. He was not arousable, withdrawal from noxious stimuli, breathing into the 40s with very rapid shallow breaths. The patient does have a NG tube and residual volume is 40 as per nursing staff with a temperature of 99.4, heart rate of 102, blood pressure 108/60. The patient's oxygen saturation on the monitor was 86 and the patient was switched to 100% nonrebreather, still from 8 liter high flow, and patient still has a saturation of 86%. ABG was sent. Given patient's breathing very shallow into the 40s, decision was made to intubate the patient. Also given that patient had no mental status, the decision was made to intubate the patient. PHYSICAL EXAMINATION: General: Patient not responsive to sternal rubbing. Eyes open. Withdraws from pain. Tachypneic. HEENT: Frail. Bitemporal wasting. Cardiac: Tachycardia. Pulmonary: Tachypneic. Bilateral rhonchi. Shallow breaths. Abdomen: Soft. Hypoactive bowel sounds. Colostomy present. Extremities: Trace edema bilateral lower extremities. ASSESSMENT AND PLAN: 1. This is a 65-year-old male patient with underlying medical history from [facility] ([facility] Baseline mobile and independent of activities of daily living (ADLs) with no swallowing issues. Initially admitted with small bowel obstruction due to internal hernia with ischemic incarcerated loops of bowel status post exploratory laparotomy, lysis of adhesions, bowel resection and ostomy with recent acute hypoxic respiratory failure due to pneumonia and pulmonary edema who was extubated on NG tube feeding and also total parenteral nutrition (TPN), and hypercarbic respiratory failure. The patient on ventilator assist control (AC)/volume control 18, 360, PEEP of 10, titrate FiO2 to achieve a saturation above 90. Versed drip for sedation. Sedation medication. Chlorhexidine. Gastrointestinal (GI) prophylaxis. Pulmonary, Dr. Barrera, has been consulted. Daily x-rays. Repeat ABGs in one hour. ABGs prior to intubation 7.1, 156, 60.2, 48.2. Continues Zosyn. Followup sputum cultures. X-rays appreciated. Possibly due to aspiration pneumonia given this is the second time the patient has been intubated. Possibility of tracheostomy is likely. Will followup pulmonary recommendation. 2. Small bowel obstruction due to internal hernia with ischemic and incarcerated bowel loops status post exploratory laparotomy, lysis of adhesions, bowel resection and ostomy creation. Management by Dr. Ackerman and Dr. Dale. Patient on Zosyn. Cultures appreciated. Also on Diflucan. Further management as per day team. 3. History of seizure disorder. Patient on valproic acid, Keppra and Vimpat. 4. Atrial flutter. Patient on metoprolol and amiodarone. Telemetry monitoring. 5. Severe protein calorie malnutrition. TPN as per primary team. 6. Multiple stage 2 ulcers. TPN. pressure ulcer precaution. 8. GI prophylaxis. Protonix. 9. Deep vein thrombosis (DVT) prophylaxis. As per primary team. Patient on thromboembolic deterrent stockings (TEDS) and sequentials. 10. History of learning disabilities. Management as per primary team. Patient possibly needs a tracheostomy. Further management as per day team. Estimated critical time spent exclusive of procedure 35 minutes. The case discussed with Dr. Barrera who was consulted. GERMAND
--- NOTE | 2016-09-24 06:52 | RO ---
DATE OF PROCEDURE: 09/24/2016 REASON FOR INTUBATION: Hypoxic hypercarbic respiratory failure possibly secondary to aspiration. POSTPROCEDURE DIAGNOSIS: Hypoxic hypercarbic respiratory failure secondary to aspiration. PROCEDURE: Endotracheal intubation. SURGEON: Dr. Niurka Calle TRAIN ENGINEER: SEDATION: Patient was given 20 of etomidate and 30 mg of rocuronium. The patient was placed in supine position with a donut under the head in sniff position. The patient was bagged. Unfortunately, oxygen saturation did not go above 86. Subsequently the patient was given etomidate 20 mg and rocuronium 30 mg and GlideScope was used, size 8 ET tube was used. The patient's vocal cord was visualized and patient was subsequently intubated. CO2 monitor was used. Color change was observed. Bilateral breath sounds were heard. No gastric sound was heard. Lip line at 27 cm. The patient was placed on the ventilator and x-ray was ordered for confirmation. The patient tolerated the procedure with no complications.
[2016-09-24 06:54] LABS: ALBUMIN 1.4 GM/DL (3.2-5.2); ALBUMIN/GLOBULIN RATIO 0.25 (1.00-1.93); ALKALINE PHOSPHATASE 159 U/L (45-117); ALT/SGPT 13 U/L (12-78); ANION GAP 3 MEQ/L (8-16); AST/SGOT 12 U/L (15-37); BILIRUBIN,TOTAL 0.8 MG/DL (0.2-1.0); BLOOD UREA NITROGEN 24 MG/DL (7-18); CALCIUM LEVEL 7.9 MG/DL (8.8-10.2); CARBON DIOXIDE LEVEL 39 MEQ/L (21-32); CHLORIDE LEVEL 94 MEQ/L (98-107); CREATININE FOR GFR 0.91 MG/DL (0.70-1.30); GLOMERULAR FILTRATION RATE > 60.0 (>49); GLUCOSE, FASTING 104 MG/DL (80-110); MAGNESIUM LEVEL 2.3 MG/DL (1.8-2.4); POTASSIUM SERUM 3.9 MEQ/L (3.5-5.1); SODIUM LEVEL 136 MEQ/L (136-145)
[2016-09-24 07:14] LABS: ANISOCYTOSIS 1+; HYPOCHROMASIA 1+
[2016-09-24] MEDS: PANTOPRAZOLE 40MG INJ (PROTONIX) (C9113) IV SCH (08:21)
[2016-09-24] MEDS: LACOSAMIDE 10MG/ML 20ML VIAL (VIMPAT) (C9254) IV SCH (08:21)
[2016-09-24] MEDS: FUROSEMIDE 20 MG/2 ML VIAL (J1940) IV SCH (08:22)
[2016-09-24] MEDS: FLUCONAZOLE 400 MG in APPROPRIATE DILUENT 1 EA IV SCH (08:23)
[2016-09-24] MEDS: levETIRAcetam INJection 500 MG in D5W MINI-BAG PLUS 100 ML IV SCH (08:23)
[2016-09-24] MEDS: NYSTATIN 100,000 UNITS/GM TOPICAL PWD 15 GM TOP SCH (08:23)
[2016-09-24] MEDS: AMIODARONE HCL 150 MG in APPROPRIATE DILUENT 1 EA IV SCH (08:24)
[2016-09-24] MEDS: ACETAMINOPHEN 650 MG SUPP PR PRN (08:50)
[2016-09-24] MEDS ORDERED: CHLORHEXIDINE GLUCONATE 0.12 % 15ML UDC (PERIDEX ORAL RINSE) MT SCH (09:00)
[2016-09-24] MEDS ORDERED: ALBUTEROL SULFATE 2.5 MG/0.5 ML INH NEB SOLN NEB PRN (09:15)
--- NOTE | 2016-09-24 09:20 | REP ---
CHEST, PORTABLE, SINGLE VIEW: COMPARISON: 09/20/2016. Right upper lobe pleural and parenchymal opacity has not definitely changed. Diffuse left lung infiltrate has not definitely changed. The heart does not appear to be significantly enlarged. There is calcification of the thoracic aorta. Left central venous catheter is seen with the tip in the superior vena cava. Endotracheal tube is seen with the tip about 1 cm above the ernesto. Nasogastric tube traverses into the stomach. Signed by Ariel Shane MD 09/24/2016 07:43 P
[2016-09-24] MEDS ORDERED: IPRATROPIUM 0.5MG/ALBUTEROL 2.5MG INH SOL UD 3ML (DUONEB)(J7620) NEB SCH (12:00)
[2016-09-24] MEDS ORDERED: MORPHINE SULF IN 0.9% NACL 100 MG in APPROPRIATE DILUENT 1 EA IV SCH ×2 (13:07)
[2016-09-24] MEDS ORDERED: SCOPOLAMINE 1.5 MG TRANSDERMAL TD PRN (13:15)
[2016-09-24] MEDS ORDERED: FLEET ENEMA PR PRN (13:15)
[2016-09-24] MEDS ORDERED: LORazepam 2 MG/ML VIAL (J2060) IV PRN (13:15)
[2016-09-24] MEDS ORDERED: BISACODYL 10 MG SUPP PR PRN (13:15)
[2016-09-24] MEDS ORDERED: EPIDURAL/PCA KEYS XX PRN (14:30)
[2016-09-24] MEDS ORDERED: FAT EMULSION IV 20% 500 ML IV SCH (18:00)
[2016-09-24] MEDS ORDERED: MULTIVITAMIN -ADULT INJECTION 10 ML, CR/CU/SE/MN/ZN INJ 1 ML in AMINO AC/ELECTROLYTE/DE... IV SCH (18:00)
--- NOTE | 2016-09-25 15:02 | CCN ---
DATE: 09/24/2016 NOTE: I was asked by Dr. Calle to evaluate Mr. Quintero for mechanical ventilation recommendations. Mr. Quintero is a 65-year-old white male who was admitted on 09/02 with a small bowel obstruction that was unable to be treated conservatively. He failed conservative management and underwent small bowel resection for ischemic bowel. Difficulties during this admission included atrial fibrillation with rapid ventricular response, elevated WBC count, for which he has been on multiple antibiotics (only positive cultures were a few Enterococcus cloacae from both his abdominal wound and sputum), significant oxygen requirements (initially via mechanical ventilation, 09/04/2016 through 09/12/2016 and then by high flow oxygen; on 8 liters high flow this morning), severe protein malnutrition, poor wound healing and anemia that required 2 packed red blood cells recently. At his baseline, he has underlying mild retardation, history of seizures and a colostomy. He was receiving nutrition both by tube feeds and TPN and appears to be tolerating his tube feeds well. Throughout this admission he has had difficulty tolerating oral secretions. Last evening, he became unresponsive with tachypnea and was intubated. Upon intubation, tube feedings were aspirated and appears the likely cause of his decompensation was aspiration. Currently, Mr. Quintero is intubated and sedated. He has significant oral secretions and is frequently requiring oral suctioning. He also has significant lower airway secretions that are suctioned and are thin and clearish in color. He is responsive to voice and responded to his sister calling his name at bedside. He is febrile and is tachycardic. His mean arterial pressure has been acceptable, though he has had a few times when he will have decreased pressure, but it typically rebounds in short order. CURRENT MEDICATIONS: - TPN - amiodarone 150 mg IV daily - fluconazole 400 mg IV every 24 hours - Keppra 500 mg IV twice a day - Zosyn 3.375 grams IV every 6 hours - valproic acid 500 mg IV every 8 hours - acetaminophen suppository 650 mg per rectum every 4 hours as needed - DuoNeb every 2 hours as needed - Lasix 20 mg IV twice a day - Lacosamide 15 mg IV twice a day - latanoprost 0.005% one drop both eyes at night - Xopenex nebulization every 6 hours - Lopressor 5 mg IV every 2 hours as needed for heart rate greater than 120 - nystatin topical powder - Zofran 4 mg IV every 4 hours as needed - Protonix 40 mg IV daily ALLERGIES: No known drug allergies. OBJECTIVE: PHYSICAL EXAMINATION: GENERAL: Mr. Quintero is lying in bed synchronous with the ventilator. He appears relatively comfortable with the ventilator except for times periods of suctioning either orally or lower airways. VITAL SIGNS: Temperature is now 102, pulse 135, blood pressure 108/54 with a mean arterial pressure of 78, respiratory rate in the 20s, SpO2 88% on FiO2 of 0.6. HEENT: Anicteric. Pupils are 4 mm and reactive. Nares: Nasogastric tube in place on the left. Oropharynx: Endotracheal tube in place. NECK: Supple without jugular venous distention (JVD). Without thyromegaly or masses. Trachea is midline. LYMPHATICS: Without cervical or supraclavicular lymphadenopathy. CHEST: Normal shape. LUNGS: Symmetric excursion. Good air entry. Scattered rhonchi. No significant crackles. No wheezes. Normal I-to-E. No accessory muscle usage or retractions. CARDIOVASCULAR: Tachycardic. Irregular rhythm. Normal S1, S2. No murmur, rub or gallop appreciated. ABDOMEN: Positive bowel sounds. Ostomy patent. Bandage clean and dry overlying the incision. Soft. EXTREMITIES: Warm and well perfused. Without clubbing, cyanosis, or significant edema. LABORATORY DATA: CBC from this morning showed a hemoglobin of 7.9, hematocrit 25.4, platelet count 684,000, white blood cell count 16,800 with a differential of 93% neutrophils, 2% lymphocytes, and 3% monocytes. Chemistries showed a sodium of 136, potassium 3.9, chloride 94, bicarbonate 39, anion gap 3, BUN 24, creatinine 0.9, glucose 104, calcium 7.9, magnesium 2.3, total bilirubin 0.8, AST 12, ALT 13, alkaline phosphatase 159, total protein 7.0, albumin 1.4. Arterial blood gas, either just prior to or immediately post intubation was 7.11/157/60 with a measured saturation of 85.2. Repeat blood gas after having been on the ventilator for an hour was 7.31/85/88 with a measured saturation of 97% and a base excess of 12.6. I reviewed his chest x-ray, as well as the report. As compared to his chest film from 09/20/2016, both films show upper lobe patchy opacities, more diffuse left sided opacity, which have not changed much. The right hemidiaphragms is sharp and left diaphragm remains obscured. Cardiac silhouette appears normal. Endotracheal tube is approximately 1 cm above the [place]. IMPRESSION: 1. Acute hypoxemic and hypercapnic respiratory failure requiring mechanical ventilation felt secondary to aspiration of tube feeds. 2. Severe malnutrition. 3. Persistent hypoxemia with slow recovery. 4. Leukocytosis. 5. Status post exploratory laparotomy for ischemic bowel with small bowel resection. 6. Atrial fibrillation/flutter, on amiodarone. 7. Seizure disorder. 8. Mild mental retardation. RECOMMENDATIONS: 1. Recommend continuation of mechanical ventilation and lung protective strategies. 2. I reviewed his chart and he does not have a history of aspiration. I suspect a lot of his difficulty is because of his severe malnutrition and it could be anticipated that it is going to take a prolonged period of time for his nutrition to be supplemented. 3. If the choice is to supplement him by tube feedings, I would recommend a J tube. 4. I would also recommend consideration of Botox injection to decrease the oral secretions. 5. A tracheostomy could be considered, but I do not recommend that. My concerns are that this would not prevent aspiration as the secretions would just simply be on top of the balloon. As the reason for tracheostomy would be to minimize or to slow down aspiration, this would prohibit verbal communication, which I understand has been important for him. 6. A tracheostomy would also necessitate that he move to a different facility until he could rehabilitate if that was possible as his nutrition was depleted, he would not be able to return to [facility] , which is also important for him. 7. One alternative in addition to trying to minimizing oral secretions would be strict TPN with no attempted oral feedings to minimize the chance of recurrent aspiration while he nutrition improved, though he would be at risk for all of the potential complications from prolonged TPN. PROGNOSIS: Guarded. Critical care time: 50 minutes, not including procedure time.
--- NOTE | 2016-09-26 00:36 | DSES ---
DATE OF ADMISSION: 09/02/2016 DATE OF DISCHARGE/: 09/24/2016 ADMISSION DIAGNOSIS: Partial versus complete small bowel obstruction. DISCHARGE DIAGNOSES: Incarcerated internal hernia with bowel ischemia. Acute respiratory failure. Bilateral pneumonia The patient on 09/24/2016. HOSPITAL COURSE: The patient is a 65-year-old male who is a patient from [facility]). He presented on 09/02/2016 with complaints of pain around his ostomy and low ostomy outputs. He had also had a couple episodes of nausea and vomiting. In the emergency room, his abdomen was soft. His white count was only 11.[address] scan showed a moderate partial small bowel obstruction with a transition zone in the right lower quadrant. No evidence of perforation or pneumatosis intestinalis. He was admitted to [facility], primarily treated as a partial versus complete small bowel obstruction with nasogastric (NG) tube, intravenous (IV) fluids, antibiotics. Over the next 24 hours, he did not show any signs of improvement but he did not show any signs of decline as well. However, on the next day, 09/04/2016, he tried to irrigate his ostomy, which he had done in the past. He had no output from it, and his abdomen was getting increasingly more distended, more tense. He also started to have a fever and tachycardia. Because of that, plan was to abort medical management for this partial obstruction and recommended surgery. I spoke with the patient's sister, explained surgery to her and he was brought to the operating room on 09/04/2016 for an exploratory laparotomy with extensive lysis of adhesions, release of an internal hernia, small bowel resection with primary anastomosis and repair of small bowel enterotomy, abdominal washout and drain placement. Postoperatively, he remained intubated in the intensive care unit (ICU). He was intubated for just over a week. He started to have output from his ostomy. He was tolerating tube feeds. Then, after extubation, swallow evaluation was attempted, which he failed and then he was restarted on tube feeds through the NG tube. During this time, he also was on total parenteral nutrition (TPN). He had difficult times with secretions and coughing up large amounts of mucus from his lungs. He was able to cough them up in the back of his throat but then without suctioning, he was re-aspirating everything that he coughed up. This process went on for over a week. He had difficulty with elevated white count throughout this entire time. White count the day after surgery was 7.6, and it climbed up to a max of 26.3 on 09/13/2016 and then slowly declined after that. He never had any positive blood cultures, nor any signs of infection anywhere else. He did have bilateral infiltrates on all of his chest x-rays. Postoperatively, his skin incision has slight drainage from it, no purulent drainage at all but cultures from his wound site did come back positive for Enterobacter as well as sputum cultures. On the morning of 09/24/2016, the patient started to show signs of decline in respiratory status again. He was also showing mental changes, he was difficult to arouse. The hospitalist production posting clerk overnight checked an arterial blood gas (ABG), which showed that he had hypercarbic respiratory failure with a pH of 7.1 and a pCO2 of 156.7. Because of that, he was reintubated. During the slitting machine operator helper, the sister came in and she had a long conversation with Dr. Barrera who explained his status again and how he had declined, and at this point, he would likely need a trach and a percutaneous endoscopic gastrostomy (PEG) and those would be in place for an extended period of time. The sister did not want to have to go to that route; she chose to go with comfort measures only. I came in to see them again around noon and discussed the Medical Orders for Life-Sustaining Treatment (MOLST) form with her. She decided that she wanted to make him DO NOT RESUSCITATE (DNR), and she also wanted to remove tube feeds, all IV fluids, medications and extubate him as well. After signing the MOLST form, he had orders placed for morphine drip, scopolamine. Once those were all started, he was extubated and placed on oxygen and soon afterwards.
== END 2016-09-24 16:42 | disposition expired | DRG 329 ==
LOC: EDBD 23:17 → M ED 09-02 00:25 → M ED INP 09-02 03:13 → M MS4PR 09-02 04:57 → M MSPAV 09-03 14:15 → M ICU 09-04 06:40
PROVIDERS: ADMIT Surgery; ATTEND Surgery
PROC: 0DNW0ZZ Release Peritoneum, Open Approach (ICD-10-PCS; 2016-09-04)
PROC: 0DNB0ZZ Release Ileum, Open Approach (ICD-10-PCS; 2016-09-04)
PROC: 0DQ80ZZ Repair Small Intestine, Open Approach (ICD-10-PCS; 2016-09-04)
PROC: 0DB80ZZ Excision of Small Intestine, Open Approach (ICD-10-PCS; 2016-09-04)
PROC: 30253N1 (ICD-10-PCS; 2016-09-04)
PROC: 30253K1 (ICD-10-PCS; 2016-09-04)
PROC: 5A1955Z Respiratory Ventilation, Greater than 96 Consecutive Hours (ICD-10-PCS; 2016-09-04)
PROC: 0DTB0ZZ Resection of Ileum, Open Approach (ICD-10-PCS; principal; 2016-09-04 08:46)
PROC: 0B948ZZ Drainage of Right Upper Lobe Bronchus, Via Natural or Artificial Opening Endoscopic (ICD-10-PCS; 2016-09-07)
PROC: 0B938ZZ Drainage of Right Main Bronchus, Via Natural or Artificial Opening Endoscopic (ICD-10-PCS; 2016-09-07)
PROC: 0B958ZZ Drainage of Right Middle Lobe Bronchus, Via Natural or Artificial Opening Endoscopic (ICD-10-PCS; 2016-09-07)
PROC: 3E0336Z Introduction of Nutritional Substance into Peripheral Vein, Percutaneous Approach (ICD-10-PCS; 2016-09-07)
PROC: 05HC33Z Insertion of Infusion Device into Left Basilic Vein, Percutaneous Approach (ICD-10-PCS; 2016-09-19)
PROC: 0BH18EZ Insertion of Endotracheal Airway into Trachea, Via Natural or Artificial Opening Endoscopic (ICD-10-PCS; 2016-09-24)
DX: K46.0 Unspecified abdominal hernia with obstruction, without gangrene (principal); K55.059 Acute (reversible) ischemia of intestine, part and extent unspecified; A41.9 Sepsis, unspecified organism; J96.01 Acute respiratory failure with hypoxia; D65 Disseminated intravascular coagulation [defibrination syndrome]; E43 Unspecified severe protein-calorie malnutrition; J18.9 Pneumonia, unspecified organism; J96.02 Acute respiratory failure with hypercapnia; R65.21 Severe sepsis with septic shock; E87.1 Hypo-osmolality and hyponatremia; I47.1 Supraventricular tachycardia; I48.4 Atypical atrial flutter; L97.129 Non-pressure chronic ulcer of left thigh with unspecified severity; Z51.5 Encounter for palliative care; Z66 Do not resuscitate; F70 Mild intellectual disabilities; N50.89 Other specified disorders of the male genital organs; L76.82 Other postprocedural complications of skin and subcutaneous tissue; G40.909 Epilepsy, unspecified, not intractable, without status epilepticus; M81.0 Age-related osteoporosis without current pathological fracture; N40.0 Benign prostatic hyperplasia without lower urinary tract symptoms; Z90.49 Acquired absence of other specified parts of digestive tract; D64.9 Anemia, unspecified; E87.6 Hypokalemia; E83.39 Other disorders of phosphorus metabolism; E83.42 Hypomagnesemia; Z93.3 Colostomy status; Z79.899 Other long term (current) drug therapy